=== PATIENT | female | born 1995 | race Caucasian/White ===

== ENCOUNTER 2016-04-21 10:24 | Emergency (ER) | payer MEDICAID ==
[2016-04-21] MEDS ORDERED: TETRACAINE HCL 0.5% OPH SOLN 2 ML OS ONE (12:04)
--- NOTE | 2016-04-21 12:26 | ER Document Report ---
ED Eye Complaint - General Chief Complaint: Eye Pain Stated Complaint: EYE PAIN Mode of Arrival: Ambulatory Information source: Patient Notes: 20-year-old female who presents to the emergency room today stating that she has had a contact in her right eye for a year and a half and that she feels as though the contact ripped in half when she was trying to remove it today. TRAVEL OUTSIDE OF THE [place] IN LAST 30 DAYS: No - HPI Onset: Other - 20-year-old female who presents to the emergency room today stating that she has had a contact in her right eye for a year and a half and that she feels as though the contact ripped in half when she was trying to remove it today Eye location: Right Injury: No Occurred at: Home Quality of pain: Achy, Burning, Dull Pain Level: 2 Contact lenses worn: Yes - Related Data Allergies/Adverse Reactions: No Known Allergies Allergy (Verified 04/21/16 10:59) Past Medical History - General Information source: Patient Last Menstrual Period: 08/27/15 - Social History Smoking Status: Current Every Day Smoker Cigarette use (# per day): Yes - 3/4 pack day Chew tobacco use (# tins/day): No Frequency of alcohol use: None Drug Abuse: None Family History: None Patient has suicidal ideation: No Patient has homicidal ideation: No Pulmonary Medical History: Reports: Hx Asthma Surgical Hx: Negative Review of Systems - Review of Systems Constitutional: No symptoms reported EENT: Eye pain, Tearing Cardiovascular: No symptoms reported Respiratory: No symptoms reported Gastrointestinal: No symptoms reported Genitourinary: No symptoms reported Female Genitourinary: No symptoms reported Musculoskeletal: No symptoms reported Skin: No symptoms reported Hematologic/Lymphatic: No symptoms reported Neurological/Psychological: No symptoms reported Physical Exam - Vital signs Vitals: Temp Pulse Resp BP Pulse Ox 97.5 F 62 16 111/61 99 04/21/16 10:41 04/21/16 10:41 04/21/16 10:41 04/21/16 10:41 04/21/16 10:41 Interpretation: Normal - General General appearance: Appears well, Alert - HEENT Head: Normocephalic, Atraumatic Eyes: Normal Conjunctiva: Injected Cornea: Corneal abrasion. No: Embedded foreign body, Flourescein stain uptake, Opacified, Superficial foreign body Extraocular movements intact: Yes Eyelashes: Normal Pupils: PERRL Visual acuity- Right eye: 20/40 Visual acuity- Left eye: 20/70 Visual acuity- Both eyes: 20/50 Corrective lenses worn: Yes - glasses but wrong prescription pt states Lids everted for exam: left: Normal - right eye red and irritated with an abrasion at the 6:00 Position laterally - Respiratory Respiratory status: No respiratory distress Chest status: Nontender Breath sounds: Normal Chest palpation: Normal - Cardiovascular Rhythm: Regular Heart sounds: Normal auscultation Murmur: No - Abdominal Inspection: Normal Distension: No distension Bowel sounds: Normal Tenderness: Nontender Organomegaly: No organomegaly - Back Back: Normal, Nontender - Extremities General upper extremity: Normal inspection, Nontender, Normal color, Normal ROM , Normal temperature General lower extremity: Normal inspection, Nontender, Normal color, Normal ROM , Normal temperature, Normal weight bearing. No: Teto's sign - Neurological Neuro grossly intact: Yes Cognition: Normal Orientation: AAOx4 Eduard Coma Scale Eye Opening: Spontaneous Eduard Coma Scale Verbal: Oriented Gause Coma Scale Motor: Obeys Commands Eduard Coma Scale Total: 15 Speech: Normal Motor strength normal: LUE, RUE, LLE, RLE Sensory: Normal - Psychological Associated symptoms: Normal affect, Normal mood - Skin Skin Temperature: Warm Skin Moisture: Dry Skin Color: Normal Course - Vital Signs Vital signs: Temp Pulse Resp BP Pulse Ox 97.5 F 62 16 111/61 99 04/21/16 10:41 04/21/16 10:41 04/21/16 10:41 04/21/16 10:41 04/21/16 10:41 - Transfer of Care Notes: 04/21/16 12:25 Patient was advised to follow-up with her eye doctor in 24-48 hours return to the emergency room for absolutely any change worsening condition antibiotic ointment has been prescribed and provided in the department. Discharge - Discharge Clinical Impression: Corneal abrasion due to contact lens Condition: Stable Disposition: HOME, SELF-CARE Instructions: Corneal Abrasion ([facility]) Additional Instructions: Corneal Abrasion You have a corneal abrasion, a scratch on the surface of the eye. The pain of a corneal abrasion feels like a sharp particle in the eye. Usually, antibiotics are placed in the eye to prevent infection. Occasionally, medication will be placed in the eye to dilate the pupil. This is done to relieve some of your discomfort and is only temporary. Pain medication may be required. Don't drive or operate machinery until you have the use of both your eyes. The abrasion usually is healed in one or two days. A follow-up examination to confirm healing is recommended. Call the doctor or return at once if you develop severe pain, decreasing vision, eye swelling, or purulent drainage. Prescriptions: Ciprofloxacin HCl/Dexameth [Ciprodex Otic Suspension 7.5 ml Bottle] 4 drop OT BID #1 bottle Forms: Smoking Cessation Education
[2016-04-21 12:38] VITALS: BP 106/51
== END 2016-04-21 12:37 | disposition home or self-care (01) ==
LOC: ER 10:24
DX: H18.821 Corneal disorder due to contact lens, right eye (principal); F17.200 Nicotine dependence, unspecified, uncomplicated; J45.909 Unspecified asthma, uncomplicated
CPT/HCPCS: 99283; J3490

== ENCOUNTER 2016-06-05 20:22 | Emergency (ER) | payer MEDICAID ==
[2016-06-05] MEDS ORDERED: ACETAMINOPHEN 325 MG TABLET PO ONE (21:50)
--- NOTE | 2016-06-05 21:50 | ER Document Report ---
ED Medical Screen (RME) - General Stated Complaint: FEVER Time seen by provider: 21:47 Mode of Arrival: Wheelchair Information source: Patient Notes: 21-year-old female presents to ED for fever cough runny nose pain in her chest when she coughs pain in her abdomen when she coughs and she is was due on June 02. States she has had this cold symptoms for 3 days. States her next OB appointment is Wednesday [facility]. I have greeted and performed a rapid initial assessment of this patient. A comprehensive ED assessment and evaluation of the patient, analysis of test results and completion of medical decision making process will be conducted by an additional ED providers. TRAVEL OUTSIDE OF THE [place] IN LAST 30 DAYS: No - Related Data Allergies/Adverse Reactions: No Known Allergies Allergy (Verified 04/21/16 10:59) Past Medical History Pulmonary Medical History: Reports: Hx Asthma
[2016-06-05] MEDS: ALBUTEROL SULFATE 0.083% NEB 2.5 MG/3 ML AMPUL NEB SCH ×2 (22:02→22:26)
== END 2016-06-06 00:15 | disposition left against medical advice (07) ==
LOC: ER 20:22
DX: R50.9 Fever, unspecified (principal); R05 Cough; R09.89 Other specified symptoms and signs involving the circulatory and respiratory systems; R07.89 Other chest pain; R10.9 Unspecified abdominal pain; J45.909 Unspecified asthma, uncomplicated; Z53.20 Procedure and treatment not carried out because of patient's decision for unspecified reasons
CPT/HCPCS: 94640 ×2; 99281; J3490

== ENCOUNTER 2016-06-07 10:51 | Outpatient (CLI) | payer MEDICAID ==
[2016-06-07 11:56] LABS: APPEARANCE,URINE CLOUDY; BILIRUBIN,URINE NEGATIVE (NEGATIVE); GLUCOSE, URINE NEGATIVE (NEGATIVE); KETONES,URINE NEGATIVE (NEGATIVE); LEUKOCYTE ESTERASE,URINE MODERATE (NEGATIVE); NITRITE,URINE NEGATIVE (NEGATIVE); PROTEIN,URINE 30 mg/dL (NEGATIVE); UROBILINOGEN,URINE NEGATIVE mg/dL (<2.0)
--- NOTE | 2016-06-07 12:02 | L&D Flow Sheet ---
LD Flowsheet Datetime Report Generated by CPN: 06/07/2016 12:00 Datetime: 06/07/2016 11:49 Vital Signs NBP Sys/Denise/Mean (mmHg): 128 (QS system process) : 83 (QS system process) : 101 (QS system process) Pulse: 79 (QS system process) Datetime: 06/07/2016 11:47 Monitor Interventions for UA: [place] Adjusted (Krystle Marlatt, RN) Datetime: 06/07/2016 11:30 Uterine Activity Monitor Mode: External; Palpation (Krystle Marlatt, RN) Frequency (min): irreg (Krystle Marlatt, RN) Quality: Mild (Krystle Marlatt, RN) Duration (sec): 50-60 (Krystle Marlatt, RN) Resting Tone (Palpate): Relaxed (Krystle Marlatt, RN) Assessment A Monitor Mode: External US (Krystle Marlatt, RN) FHR Baseline Rate : 115 (Krystle Marlatt, RN) Variability: Moderate 6-25 bpm (Krystle Marlatt, RN) Accelerations: 15X15 (Krystle Marlatt, RN) Decelerations: None (Krystle Marlatt, RN) Datetime: 06/07/2016 11:19 Vital Signs NBP Sys/Denise/Mean (mmHg): 120 (QS system process) : 66 (QS system process) : 87 (QS system process) Pulse: 69 (QS system process) Datetime: 06/07/2016 11:15 Frequency (min): every 5 minutes (Krystle Parr, RIAZ) Pain Pain Scale: 2 (Krystle Parr RN) Pain Presence: Intermittent (Krystle Parr RN) Pain Type: Cramping; Contraction (Krystle Parr RN) Pain Location: Abdomen (Krystle Parr RN) Pain Goal: 1 (Krystle Parr RN) Pain Relief Measures: Comfort Measures (Krystle Parr RN) Pain Coping: Talking Through Contractions; Breathing Through Contractions (Krystle Parr, RIAZ) Vaginal Bleeding: Normal Show (Krystle Parr, RIAZ) Rivera's Score Dilatation (cm): Closed (Krystle Marlatt, RN) Effacement: 0-30_ effaced (Krystle Marlatt, RN) Station: minus 3 (Krystle Marlatt, RN) Consistency: Medium (Krystle Marlatt, RN) Position: Posterior (Krystle Marlatt, RN) Total Rivera's Score: 1 (QS system process) : 0-4 = Unfavorable cervix (QS system process) Maternal Assessment Level of Consciousness: Fully Conscious (Krystle Marlatt, RN) DTR's/Clonus: DTRs 2+; No Clonus (Krystle Marlatt, RN) Headache: Denies (Krystle Marlatt, RN) Breath Sounds, Left: Clear and Equal (Krystle Marlatt, RN) Breath Sounds, Right: Clear and Equal (Krystle Marlatt, RN) Nausea/Vomiting: Denies (Krystle Marlatt, RN) RUQ Epigastric Pain: Denies (Krystle Marlatt, RN) Teaching Instructional Method: Demo; Verbal; Patient Instructed; Family/Support Person Instructed; Verbalized Understanding (Krystle Parr, RN) Plan of Care: Plan of Care Discussed (Krystle Parr, RN) Unit Routine: [place]wey to Room; Call Reich; Bed; Monitoring (Krystle Parr, RN) Pain Management: Comfort Measures (Krystle Parr, RN) Datetime: 06/07/2016 11:14 Patient Care Patient Position/Activity: Left Lateral; Low Fowlers (Krystle Parr, RN) Datetime: 06/07/2016 11:10 Vaginal Exam Dilatation (cm): 0.5 (Krystle Parr RN) Effacement (%): 20 (Krystle Prar RN) Station: -4 (Krystle Parr RN) Exam by: Parish Parr RN (Krystle Parr RN) Vaginal Bleeding: Scant (Krystle Parr RN) Cervix, Position: Posterior (Krystle Parr RN)
[2016-06-07 12:20] LABS: URINE BARBITURATES SCREEN NEGATIVE; URINE METHADONE SCREEN NEGATIVE; URINE OPIATES LOW NEGATIVE; URINE PHENCYCLIDINE SCREEN NEGATIVE
[2016-06-07] MEDS ORDERED: HYDROXYZINE PAMOATE 50 MG CAPSULE ONE (12:55)
== END 2016-06-07 12:58 | disposition home or self-care (01) ==
LOC: LC 10:51
PROVIDERS: ATTEND Obstetrics & Gynecology
PROC: 4A1HXCZ Monitoring of Products of Conception, Cardiac Rate, External Approach (ICD-10-PCS; principal; 2016-06-07)
DX: O47.1 False labor at or after 37 completed weeks of gestation (principal); Z3A.40 40 weeks gestation of pregnancy
CPT/HCPCS: 59025; 81005; 80307; J3490

== ENCOUNTER 2016-06-08 10:06 | Inpatient (IN) | payer MEDICAID ==
--- NOTE | 2016-06-08 10:10 | Non Stress Test Report ---
Non Stress Test Datetime Report Generated by CPN: 06/08/2016 10:10 DEMOGRAPHIC EGA NST: 40.5 INDICATION Indication for Study: Other Indication for Study (NST) Other: Labor Check MONITORING Monitor Explained: Monitor Explained; Test Explained; Patient Verbalized Understanding Time on Monitor: 06/07/2016 11:13 Time off Monitor: 06/07/2016 11:54 NST Duration: 41 NST INTERVENTIONS NST Interventions: PO Hydration Physician Notified NST: Dr. Triplett BABY A: [id number] Movement : Present Contraction Frequency : irreg FHR Baseline : 115 Accelerations : 15X15 Decelerations : None Variability : Moderate 6-25bpm NST Review: Meets Criteria for Reactive NST NST Review and Verified By : Hank Cummings RN NST Results: Reactive NST REPORT Report Trigger: Send Report
[2016-06-08] MEDS ORDERED: MISOPROSTOL 0.2 MG TABLET ONE (10:30)
[2016-06-08] MEDS ORDERED: LIDOCAINE 1% INJ-PF (10 MG/ML) 30 ML SDV ONE (10:30)
[2016-06-08] MEDS ORDERED: OXYTOCIN/NORMAL SALINE 20 UNIT/1,000 ML RTUINJ ONE ×2 (10:30→17:31)
[2016-06-08] MEDS ORDERED: PENICILLIN G-K 5 MILLION UNIT VIAL ONE ×2 (10:47→14:27)
[2016-06-08] MEDS ORDERED: PENICILLIN G POTASSIUM 5,000,000 UNIT in DEXTROSE 5%-WATER 100 ML IV ONE (11:07)
[2016-06-08] MEDS ORDERED: RINGERS SOLUTION,LACTATED 1,000 ML IV PRN (11:07)
[2016-06-08] MEDS ORDERED: RINGERS SOLUTION,LACTATED 1,000 ML IV ONE (11:07)
[2016-06-08 11:25] LABS: HEMATOCRIT 37.1 % (36.0-47.0); HEMOGLOBIN 12.2 g/dL (12.0-15.5); HGB HCT DIFFERENCE -0.5; MEAN CORPUSCULAR HGB CONC 32.9 g/dL (32.0-36.0); MEAN CORPUSCULAR VOLUME 85 fl (80-97); RED BLOOD COUNT 4.36 10^6/uL (3.72-5.28); RED CELL DISTRIBUTION WIDTH 13.5 % (11.5-14.0); WHITE BLOOD COUNT 29.9 10^3/uL (4.0-10.5)
[2016-06-08] MEDS ORDERED: EPHEDRINE SULFATE INJ 50 MG/1 ML AMPULE ONE (11:39)
[2016-06-08] MEDS ORDERED: FENTANYL/BUPIVACAINE/NS/PF 200 MCG/100 ML RTUINJ EPI ONE (11:39)
[2016-06-08] MEDS ORDERED: BUPIVACAINE HCL 0.25 % INJ/PF (2.5 MG/1 ML) 30 ML VIAL ONE (11:39)
[2016-06-08 11:49] LABS: BASOPHILS % (MANUAL) 0 % (0-2); EOSINOPHILS % (MANUAL) 0 % (0-6); LYMPHOCYTES % (MANUAL) 5 % (13-45); RBC MORPHOLOGY COMMENT NORMO-CYTIC/CHROMIC; TOTAL CELLS COUNTED 100
--- NOTE | 2016-06-08 12:01 | L&D Flow Sheet ---
LD Flowsheet Datetime Report Generated by CPN: 06/08/2016 12:00 Datetime: 06/08/2016 11:57 Pulse: 112 (QS system process) SpO2 (%): 99 (QS system process) Datetime: 06/08/2016 11:56 Procedure Verify: Correct Patient Identity; Correct Side and Site are Marked; Accurate Procedure Consent Form; Agreement on Procedure to be Done; Correct Patient Position; Relevant Images and Results are Properly Labeled and Displayed; Addressed Need to Administer Antibiotics or Fluids for Irrigation; Safety Precautions Based on Patient History or Medication Use (Deny Mac RN) Anesthesia Plans: Epidural (Deny Mac RN) Epidural Positioning: Sitting (Deny Mac RN) Anesthesia Comments: Dr Bartholomew at bedside for epidural, consent signed (Deny Mac RN) Datetime: 06/08/2016 11:53 NBP Sys/Denise/Mean (mmHg): 173 (QS system process) : 71 (QS system process) : 102 (QS system process) Pulse: 102 (QS system process) Comments: Monitors removed for epidural placement; RN remains at bedside to attempt to obtain fht and assess pt. (Deny Mac RN) Procedure Verify: Correct Patient Identity; Correct Side and Site are Marked; Accurate Procedure Consent Form; Agreement on Procedure to be Done; Correct Patient Position; Relevant Images and Results are Properly Labeled and Displayed; Addressed Need to Administer Antibiotics or Fluids for Irrigation; Safety Precautions Based on Patient History or Medication Use (Deny Mac RN) Anesthesia Plans: Epidural (Deny Mac RN) Epidural Positioning: Sitting (Deny Mac RN) Datetime: 06/08/2016 11:52 Pulse: 124 (QS system process) SpO2 (%): 98 (QS system process) Datetime: 06/08/2016 11:46 Procedure Verify: Correct Patient Identity; Correct Side and Site are Marked; Accurate Procedure Consent Form; Agreement on Procedure to be Done; Relevant Images and Results are Properly Labeled and Displayed; Addressed Need to Administer Antibiotics or Fluids for Irrigation; Safety Precautions Based on Patient History or Medication Use (Deny Mac RN) Anesthesia Plans: Epidural (Deny Mac RN) Communication Comments: Dr Bartholomew called pt requesting epidural (Deny Mac RN) Datetime: 06/08/2016 11:22 NBP Sys/Denise/Mean (mmHg): 145 (QS system process) : 95 (QS system process) : 115 (QS system process) Pulse: 96 (QS system process) Datetime: 06/08/2016 11:08 Communication Comments: A Emmel CNM states pt may have epidural (Deny Bubba, RN) Datetime: 06/08/2016 11:03 IV/Blood Work: IV Bag Number @ 2 (Deny Bubba, RN) Patient Position/Activity: Left Lateral (Deny Bubba, RN) Datetime: 06/08/2016 10:52 NBP Sys/Denise/Mean (mmHg): 124 (QS system process) : 64 (QS system process) : 87 (QS system process) Pulse: 91 (QS system process) Datetime: 06/08/2016 10:46 Antibiotics: Start Antibiotics; Penicillin IV (Units) @ [id number] (Deny Bubba, RN) Medication Comments: IVPB (Deny Bubba, RN) Datetime: 06/08/2016 10:35 IV/Blood Work: IV Bolus Started (Deny Bubba, RN) Patient Care Comments: LR (Deny Bubba, RN) Datetime: 06/08/2016 10:33 IV/Blood Work: IV Started (Deyn Bubba, RN) Datetime: 06/08/2016 10:28 Procedures: Consents Signed (Deny Bubba, RN) Datetime: 06/08/2016 10:25 Exam by: A Emmel CNM (Deny Mac, RN) Vaginal Exam Comments: Anterior Lip (Deny Mac, RN) Preparation for Delivery: Setup for Delivery (Deny Mac, RN) Communication Comments: A Emmel CNM at bedside to assess pt (Deny Mac, RN) Datetime: 06/08/2016 10:22 NBP Sys/Denise/Mean (mmHg): 120 (QS system process) : 59 (QS system process) : 82 (QS system process) Pulse: 102 (QS system process)
[2016-06-08 13:31] LABS: APPEARANCE,URINE SLIGHTLY-CLOUDY; BILIRUBIN,URINE NEGATIVE (NEGATIVE); GLUCOSE, URINE NEGATIVE (NEGATIVE); KETONES,URINE 80 mg/dL (NEGATIVE); LEUKOCYTE ESTERASE,URINE TRACE (NEGATIVE); NITRITE,URINE NEGATIVE (NEGATIVE); PROTEIN,URINE 30 mg/dL (NEGATIVE); URINE SPECIFIC GRAVITY 1.027; UROBILINOGEN,URINE NEGATIVE mg/dL (<2.0)
[2016-06-08] MEDS ORDERED: PENICILLIN G-K 5 MILLION UNIT VIAL IV SCH (14:00)
--- NOTE | 2016-06-08 14:01 | L&D Flow Sheet ---
LD Flowsheet Datetime Report Generated by CPN: 06/08/2016 14:00 Datetime: 06/08/2016 13:46 NBP Sys/Denise/Mean (mmHg): 107 (QS system process) : 58 (QS system process) : 77 (QS system process) Pulse: 125 (QS system process) Datetime: 06/08/2016 13:41 Patient Care Comments: juice given (Deny Bubba, RN) Datetime: 06/08/2016 13:30 NBP Sys/Denise/Mean (mmHg): 105 (QS system process) : 56 (QS system process) : 74 (QS system process) Pulse: 107 (QS system process) Respirations: 16 (Deny Mac RN) Monitor Mode: External; Palpation (Deny Mac, RN) Frequency (min): 6-7 (Deny Mac, RN) Quality: Mild/Moderate (Deny Mac, RN) Duration (sec): 80-90 (Deny Goodet, RN) Duration Criteria: Less than Two 120 Second Contractions (Deny Mac, RN) Resting Tone (Palpate): Relaxed (Deny Mac, RN) Monitor Mode: External US (Deny Mac, RN) FHR Baseline Rate : 120 (Deny Goodet, RN) Variability: Moderate 6-25 bpm (Deny Bubba, RN) Accelerations: 15X15 (Deny Rajputeet, RN) Decelerations: None (Deny Mac, RN) Level of Consciousness: Fully Conscious (Deny Mac, RN) Headache: Denies (Deny Mac, RN) Nausea/Vomiting: Denies (Deny Mac, RN) RUQ Epigastric Pain: Denies (Deny Mac, RN) Communication: RN at Bedside; RN Reviewed Strip (Deny Mac RN) Datetime: 06/08/2016 13:16 NBP Sys/Denise/Mean (mmHg): 106 (QS system process) : 60 (QS system process) : 76 (QS system process) Pulse: 110 (QS system process) Datetime: 06/08/2016 13:15 Temperature (F): 97.3 (Deny Bubba, RN) Temperature (C): 36.3 (QS system process) Monitor Mode: External; Palpation (Deny Mac, RN) Frequency (min): 2-5 (Deny Bubba, RN) Quality: Mild/Moderate (Deny Bubba, RN) Duration (sec): 70-90 (Deny Bubba, RN) Duration Criteria: Less than Two 120 Second Contractions (Deny Bubba, RN) Pattern: Normal: <= 5 Contractions in 10 Minutes (Deny Bubba, RN) Resting Tone (Palpate): Relaxed (Deny Bubba, RN) Monitor Mode: External US (Deny Goodet, RN) FHR Baseline Rate : 120 (Deny Bubba, RN) FHR Baseline Changes: No Baseline Change (Deny Bubba, RN) Variability: Moderate 6-25 bpm (Deny Bubba, RN) Accelerations: 15X15 (Deny Bubba, RN) Decelerations: None (Deny Mac RN) Communication: RN at Bedside; RN Reviewed Strip (Deny Mac RN) Datetime: 06/08/2016 13:00 Monitor Mode: External; Palpation (Deny Mac RN) Monitor Interventions for UA: [place] Adjusted (Deny Mac RN) Quality: Mild/Moderate (Deny Mac RN) Resting Tone (Palpate): Relaxed (Deny Mac RN) Contraction Comments: UTD; Rn adjusted (Deny Mac RN) Monitor Mode: External US (Deny Mac RN) FHR Baseline Rate : 120 (Deny Mac RN) Variability: Moderate 6-25 bpm (Deny Mac RN) Accelerations: 15X15 (Deny Mac RN) Decelerations: None (Deny Mac RN) Comments: Broken tracing, RN adjusting (Deny Mac RN) Pain Scale: 2 (Deny Mac RN) Pain Presence: Intermittent (Deny Mac RN) Pain Type: Contraction (Deny Mac RN) Pain Location: Abdomen; Back (Deny Mac RN) Pain Relief Measures: Epidural Given; Comfort Measures (Deny Mac RN) Pain Coping: Sleeping; Declines Medication or Epidural (Deny Mac RN) Communication: RN at Bedside; RN Reviewed Strip (Deny Mac RN) Datetime: 06/08/2016 12:46 NBP Sys/Denise/Mean (mmHg): 121 (QS system process) : 59 (QS system process) : 84 (QS system process) Pulse: 95 (QS system process) Datetime: 06/08/2016 12:45 Monitor Mode: External; Palpation (Deny Bubba, RN) Frequency (min): 5-6 (Deny Bubba, RN) Quality: Mild/Moderate (Deny Bubba, RN) Duration (sec): 70-90 (Deny Bubba, RN) Duration Criteria: Less than Two 120 Second Contractions (Deny Bubba, RN) Pattern: Normal: <= 5 Contractions in 10 Minutes (Deny Bubba, RN) Resting Tone (Palpate): Relaxed (Deny Bubba, RN) Monitor Mode: External US (Deny Bubba, RN) FHR Baseline Rate : 120 (Deny Bubba, RN) FHR Baseline Changes: No Baseline Change (Deny Bubba, RN) Variability: Moderate 6-25 bpm (Deny Bubba, RN) Accelerations: 15X15 (Deny Bubba, RN) Decelerations: None (Deny Mac RN) Communication: RN at Bedside; RN Reviewed Strip (Deny Mac RN) Datetime: 06/08/2016 12:32 NBP Sys/Denise/Mean (mmHg): 120 (QS system process) : 55 (QS system process) : 81 (QS system process) Pulse: 116 (QS system process) Datetime: 06/08/2016 12:30 Monitor Mode: External; Palpation (Deny Mac RN) Frequency (min): 3.5-5 (Deny Mac RN) Quality: Mild/Moderate (Deny Mac RN) Duration (sec): 70-80 (Deny Mac RN) Duration Criteria: Less than Two 120 Second Contractions (Deny Mac RN) Pattern: Normal: <= 5 Contractions in 10 Minutes (Deny Mac RN) Resting Tone (Palpate): Relaxed (Deny Mac RN) Monitor Mode: External US (Deny Mac RN) FHR Baseline Rate : 120 (Deny Mac, RN) Variability: Moderate 6-25 bpm (Deny Mac, RN) Accelerations: 15X15 (Deny Mac, RN) Decelerations: None (Deny Mac RN) Communication: RN at Bedside; RN Reviewed Strip (Deny Mac RN) Datetime: 06/08/2016 12:17 Pulse: 128 (QS system process) SpO2 (%): 97 (QS system process) Datetime: 06/08/2016 12:16 IV/Blood Work: IV Bag Number @ 3 (Deny Mac RN) Patient Care Comments: LR 125ml/hr (Deny Mac RN) Datetime: 06/08/2016 12:15 NBP Sys/Denise/Mean (mmHg): 112 (QS system process) : 56 (QS system process) : 79 (QS system process) Pulse: 105 (QS system process) Contraction Comments: UTD; RN adjusting (Deny Mac RN) Monitor Mode: External US (Deny Mac RN) FHR Baseline Rate : 120 (Deny Mac RN) Variability: Moderate 6-25 bpm (Deny Mac RN) Accelerations: None (Deny Mac RN) Decelerations: None (Deny Mac RN) Comments: Broken tracing; RN adjusting (Deny Mac RN) I/O Interventions: Garg Cath Inserted (Deny Mac RN) Patient Care Comments: 14F pt tolerated well, clear yellow urine output (Deny Mac RN) Communication: RN at Bedside; RN Reviewed Strip (Deny Mac RN) Datetime: 06/08/2016 12:14 NBP Sys/Denise/Mean (mmHg): 116 (QS system process) : 59 (QS system process) : 81 (QS system process) Pulse: 103 (QS system process) Datetime: 06/08/2016 12:13 NBP Sys/Denise/Mean (mmHg): 121 (QS system process) : 67 (QS system process) : 87 (QS system process) Pulse: 100 (QS system process) Datetime: 06/08/2016 12:12 NBP Sys/Denise/Mean (mmHg): 120 (QS system process) : 66 (QS system process) : 85 (QS system process) Pulse: 113 (QS system process) Datetime: 06/08/2016 12:11 NBP Sys/Denise/Mean (mmHg): 120 (QS system process) : 61 (QS system process) : 82 (QS system process) Pulse: 111 (QS system process) Datetime: 06/08/2016 12:10 NBP Sys/Denise/Mean (mmHg): 122 (QS system process) : 58 (QS system process) : 84 (QS system process) Pulse: 87 (QS system process) Pain Scale: 3 (Deny Bubba, RN) Pain Presence: Intermittent (Deny Bubba, RN) Pain Type: Contraction (Deny Bubba, RN) Pain Location: Abdomen (Deny Bubba, RN) Anesthesia Level Check: T10- Umbilicus (Deny Bubba, RN) Datetime: 06/08/2016 12:07 NBP Sys/Denise/Mean (mmHg): 152 (QS system process) : 72 (QS system process) : 104 (QS system process) Pulse: 112 (QS system process) Datetime: 06/08/2016 12:06 NBP Sys/Denise/Mean (mmHg): 148 (QS system process) : 81 (QS system process) : 109 (QS system process) Pulse: 91 (QS system process) Datetime: 06/08/2016 12:05 NBP Sys/Denise/Mean (mmHg): 143 (QS system process) : 85 (QS system process) : 109 (QS system process) Pulse: 111 (QS system process) Epidural Procedure: Cath Placed; Loading Dose (Deny Bubba, RN) Datetime: 06/08/2016 12:04 Epidural Procedure: Test Dose (Deny Bubba, RN) Datetime: 06/08/2016 12:02 Pulse: 101 (QS system process) SpO2 (%): 99 (QS system process) Datetime: 06/08/2016 12:00 Monitor Mode: External; Palpation (Deny Mac RN) Frequency (min): 4-6 (Deny Mac RN) Quality: Moderate (Deny Mac RN) Duration (sec): 70-90 (Deny Mac RN) Duration Criteria: Less than Two 120 Second Contractions (Deny Mac RN) Pattern: Normal: <= 5 Contractions in 10 Minutes (Deny Mac RN) Resting Tone (Palpate): Relaxed (Deny Mac RN) Monitor Mode: External US (Deny Mac RN) FHR Baseline Rate : 120 (Deny Mac RN) Variability: Moderate 6-25 bpm (Deny Mac RN) Accelerations: 15X15 (Deny Mac RN) Decelerations: None (Deny Mac RN) Comments: Broken tracing, RN adjusting (Deny Bubba, RN) Communication: RN at Bedside; RN Reviewed Strip (Deny Mac RN)
[2016-06-08 14:05] LABS: URINE BARBITURATES SCREEN NEGATIVE; URINE METHADONE SCREEN NEGATIVE; URINE OPIATES LOW NEGATIVE; URINE PHENCYCLIDINE SCREEN NEGATIVE
[2016-06-08] MEDS ORDERED: DINOPROSTONE 10 MG VAGINAL INSERT.SR PV PRN (14:46)
[2016-06-08] MEDS ORDERED: OXYTOCIN/NORMAL SALINE 1,000 ML IV PRN ×2 (14:46→16:45)
[2016-06-08] MEDS ORDERED: PENICILLIN G POTASSIUM 2,500,000 UNIT in DEXTROSE 5%-WATER 50 ML IV SCH (15:09)
[2016-06-08] MEDS ORDERED: CITRIC ACID/SODIUM CITRATE ORAL SOLN 15 ML UDCUP ONE (15:17)
[2016-06-08] MEDS ORDERED: AMPICILLIN SOD INJ 2 GM VIAL ONE (15:17)
[2016-06-08] MEDS ORDERED: PROMETHAZINE HCL INJ 25 MG/1 ML VIAL IV PRN ×2 (15:53→16:45)
[2016-06-08] MEDS ORDERED: FENTANYL CITRATE INJ/PF 100 MCG/2 ML AMPUL IV PRN ×3 (15:53)
[2016-06-08] MEDS ORDERED: DIPHENHYDRAMINE HCL 50 MG/ML VIAL IV PRN (15:53)
[2016-06-08] MEDS ORDERED: ONDANSETRON HCL INJ/PF 4 MG/2 ML SDV IV PRN (15:53)
[2016-06-08] MEDS ORDERED: MEPERIDINE HCL/PF INJ 25 MG/1 ML DISP.SYRIN IV PRN (15:53)
--- NOTE | 2016-06-08 16:01 | L&D Flow Sheet ---
LD Flowsheet Datetime Report Generated by CPN: 06/08/2016 16:00 Datetime: 06/08/2016 15:16 NBP Sys/Denise/Mean (mmHg): 120 (QS system process) : 68 (QS system process) : 88 (QS system process) Pulse: 118 (QS system process) Datetime: 06/08/2016 15:15 Dilatation (cm): 10.0 (Deny Mac RN) Effacement (%): 100 (Deny Mac, RN) Station: -2 (Deny Bubba, RN) Exam by: Dr Levy (Deny [place]ofleet, RN) Datetime: 06/08/2016 15:11 Actions for Decelerations: Pitocin Off; IV Bolus; Sterile Vaginal Exam; Provider Reviewed Strip; Provider Notified (Deny Mac, RN) Communication Comments: Dr Levy at bedside (Deny Mac, RN) Datetime: 06/08/2016 15:10 Patient Position/Activity: Left Lateral (Deny [place], RN) Datetime: 06/08/2016 15:01 NBP Sys/Denise/Mean (mmHg): 106 (QS system process) : 59 (QS system process) : 77 (QS system process) Pulse: 118 (QS system process) Datetime: 06/08/2016 14:56 Pitocin (milliunit): Pitocin Started (milliunits) @ 2 (Deny Bubba, RN) Datetime: 06/08/2016 14:45 NBP Sys/Denise/Mean (mmHg): 110 (QS system process) : 59 (QS system process) : 79 (QS system process) Pulse: 93 (QS system process) Datetime: 06/08/2016 14:41 Temperature (F): 97.9 (Deny Mac RN) Temperature (C): 36.6 (QS system process) Datetime: 06/08/2016 14:39 Pulse: 119 (QS system process) SpO2 (%): 97 (QS system process) Datetime: 06/08/2016 14:37 Dilatation (cm): 9.0 (Deny Mac RN) Effacement (%): 100 (Deny Mac RN) Station: -2 (Deny Mac RN) Exam by: Chen Cortes CNM (Deny Mac RN) Membrane Status: Ruptured (Deny Mac RN) Membranes Rupture Method: Artificial (Deny Mac RN) Amniotic Fluid Color: Light Meconium (Deny Bubba, RN) Amniotic Fluid Amount: Large (Deny Mac, RN) Amniotic Fluid Odor: Normal (Deny Mac, RN) Medication Comments: PCN [id number] units IVPB (Deny Mac, RN) Datetime: 06/08/2016 14:31 NBP Sys/Denise/Mean (mmHg): 101 (QS system process) : 63 (QS system process) : 77 (QS system process) Pulse: 90 (QS system process) Datetime: 06/08/2016 14:17 NBP Sys/Denise/Mean (mmHg): 110 (QS system process) : 56 (QS system process) : 76 (QS system process) Pulse: 129 (QS system process) Datetime: 06/08/2016 14:01 NBP Sys/Denise/Mean (mmHg): 114 (QS system process) : 58 (QS system process) : 77 (QS system process) Pulse: 110 (QS system process) Datetime: 06/08/2016 14:00 Monitor Mode: External; Palpation (Deny Mac RN) Frequency (min): 5-5.5 (Deny Mac RN) Quality: Mild/Moderate (Deny Mac RN) Duration (sec): 80-100 (Deny Mac RN) Duration Criteria: Less than Two 120 Second Contractions (Deny Mac RN) Pattern: Normal: <= 5 Contractions in 10 Minutes (Deny Mac RN) Resting Tone (Palpate): Relaxed (Deny Mac RN) Monitor Mode: External US (Deny aMc RN) FHR Baseline Rate : 120 (Deny Mac RN) Variability: Moderate 6-25 bpm (Deny Mac RN) Accelerations: 15X15 (Deny Mac RN) Decelerations: None (Deny Mac RN) Pain Scale: 2 (Deny Mac RN) Pain Coping: Sleeping (Deny aMc RN) Communication: RN at Bedside; RN Reviewed Strip (Deny Mac RN)
[2016-06-08] MEDS ORDERED: LIDOCAINE 2% INJ-PF (20 MG/ML) 10 ML AMPUL ONE (16:37)
[2016-06-08] MEDS ORDERED: FENTANYL CITRATE INJ/PF 100 MCG/2 ML AMPUL ONE (16:37)
[2016-06-08] MEDS ORDERED: DIPH/PERTUSS(ACELL)/TETANUS VAC/PF 0.5 ML SYR (>=10YO) IM PRN (16:45)
[2016-06-08] MEDS ORDERED: ACETAMINOPHEN 325 MG TABLET PO PRN (16:45)
[2016-06-08] MEDS ORDERED: MEASLES,MUMPS&RUBELLA VACC/PF 0.5 ML VIAL SUBCUT PRN (16:45)
[2016-06-08] MEDS ORDERED: OXYCODONE-ACETAMINOPHEN 5-325 MG TABLET PO PRN (16:45)
[2016-06-08] MEDS ORDERED: MORPHINE SULFATE 10 MG/ML INJ ONE (16:56)
[2016-06-08] MEDS: MORPHINE SULFATE 10 MG/ML INJ IV PRN ×2 (16:56→18:00)
[2016-06-08] MEDS ORDERED: KETOROLAC TROMETHAMINE INJ/PF 30 MG/1 ML SDV ONE (17:02)
[2016-06-08] MEDS ORDERED: FUROSEMIDE INJ/PF 40 MG/4 ML SDV ONE (17:21)
[2016-06-08] MEDS ORDERED: LORAZEPAM INJ 2 MG/1 ML VIAL ONE (17:22)
--- NOTE | 2016-06-08 18:39 | Admission Physical ---
Datetime Report Generated by CPN: 06/08/2016 18:39 CURRENT ADMISSION Chief Complaint: Uterine Contractions Admit Plan: Admit to Unit ALLERGIES Medication Allergies: No Medication Allergies: No Known Allergies (06/08/2016) Latex: No Latex Allergies Food Allergies: OBSTETRICAL HISTORY EDC: 06/02/2016 00:00 : 1 Para: 0 SEE RECORDS Alcohol: No Marijuana : No Cocaine: No Other Illicit Drugs: No Cigarettes: Current Everyday Smoker. [id number] Cigarette Frequency: 5 - 10 per day Advised to Stop: Yes PHYSICAL EXAM General: Normal HEENT: Normal Neurologic: Normal Thyroid: Normal Heart: Normal Lungs: Normal Breast: Normal Back: Normal Abdomen: Normal Genitourinary Exam: Normal Extremities: Normal DTRs: Normal Pelvic Type: Adequate Vital Signs: Reviewed VAGINAL EXAM Dilatation: 9 Effacement: 100 Station: 0 MEMBRANES Membranes: Intact FETUS A EGA: 40.6 Monitoring: External US FHR- Baseline: 120 Variability: Moderate 6-25bpm Accelerations: 15X15 FHR Category: Category I Presentation: Vertex Admit Comment: 21 yo admitted in active labor sent from office EDC 06/02/16 EGA 40.6 history of drug addiction 2 years ago depression smoker- 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
--- NOTE | 2016-06-08 18:54 | Delivery Summary ---
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 bicornuate uterus Rh negative GBS positive cvx / intact ctxs- moderate palpation admit gbs prophylaxis pain management anticipate vaginal delivery expectant management DELIVERY PERSONNEL Delivery Doctor:: Mildred Levy MD Anesthesiologist:: Mu Bartholomew MD INSTALLATION COORDINATOR:: Inessa Ferguson CRNA Labor and Delivery Nurse:: Deny Mac RN Equipment Operator/Laborer/Supervisor:: Deny Mac RN Neonatal Nurse Practitioner:: JANIA Moreno Nursery Nurse:: Allison Farley RN Tax Credit Leasing Consultant/CONTINUOUS PICKLING LINE PICKLER: Blane Vargas, Tax Credit Leasing Consultant/CONTINUOUS PICKLING LINE PICKLER: Allison Kang, MINE ANALYST MATERNAL INFORMATION Delivery Anesthesia: Epidural Medications After Delivery: Pitocin Bolus-Please Comment; Pitocin Drip 20 Units/1000ml NSS Estimated Blood Loss (ml): 600 LABOR SUMMARY EDC: 06/02/2016 00:00 No. Babies in Womb: 1 Attempted: No Labor Anesthesia: Epidural LABOR INFORMATION Reason for Induction: Not Applicable Onset of Labor: 06/07/2016 12:00 Complete Dilatation: 06/08/2016 15:15 Oxytocin: Augmentation Group B Beta Strep: positive Antibiotics # of Doses: 2 Antibiotics Time of Last Dose: 1437 Name of Antibiotic Given: PCN Steroids Given: None Reason Steroids Not Administered: Not Applicable MEMBRANES Membranes Rupture Method: Artificial Rupture of Membranes: 06/08/2016 14:37 Length of Rupture (hr): 1.07 Amniotic Fluid Color: Light Meconium Amniotic Fluid Amount: Large Amniotic Fluid Odor: Normal STAGES OF LABOR Stage 1 hr: 27 Stage 1 min: 15 Stage 2 hr: 0 Stage 2 min: 26 Stage 3 hr: 0 Stage 3 min: 1 Total Time in Labor hr: 27 Total Time in Labor min: 42 CSECTION DELIVERY Primary Indication: Other Other Primary Indication: Face Presentation not compatable with vaginal delivery CSection Urgency: Non-Scheduled CSection Incidence: Primary Labor: Labor Elective: Nonelective BABY A INFORMATION Delivery Date/Time: 06/08/2016 15:41 Method of Delivery: Born in Route : No : N/A Forceps: N/A Vacuum Extraction: N/A Shoulder Dystocia : No PRESENTATION/POSITION BABY A Presentation: Other Cephalic Presentation: Face Breech Presentation: N/A PLACENTA INFORMATION BABY A Placenta Delivery Time : 06/08/2016 15:42 Placenta Method of Delivery: Manual Removal Placenta Status: Delivered SCORES BABY A Heart Rate 1 min: >100 bpm Resp Effort 1 min: Good Cry Reflex Irritability 1 min: Cough or Sneeze or Pulls Away Muscle Tone 1 min: Some Flexion of Extremities Color 1 min: Body [place], Extremities Blue Resuscitation Effort 1 min: Tactile Stimulation SCORE 1 MIN: 8 Heart Rate 5 min: >100 bpm Resp Effort 5 min: Good Cry Reflex Irritability 5 min: Cough or Sneeze or Pulls Away Muscle Tone 5 min: Active Motion Color 5 min: Body [place], Extremities Blue Resuscitation Effort 5 min: Tactile Stimulation SCORE 5 MIN: 9 INFORMATION BABY A Gestational Age at Delivery: 40.6 Gestational Status: Full Term- 39- 40.6 Weeks Infant Outcome : Liveborn Condition : Stable Sex: Female IDENTIFICATION BABY A Verification Date/Time: 06/08/2016 15:54 ID Band Number: [id number] Mother's Name Verified: Yes Infant RN Verifying Infant: S Bubba RN B [place] US WEIGHT/LENGTH BABY A Infant Birthweight (gm): 2915 Infant Weight (lb): 6 Infant Weight (oz): 7 Infant Length (in): 19.00 Length (cm): 48.26 CORD INFORMATION BABY A No. Cord Vessels: 3 Nuchal Cord : N/A Cord Blood Taken: Yes-For Eval (Mom's Blood Type - or O+) Suction: Mouth; Nose ASSESSMENT BABY A Physical Findings- Other: See nursery assessment Skin to Skin: No Engineering Coordinator/ALS Called : No Infant Care By: Martine RN Transferred To: [facility]
--- NOTE | 2016-06-08 19:01 | L&D Flow Sheet ---
LD Flowsheet Datetime Report Generated by CPN: 06/08/2016 19:00 Datetime: 06/08/2016 18:22 Pulse: 105 (QS system process) SpO2 (%): 94 (QS system process) Datetime: 06/08/2016 18:20 Pulse: 110 (QS system process) SpO2 (%): 95 (QS system process) Datetime: 06/08/2016 18:17 Pulse: 106 (QS system process) SpO2 (%): 94 (QS system process) Datetime: 06/08/2016 18:15 Pulse: 106 (QS system process) SpO2 (%): 95 (QS system process) Datetime: 06/08/2016 18:11 NBP Sys/Denise/Mean (mmHg): 134 (QS system process) : 68 (QS system process) : 95 (QS system process) Pulse: 100 (QS system process) Datetime: 06/08/2016 18:10 Pulse: 107 (QS system process) SpO2 (%): 97 (QS system process) Datetime: 06/08/2016 18:05 Pulse: 99 (QS system process) SpO2 (%): 97 (QS system process) Datetime: 06/08/2016 18:01 Pulse: 102 (QS system process) SpO2 (%): 94 (QS system process) Datetime: 06/08/2016 18:00 Pulse: 101 (QS system process) SpO2 (%): 96 (QS system process) Pain Scale: 4 (Deny Bubba, RN) Pain Presence: Intermittent (Deny Bubba, RN) Pain Type: Ache (Deny Bubba, RN) Pain Location: Abdomen (Deny Bubba, RN) Datetime: 06/08/2016 17:56 NBP Sys/Denise/Mean (mmHg): 128 (QS system process) : 62 (QS system process) : 89 (QS system process) Pulse: 94 (QS system process) Pulse: 107 (QS system process) SpO2 (%): 94 (QS system process) Datetime: 06/08/2016 17:55 Pulse: 99 (QS system process) SpO2 (%): 97 (QS system process) Datetime: 06/08/2016 17:50 Pulse: 99 (QS system process) Pulse: 100 (QS system process) SpO2 (%): 94 (QS system process) Datetime: 06/08/2016 17:45 Pulse: 96 (QS system process) Pulse: 92 (QS system process) SpO2 (%): 95 (QS system process) SpO2 (%): 94 (QS system process) Datetime: 06/08/2016 17:42 NBP Sys/Denise/Mean (mmHg): 128 (QS system process) : 64 (QS system process) : 89 (QS system process) Pulse: 97 (QS system process) Datetime: 06/08/2016 17:40 Pulse: 94 (QS system process) SpO2 (%): 96 (QS system process) Datetime: 06/08/2016 17:35 Pulse: 81 (QS system process) SpO2 (%): 97 (QS system process) Datetime: 06/08/2016 17:30 Pulse: 92 (QS system process) SpO2 (%): 98 (QS system process) Datetime: 06/08/2016 17:26 NBP Sys/Denise/Mean (mmHg): 130 (QS system process) : 71 (QS system process) : 95 (QS system process) Pulse: 88 (QS system process) Datetime: 06/08/2016 17:25 Pulse: 82 (QS system process) SpO2 (%): 99 (QS system process) Datetime: 06/08/2016 17:20 Pulse: 104 (QS system process) SpO2 (%): 99 (QS system process) Datetime: 06/08/2016 17:15 Pulse: 93 (QS system process) SpO2 (%): 98 (QS system process) Datetime: 06/08/2016 17:11 NBP Sys/Denise/Mean (mmHg): 133 (QS system process) : 77 (QS system process) : 97 (QS system process) Pulse: 105 (QS system process) Datetime: 06/08/2016 17:10 Pulse: 107 (QS system process) SpO2 (%): 100 (QS system process) Datetime: 06/08/2016 17:05 Pulse: 104 (QS system process) SpO2 (%): 100 (QS system process) Datetime: 06/08/2016 17:00 Pulse: 95 (QS system process) SpO2 (%): 100 (QS system process) Pain Scale: 4 (Deny Bubba, RN) Pain Presence: Intermittent (Deny Bubba, RN) Pain Type: Ache (Deny Bubba, RN) Pain Location: Abdomen (Deny Bubba, RN) Datetime: 06/08/2016 16:57 NBP Sys/Denise/Mean (mmHg): 127 (QS system process) : 61 (QS system process) : 84 (QS system process) Pulse: 86 (QS system process) Datetime: 06/08/2016 16:55 Pulse: 85 (QS system process) SpO2 (%): 100 (QS system process) Datetime: 06/08/2016 16:51 NBP Sys/Denise/Mean (mmHg): 100 (QS system process) : 74 (QS system process) : 83 (QS system process) Pulse: 117 (QS system process) Datetime: 06/08/2016 16:50 Pulse: 110 (QS system process) SpO2 (%): 99 (QS system process) Datetime: 06/08/2016 16:49 Pulse: 113 (QS system process) SpO2 (%): 76 (QS system process) Datetime: 06/08/2016 16:46 NBP Sys/Denise/Mean (mmHg): 124 (QS system process) : 72 (QS system process) : 92 (QS system process) Pulse: 116 (QS system process) Datetime: 06/08/2016 16:45 Pulse: 88 (QS system process) Respirations: 20 (Deny Bubba, RN) SpO2 (%): 99 (QS system process) Pain Scale: 4 (Deny Bubba, RN) Pain Presence: Intermittent (Deny Bubba, RN) Pain Type: Ache (Deny Bubba, RN) Pain Location: Abdomen (Deny Bubba, RN) Datetime: 06/08/2016 16:41 NBP Sys/Denise/Mean (mmHg): 121 (QS system process) : 67 (QS system process) : 88 (QS system process) Pulse: 100 (QS system process) Datetime: 06/08/2016 16:40 Pulse: 82 (QS system process) SpO2 (%): 100 (QS system process) Datetime: 06/08/2016 16:33 Stage of : Recovery (Deny Mac RN) Respirations: 22 (Deny Mac RN) Temperature (F): 98.1 (Deny Mac RN) Temperature (C): 36.7 (QS system process) Pain Scale: 5 (Deny Mac RN) Pain Presence: Constant (Deny Mac RN) Pain Type: Ache (Deny Mac RN) Pain Location: Abdomen (Deny Mac RN) Pain Relief Measures: Comfort Measures (Deny Mac RN) Datetime: 06/08/2016 15:21 Antibiotics: Ampicillin IV 2 Gm (Deny Mac RN) Antiemetics/Antacids: Bicitra 15 ml PO (Deny Mac RN) Patient Care Comments: Pt signed consent for C/S (Deny Mac RN) Communication Comments: Pt transported to OR via bed accompanied by MEDIA THEORIST AND AUTHOR OF, sales representative cash registers, and RN (Deny Bubba, RN) Datetime: 06/08/2016 15:19 Patient Care Comments: OLGA hose, SCDs Applied, Pt shaved and prepped. Family denies to accompany pt to C/S. (Deny Rajputeet, RN) Datetime: 06/08/2016 15:18 Communication Comments: Dr Leyv Called C/S for face presentation not compatable for vaginal delivery. (Deny Gofleet, RN) Datetime: 06/08/2016 15:16 NBP Sys/Denise/Mean (mmHg): 120 (QS system process) : 68 (QS system process) : 88 (QS system process) Pulse: 118 (QS system process) Datetime: 06/08/2016 15:15 Dilatation (cm): 10.0 (Deny Mac RN) Effacement (%): 100 (Deny Mac RN) Station: -2 (Deny Mac RN) Exam by: Dr Levy (Deny Mac RN) Datetime: 06/08/2016 15:11 Actions for Decelerations: Pitocin Off; IV Bolus; Sterile Vaginal Exam; Provider Reviewed Strip; Provider Notified (Deny Mac RN) Communication Comments: Dr Levy at bedside (Deny Mac RN) Datetime: 06/08/2016 15:10 Patient Position/Activity: Left Lateral (Deny Bubba, RN) Datetime: 06/08/2016 15:01 NBP Sys/Denise/Mean (mmHg): 106 (QS system process) : 59 (QS system process) : 77 (QS system process) Pulse: 118 (QS system process) Datetime: 06/08/2016 14:56 Pitocin (milliunit): Pitocin Started (milliunits) @ 2 (Deny Bubba, RN) Datetime: 06/08/2016 14:45 NBP Sys/Denise/Mean (mmHg): 110 (QS system process) : 59 (QS system process) : 79 (QS system process) Pulse: 93 (QS system process) Datetime: 06/08/2016 14:41 Temperature (F): 97.9 (Deny Bubba, RN) Temperature (C): 36.6 (QS system process) Datetime: 06/08/2016 14:39 Pulse: 119 (QS system process) SpO2 (%): 97 (QS system process) Datetime: 06/08/2016 14:37 Dilatation (cm): 9.0 (Deny Mac, RN) Effacement (%): 100 (Deny Mac, RN) Station: -2 (Deny Goodet, RN) Exam by: Chen Cortes CNM (Deny Mac, RN) Membrane Status: Ruptured (Deny Mac, RN) Membranes Rupture Method: Artificial (Deny Mac, RN) Amniotic Fluid Color: Light Meconium (Deny Mac, RN) Amniotic Fluid Amount: Large (Deny Mac, RN) Amniotic Fluid Odor: Normal (Deny Mac, RN) Medication Comments: PCN [id number] units IVPB (Deny Bubba, ) Datetime: 06/08/2016 14:31 NBP Sys/Denise/Mean (mmHg): 101 (QS system process) : 63 (QS system process) : 77 (QS system process) Pulse: 90 (QS system process) Datetime: 06/08/2016 14:17 NBP Sys/Denise/Mean (mmHg): 110 (QS system process) : 56 (QS system process) : 76 (QS system process) Pulse: 129 (QS system process) Datetime: 06/08/2016 14:01 NBP Sys/Denise/Mean (mmHg): 114 (QS system process) : 58 (QS system process) : 77 (QS system process) Pulse: 110 (QS system process) Datetime: 06/08/2016 14:00 Monitor Mode: External; Palpation (Deny Mac RN) Frequency (min): 5-5.5 (Deny Mac RN) Quality: Mild/Moderate (Deny Bubba, RN) Duration (sec): 80-100 (Deny Rajputeet, RN) Duration Criteria: Less than Two 120 Second Contractions (Deny Mac RN) Pattern: Normal: <= 5 Contractions in 10 Minutes (Deny Mac RN) Resting Tone (Palpate): Relaxed (Deny Mac, RN) Monitor Mode: External US (Deny Mac RN) FHR Baseline Rate : 120 (Deny Mac RN) Variability: Moderate 6-25 bpm (Deny Goodet, RN) Accelerations: 15X15 (Deny Goodet, RN) Decelerations: None (Deny Mac RN) Pain Scale: 2 (Deny Mac RN) Pain Coping: Sleeping (Deny Mac RN) Communication: RN at Bedside; RN Reviewed Strip (Deny Mac RN) Datetime: 06/08/2016 13:46 NBP Sys/Denise/Mean (mmHg): 107 (QS system process) : 58 (QS system process) : 77 (QS system process) Pulse: 125 (QS system process) Datetime: 06/08/2016 13:45 Monitor Mode: External; Palpation (Deny Rajputeet, RN) Frequency (min): 3-5 (Deny Bubba, RN) Quality: Mild/Moderate (Deny Bubba, RN) Duration (sec): 70-90 (Deny Bubba, RN) Duration Criteria: Less than Two 120 Second Contractions (Deny Bubba, RN) Pattern: Normal: <= 5 Contractions in 10 Minutes (Deny Bubba, RN) Resting Tone (Palpate): Relaxed (Deny Bubba, RN) Monitor Mode: External US (Deny Goodet, RN) FHR Baseline Rate : 120 (Deny Bubba, RN) Variability: Moderate 6-25 bpm (Deny Bubba, RN) Accelerations: None (Deny Bubba, RN) Decelerations: None (Deny Bubba, RN) Communication: RN at Bedside; RN Reviewed Strip (Deny Bubba, RN) Datetime: 06/08/2016 13:41 Patient Care Comments: juice given (Deny Bubba, RN) Datetime: 06/08/2016 13:30 NBP Sys/Denise/Mean (mmHg): 105 (QS system process) : 56 (QS system process) : 74 (QS system process) Pulse: 107 (QS system process) Respirations: 16 (Deny Rajputeet, RN) Monitor Mode: External; Palpation (Deny Mac, RN) Frequency (min): 6-7 (Deny Bubba, RN) Quality: Mild/Moderate (Deny Bubba, RN) Duration (sec): 80-90 (Deny Bubba, RN) Duration Criteria: Less than Two 120 Second Contractions (Deny Rajputeet, RN) Resting Tone (Palpate): Relaxed (Deny Rajputeet, RN) Monitor Mode: External US (Deny Mac, RN) FHR Baseline Rate : 120 (Deny Rajputeet, RN) Variability: Moderate 6-25 bpm (Deny Bubba, RN) Accelerations: 15X15 (Deny Bubba, RN) Decelerations: None (Deny Bubba, RN) Level of Consciousness: Fully Conscious (Deny Rajputeet, RN) Headache: Denies (Deny Rajputeet, RN) Nausea/Vomiting: Denies (Deny Rajputeet, RN) RUQ Epigastric Pain: Denies (Deny Mac, RN) Communication: RN at Bedside; RN Reviewed Strip (Deny Mac RN) Datetime: 06/08/2016 13:16 NBP Sys/Denise/Mean (mmHg): 106 (QS system process) : 60 (QS system process) : 76 (QS system process) Pulse: 110 (QS system process) Datetime: 06/08/2016 13:15 Temperature (F): 97.3 (Deny Mac RN) Temperature (C): 36.3 (QS system process) Monitor Mode: External; Palpation (Deny Mac RN) Frequency (min): 2-5 (Deny Mac RN) Quality: Mild/Moderate (Deny Mac RN) Duration (sec): 70-90 (Deny Mac RN) Duration Criteria: Less than Two 120 Second Contractions (Deny Mac RN) Pattern: Normal: <= 5 Contractions in 10 Minutes (Deny Mac RN) Resting Tone (Palpate): Relaxed (Deny Mac RN) Monitor Mode: External US (Deny Mac RN) FHR Baseline Rate : 120 (Deny Mac RN) FHR Baseline Changes: No Baseline Change (Deny Mac RN) Variability: Moderate 6-25 bpm (Deny Mac, RIAZ) Accelerations: 15X15 (Deny Mac RN) Decelerations: None (Deny Mac RN) Communication: RN at Bedside; RN Reviewed Strip (Deny Mac RN) Datetime: 06/08/2016 13:00 Monitor Mode: External; Palpation (Deny Mac RN) Monitor Interventions for UA: Elias-Fela Solis Adjusted (Deny Mac RN) Quality: Mild/Moderate (Deny Mac RN) Resting Tone (Palpate): Relaxed (Deny Mac RN) Contraction Comments: UTD; Rn adjusted (Deny Mac RN) Monitor Mode: External US (Deny Mac RN) FHR Baseline Rate : 120 (Deny Mac RN) Variability: Moderate 6-25 bpm (Deny Mac RN) Accelerations: 15X15 (Deny Mac RN) Decelerations: None (Deny Mac RN) Comments: Broken tracing, RN adjusting (Deny Mac RN) Pain Scale: 2 (Deny Mac RN) Pain Presence: Intermittent (Deny Mac RN) Pain Type: Contraction (Deny Mac RN) Pain Location: Abdomen; Back (Deny Mac RN) Pain Relief Measures: Epidural Given; Comfort Measures (Deny Mac RN) Pain Coping: Sleeping; Declines Medication or Epidural (Deny Mac RN) Communication: RN at Bedside; RN Reviewed Strip (Deny Mac RN) Datetime: 06/08/2016 12:46 NBP Sys/Denise/Mean (mmHg): 121 (QS system process) : 59 (QS system process) : 84 (QS system process) Pulse: 95 (QS system process) Datetime: 06/08/2016 12:45 Monitor Mode: External; Palpation (Deny Mac RN) Frequency (min): 5-6 (Deny Mac RN) Quality: Mild/Moderate (Deny Mac, RN) Duration (sec): 70-90 (Deny Mac, RN) Duration Criteria: Less than Two 120 Second Contractions (Deny Mac RN) Pattern: Normal: <= 5 Contractions in 10 Minutes (Deny Mac, RN) Resting Tone (Palpate): Relaxed (Deny Mac, RN) Monitor Mode: External US (Deny Mac RN) FHR Baseline Rate : 120 (Deny Mac, RN) FHR Baseline Changes: No Baseline Change (Deny Mac, RN) Variability: Moderate 6-25 bpm (Deny Rajputeet, RN) Accelerations: 15X15 (Deny Goodet, RN) Decelerations: None (Deny Mac RN) Communication: RN at Bedside; RN Reviewed Strip (Deny Mac RN) Datetime: 06/08/2016 12:32 NBP Sys/Denise/Mean (mmHg): 120 (QS system process) : 55 (QS system process) : 81 (QS system process) Pulse: 116 (QS system process) Datetime: 06/08/2016 12:30 Monitor Mode: External; Palpation (Deny Mac RN) Frequency (min): 3.5-5 (Deny Mac RN) Quality: Mild/Moderate (Deny Mac RN) Duration (sec): 70-80 (Deny Mac RN) Duration Criteria: Less than Two 120 Second Contractions (Deny Mac RN) Pattern: Normal: <= 5 Contractions in 10 Minutes (Deny Mac RN) Resting Tone (Palpate): Relaxed (Deny Mac RN) Monitor Mode: External US (Deny Mac RN) FHR Baseline Rate : 120 (Deny Mac RN) Variability: Moderate 6-25 bpm (Deny Mac RN) Accelerations: 15X15 (Deny Mac RN) Decelerations: None (Deny Mac RN) Communication: RN at Bedside; RN Reviewed Strip (Deny Bubba, RN) Datetime: 06/08/2016 12:17 Pulse: 128 (QS system process) SpO2 (%): 97 (QS system process) Datetime: 06/08/2016 12:16 IV/Blood Work: IV Bag Number @ 3 (Deny Bubba, RN) Patient Care Comments: LR 125ml/hr (Deny Bubba, RN) Datetime: 06/08/2016 12:15 NBP Sys/Denise/Mean (mmHg): 112 (QS system process) : 56 (QS system process) : 79 (QS system process) Pulse: 105 (QS system process) Contraction Comments: UTD; RN adjusting (Deny Mac RN) Monitor Mode: External US (Deny Mac RN) FHR Baseline Rate : 120 (Deny Mac RN) Variability: Moderate 6-25 bpm (Deny Mac RN) Accelerations: None (Deny Mac RN) Decelerations: None (Deny Mac RN) Comments: Broken tracing; RN adjusting (Deny Mac RN) I/O Interventions: Garg Cath Inserted (Deny Mac RN) Patient Care Comments: 14F pt tolerated well, clear yellow urine output (Deny Mac RN) Communication: RN at Bedside; RN Reviewed Strip (Deny Mac RN) Datetime: 06/08/2016 12:14 NBP Sys/Denise/Mean (mmHg): 116 (QS system process) : 59 (QS system process) : 81 (QS system process) Pulse: 103 (QS system process) Datetime: 06/08/2016 12:13 NBP Sys/Denise/Mean (mmHg): 121 (QS system process) : 67 (QS system process) : 87 (QS system process) Pulse: 100 (QS system process) Datetime: 06/08/2016 12:12 NBP Sys/Denise/Mean (mmHg): 120 (QS system process) : 66 (QS system process) : 85 (QS system process) Pulse: 113 (QS system process) Datetime: 06/08/2016 12:11 NBP Sys/Denise/Mean (mmHg): 120 (QS system process) : 61 (QS system process) : 82 (QS system process) Pulse: 111 (QS system process) Datetime: 06/08/2016 12:10 NBP Sys/Denise/Mean (mmHg): 122 (QS system process) : 58 (QS system process) : 84 (QS system process) Pulse: 87 (QS system process) Pain Scale: 3 (Deny Bubba, RN) Pain Presence: Intermittent (Deny Bubba, RN) Pain Type: Contraction (Deny Bubba, RN) Pain Location: Abdomen (Deny Bubba, RN) Anesthesia Level Check: T10- Umbilicus (Deny Bubba, RN) Datetime: 06/08/2016 12:07 NBP Sys/Denise/Mean (mmHg): 152 (QS system process) : 72 (QS system process) : 104 (QS system process) Pulse: 112 (QS system process) Datetime: 06/08/2016 12:06 NBP Sys/Denise/Mean (mmHg): 148 (QS system process) : 81 (QS system process) : 109 (QS system process) Pulse: 91 (QS system process) Datetime: 06/08/2016 12:05 NBP Sys/Denise/Mean (mmHg): 143 (QS system process) : 85 (QS system process) : 109 (QS system process) Pulse: 111 (QS system process) Epidural Procedure: Cath Placed; Loading Dose (Deny Bubba, RN) Datetime: 06/08/2016 12:04 Epidural Procedure: Test Dose (Deny Bubba, RN) Datetime: 06/08/2016 12:02 Pulse: 101 (QS system process) SpO2 (%): 99 (QS system process) Datetime: 06/08/2016 12:00 Monitor Mode: External; Palpation (Deny Mac RN) Frequency (min): 4-6 (Deny Mac RN) Quality: Moderate (Deny Mac RN) Duration (sec): 70-90 (Deny Mac, RN) Duration Criteria: Less than Two 120 Second Contractions (Deny Mac RN) Pattern: Normal: <= 5 Contractions in 10 Minutes (Deny Mac RN) Resting Tone (Palpate): Relaxed (Deny Mac, RN) Monitor Mode: External US (Deny Mac, RN) FHR Baseline Rate : 120 (Deny Mac, RN) Variability: Moderate 6-25 bpm (Deny Rajputeet, RN) Accelerations: 15X15 (Deny Rajputeet, RN) Decelerations: None (Deny Mac, RN) Comments: Broken tracing, RN adjusting (Deny Mac RN) Communication: RN at Bedside; RN Reviewed Strip (Deny Mac RN) Datetime: 06/08/2016 11:57 Pulse: 112 (QS system process) SpO2 (%): 99 (QS system process) Datetime: 06/08/2016 11:56 Procedure Verify: Correct Patient Identity; Correct Side and Site are Marked; Accurate Procedure Consent Form; Agreement on Procedure to be Done; Correct Patient Position; Relevant Images and Results are Properly Labeled and Displayed; Addressed Need to Administer Antibiotics or Fluids for Irrigation; Safety Precautions Based on Patient History or Medication Use (Deny Mac RN) Anesthesia Plans: Epidural (Deny Mac RN) Epidural Positioning: Sitting (Deny Mac RN) Anesthesia Comments: Dr Bartholomew at bedside for epidural, consent signed (Deny Mac RN) Datetime: 06/08/2016 11:53 NBP Sys/Denise/Mean (mmHg): 173 (QS system process) : 71 (QS system process) : 102 (QS system process) Pulse: 102 (QS system process) Comments: Monitors removed for epidural placement; RN remains at bedside to attempt to obtain fht and assess pt. (Deny Mac RN) Procedure Verify: Correct Patient Identity; Correct Side and Site are Marked; Accurate Procedure Consent Form; Agreement on Procedure to be Done; Correct Patient Position; Relevant Images and Results are Properly Labeled and Displayed; Addressed Need to Administer Antibiotics or Fluids for Irrigation; Safety Precautions Based on Patient History or Medication Use (Deny Mac RN) Anesthesia Plans: Epidural (Deny Mac RN) Epidural Positioning: Sitting (Deny Mac RN) Datetime: 06/08/2016 11:52 Pulse: 124 (QS system process) SpO2 (%): 98 (QS system process) Datetime: 06/08/2016 11:46 Procedure Verify: Correct Patient Identity; Correct Side and Site are Marked; Accurate Procedure Consent Form; Agreement on Procedure to be Done; Relevant Images and Results are Properly Labeled and Displayed; Addressed Need to Administer Antibiotics or Fluids for Irrigation; Safety Precautions Based on Patient History or Medication Use (Deny Mac RN) Anesthesia Plans: Epidural (Deny Mac RN) Communication Comments: Dr Bartholomew called pt requesting epidural (Deny Mac RN) Datetime: 06/08/2016 11:30 Monitor Mode: External; Palpation (Deny Mac RN) Frequency (min): 5-6 (Deny Mac RN) Quality: Mild/Moderate (Deny Mac RN) Duration (sec): 70-90 (Deny Mac RN) Duration Criteria: Less than Two 120 Second Contractions (Deny Mac RN) Pattern: Normal: <= 5 Contractions in 10 Minutes (Deny Mac RN) Resting Tone (Palpate): Relaxed (Deny Mac RN) Monitor Mode: External US (Deny Mac RN) FHR Baseline Rate : 120 (Deny Mac RN) FHR Baseline Changes: No Baseline Change (Deny Mac RN) Variability: Moderate 6-25 bpm (Deny Mac RN) Accelerations: 15X15 (Deny Mac RN) Decelerations: None (Deny Mac RN) Communication: RN at Bedside; RN Reviewed Strip (Deny Mac RN) Datetime: 06/08/2016 11:22 NBP Sys/Denise/Mean (mmHg): 145 (QS system process) : 95 (QS system process) : 115 (QS system process) Pulse: 96 (QS system process) Datetime: 06/08/2016 11:08 Communication Comments: A Emmel CNM states pt may have epidural (Deny Bubba, RN) Datetime: 06/08/2016 11:03 IV/Blood Work: IV Bag Number @ 2 (Deny Bubba, RN) Patient Position/Activity: Left Lateral (Deny Bubba, RN) Datetime: 06/08/2016 11:00 Monitor Mode: External; Palpation (Deny Bubba, RN) Frequency (min): 4-6 (Deny Bubba, RN) Quality: Mild/Moderate (Deny Bubba, RN) Duration (sec): 50-120 (Deny Bubba, RN) Pattern: Normal: <= 5 Contractions in 10 Minutes (Deny Bubba, RN) Resting Tone (Palpate): Relaxed (Deny Bubba, RN) Monitor Mode: External US (Deny Bubba, RN) FHR Baseline Rate : 120 (Deny Bubba, RN) FHR Baseline Changes: No Baseline Change (Deny Bubba, RN) Variability: Moderate 6-25 bpm (Deny Bubba, RN) Accelerations: 15X15 (Deny Bubba, RN) Decelerations: None (Deny Bubba, RN) Communication: RN at Bedside; RN Reviewed Strip (Deny Bubba, RN) Datetime: 06/08/2016 10:52 NBP Sys/Denise/Mean (mmHg): 124 (QS system process) : 64 (QS system process) : 87 (QS system process) Pulse: 91 (QS system process) Datetime: 06/08/2016 10:46 Antibiotics: Start Antibiotics; Penicillin IV (Units) @ [id number] (Deny Bubba, RN) Medication Comments: IVPB (Deny Bubba, RN) Datetime: 06/08/2016 10:35 IV/Blood Work: IV Bolus Started (Deny Gofleet, RN) Patient Care Comments: LR (Deny Bubba, RN) Datetime: 06/08/2016 10:33 IV/Blood Work: IV Started (Deny Bubba, RN) Datetime: 06/08/2016 10:30 Monitor Mode: External; Palpation (Deny Bubba, RN) Frequency (min): 4-5 (Deny Bubba, RN) Quality: Mild/Moderate (Deny Bubba, RN) Duration (sec): 80-100 (Deny Bubba, RN) Duration Criteria: Less than Two 120 Second Contractions (Deny Bubba, RN) Pattern: Normal: <= 5 Contractions in 10 Minutes (Deny Bubba, RN) Resting Tone (Palpate): Relaxed (Deny Bubba, RN) Monitor Mode: External US (Deny Bubba, RN) FHR Baseline Rate : 120 (Deny Bubba, RN) Variability: Moderate 6-25 bpm (Deny Bubba, RN) Accelerations: 15X15 (Deny Bubba, RN) Decelerations: None (Deny Bubba, RN) Communication: RN at Bedside; RN Reviewed Strip (Deny Bubba, RN) Datetime: 06/08/2016 10:28 Procedures: Consents Signed (Deny Mac, RN) Datetime: 06/08/2016 10:25 Exam by: A Emmel CNM (Deny Mac RN) Vaginal Exam Comments: Anterior Lip (Deny Mac RN) Preparation for Delivery: Setup for Delivery (Deny Mac RN) Communication Comments: A Emmel CNM at bedside to assess pt (Deny Gofleet, RIAZ) Datetime: 06/08/2016 10:22 NBP Sys/Denise/Mean (mmHg): 120 (QS system process) : 59 (QS system process) : 82 (QS system process) Pulse: 102 (QS system process) Datetime: 06/08/2016 10:09 Pain Scale: 5 (Deny Mac RN) Pain Presence: Intermittent (Deny Mac RN) Pain Type: Contraction (Deny Mac RN) Pain Location: Abdomen; Back (Deny Mac RN) Pain Relief Measures: Comfort Measures (Deny Mac RN) Pain Coping: Breathing Through Contractions (Deny Mac RN) Vaginal Bleeding: None (Deny Mac RN) Level of Consciousness: Fully Conscious (Deny Mac RN) DTR's/Clonus: DTRs 2+; No Clonus (Deny Mac RN) Headache: Denies (Deny Mac RN) Breath Sounds, Left: Clear and Equal (Deny Mac RN) Breath Sounds, Right: Clear and Equal (Deny Mac RN) Nausea/Vomiting: Denies (Deny Mac RN) RUQ Epigastric Pain: Denies (Deny Mac RN) Comfort Measures: Breathing/Relaxation (Deny Mac RN) I/O Interventions: Clear Liquids Given; Up to BR (Deny Mac RN) Instructional Method: Demo; Verbal; Patient Instructed; Family/Support Person Instructed; Verbalized Understanding (Deny Mac RN) Plan of Care: Plan of Care Discussed; Vaginal Delivery; Labor (Deny Mac RN) Unit Routine: [place] to Room; Call Reich; Bed; Visiting Policy; Waiting Areas; Security; Phone/Cell Phone Use; Photography; Unit Personnel; Handwashing; Flu/Illness Precautions; Monitoring; IV Pumps; Safety/Fall Risk Prevention; Diet/Nutrition Services; Bathroom Privileges; Routine Time Outs; Medications (Deny Mac RN) Labor/Induction: Labor Stages; Augmentation (Deny Mac RN) Pain Management: Epidural; PRN Medications; Pain Scale/Goals; Comfort Measures (Deny Mac RN) Medications: Antibiotics (Deny Mac RN) Related: Common Discomforts of ; Maternal Physical Changes; Maternal Emotional Changes; Nutrition; Hydration; Activity and Rest (Deny Mac RN)
[2016-06-08] MEDS: HYDROMORPHONE HCL INJ/PF 2 MG/ML AMPULE IV PRN ×2 (19:32→22:58)
[2016-06-08] MEDS: ALBUTEROL SULFATE 0.083% NEB 2.5 MG/3 ML AMPUL NEB PRN (19:34)
[2016-06-08] MEDS: KETOROLAC TROMETHAMINE INJ/PF 30 MG/1 ML SDV IV SCH (23:12)
[2016-06-08] MEDS: DOCUSATE SODIUM 100 MG CAPSULE PO SCH (23:12)
[2016-06-09] MEDS: KETOROLAC TROMETHAMINE INJ/PF 30 MG/1 ML SDV IV SCH ×2 (02:02→10:00)
[2016-06-09] MEDS: HYDROMORPHONE HCL INJ/PF 2 MG/ML AMPULE IV PRN (04:58)
--- NOTE | 2016-06-09 06:02 | L&D General Admission ---
General Admit Datetime Report Generated by CPN: 06/09/2016 06:00 INFORMATION Patient Age: 21 (06/07/2016 10:51:QS system process) EDC: 06/02/2016 00:00 (06/07/2016 10:54:Krystle Parr RN) : 1 (06/07/2016 10:54:Krystle Parr RN) Para: 0 (06/07/2016 13:28:Krystle Parr RN) Baby, Number in Womb: 1 (06/07/2016 13:28:Krystle Parr RN) CARE Primary Cap And Hat Production Supervisor: [facility] (06/07/2016 10:54:Krystle Parr RN) Cap And Hat Production Supervisor Other: [facility] (06/07/2016 10:54:Krystle Prar RN) Adequate Care: Yes (06/07/2016 10:54:Krystle Parr RN) Height (in): 61 (06/08/2016 18:38:QS system process) ALLERGIES Medication Allergy: No (06/07/2016 10:54:Krystle Parr RN) Medication Allergies: No Known Allergies (06/08/2016) (06/08/2016 10:13:QS system process) Latex Allergy: No Latex Allergies (06/07/2016 10:54:Krystle Parr RN) Food Allergies: (06/07/2016 10:54:Krystle Parr RN) COMMUNICATION Primary Language: Icelandic (06/07/2016 10:54:Krystle Parr RN) Communication Barrier(s): None (06/07/2016 10:54:Deny Mac RN) DEMOGRAPHICS Address: [address] [place] [id number] (06/08/2016 10:06:QS system process) Zipcode: [id number] (06/07/2016 10:51:QS system process) Home (06/07/2016 10:51:QS system process) SSN: [id number] (06/07/2016 10:51:QS system process) Next of Kin Name: GARDENIA MIMS (06/07/2016 10:51:QS system process) Next of Kin (06/07/2016 10:51:QS system process) Next of Kin Relationship: OR (06/07/2016 10:51:QS system process) Date of : 1995 (06/07/2016 10:51:QS system process) Marital Status: Single (06/07/2016 10:51:QS system process) Sex: Female (06/07/2016 10:51:QS system process) Race: (06/07/2016 10:51:QS system process) Ethnicity: Non- or (06/07/2016 10:51:QS system process) Confucianism: None (06/07/2016 10:51:QS system process) DRUG AND ALCOHOL USE Alcohol: No (06/07/2016 10:54:Krystle Parr RN) Cigarettes: Current Everyday Smoker. [id number] (06/07/2016 10:54:Krystle Parr RN) Average Cigarettes Smoked: 5 - 10 per day (06/07/2016 10:54:Krystle Parr RN) Advised to Stop Smoking: Yes (06/07/2016 10:54:Krystle Parr RN) Marijuana: No (06/07/2016 10:54:Krystle Parr RN) Cocaine: No (06/07/2016 10:54:Krystle Parr RN) Other Illicit Drugs: No (06/07/2016 10:54:Krystle Parr RN) VACCINE HISTORY Influenza Vaccine: No (06/07/2016 10:54:Krystle Parr RN) Tdap Vaccine: Yes (06/07/2016 10:54:Krystle Parr RN) Feeding Preference: Breast (06/07/2016 10:54:Krystle Parr RN) Benefit of Breast Feed Discussed: Yes (06/07/2016 10:54:Krystle Parr RN) Circumcision: N/A (06/07/2016 10:54:Krystle Parr RN) Classes Attended: No (06/07/2016 10:54:Krystle Parr RN) Tubal Authorization Signed: N/A (06/07/2016 10:54:Krystle Parr RN) Consent: N/A (06/07/2016 10:54:Krystle Parr RN) Consent Signed: N/A (06/07/2016 10:54:Krystle Parr RN) Pain Management Plans: Epidural (06/07/2016 10:54:Krystle Parr RN) Support Person: Gardenia Mims (06/07/2016 10:54:Krystle Parr RN) Support Person Relationship: Significant Other (06/07/2016 10:54:Krystle Parr RN) Cultural/Spritual Practice: No (06/07/2016 10:54:Deny Mac RN) Spir/Cult Dietary Needs: No (06/07/2016 10:54:Deny Mac RN) LIVING SITUATION/DISCHARGE PLAN Living Arrangements: House (06/07/2016 10:54:Krystle Parr RN) Adequate Access to:: Electric; Heat; Refrigeration; Plumbing/Running water; Phone; Transportation (06/07/2016 10:54:Krystle Parr RN) WIC Program: Yes (06/07/2016 10:54:Krystle Parr RN) Discharge Director Equipment Person: Gardenia Mims (06/07/2016 10:54:Krystle Parr RN) Person to Help after Discharge: Gardenia Mims (06/07/2016 10:54:Krystle Parr RN) Currently Using Commun Resources: Yes (06/07/2016 10:54:Krystle Parr RN) Specify Current Resource Used: Medicaid (06/07/2016 10:54:Krystle Parr RN) Car Seat for Discharge: Yes (06/07/2016 10:54:Krystle Parr RN) Adoption Requested: No (06/07/2016 10:54:Krystle Parr RN) Pt Contact w/infant Post : N/A (06/07/2016 10:54:Krystle Parr RN) LABS Blood Type: A Negative (06/07/2016 10:54:Krystle Parr RN) Antibody Screen: neg (06/07/2016 10:54:Krystle Parr RN) Rho(G) this : Yes (06/07/2016 10:54:Deny Mac RN) Date Rho(G) Given: 03/16/16 (06/07/2016 10:54:Deny Mac RN) Hemoglobin: 12.0-15.5 g/dL (06/09/2016 06:01:QS system process) Hematocrit: 37.1 (06/08/2016 10:50:QS system process) MCV: 85 (06/08/2016 10:50:QS system process) Group Beta Strep: positive (06/07/2016 10:54:Krystle Parr RN) Gonorrhea: Negative (06/07/2016 10:54:Krystle Parr RN) Chlamydia: Negative (06/07/2016 10:54:Krystle Parr RN) RPR/VDRL: Nonreactive (06/07/2016 10:54:Krystle Parr RN) HIV Exposure Test: Negative (06/07/2016 10:54:Krystle Parr RN) Hepatitis B: Negative (06/07/2016 10:54:Krystle Parr RN) Rubella: Immune (06/07/2016 10:54:Krystle Parr RN)
--- NOTE | 2016-06-09 06:02 | L&D Current Admission ---
Current Admit Datetime Report Generated by CPN: 06/09/2016 06:00 ADMISSION INFORMATION Current Admit Date/Time: 06/08/2016 10:30 (06/08/2016 10:30:Deny Mac RN) Reason for Admission: Onset of Labor (06/08/2016 10:30:Deny Mac RN) Chief Complaint: Contractions (06/08/2016 10:09:Deny Mac RN) EGA per Dates: 40.6 (06/08/2016 10:30:QS system process) Method of Arrival: Wheelchair (06/08/2016 10:30:Deny Mac RN) Admitted From: Home (06/08/2016 10:30:Deny Mac RN) Reason for Induction: Not Applicable (06/08/2016 10:30:Deny Mac RN) Records Available: Yes (06/08/2016 10:30:Deny Mac RN) General Admission Information: Reviewed; Updated; Confirmed (06/08/2016 10:30:Deny Mac RN) General Admission Reviewed By: Chen Cortes CNM (06/08/2016 10:30:Deny Mac RN) BELONGINGS/ADVANCED DIRECTIVES Disposition of Belongings: Kept with Patient (06/08/2016 10:30:Deny Mac RN) Comments Regarding Disposition: See belongings form filled out by patient (06/08/2016 10:30:Deny Mac RN) Advance Direct for Healthcare: No, and Wants No Information (06/08/2016 10:30:Deny Mac RN) Durable Power of Lathe Setup Operator: No (06/08/2016 10:30:Deny Mac RN) Living Will: No (06/08/2016 10:30:Deny Mac RN) Organ Donor: Yes (06/08/2016 10:30:Deny Mac RN) Pt Rights Information Given: Yes (06/08/2016 10:30:Deny Mac RN) Pt Understands Pt Rights: Yes (06/08/2016 10:30:Deny Mac RN) DOMESTIC VIOLANCE SCREENING Dom Viol Threatened/Hurt: No (06/08/2016 10:30:Deny Mac RN) Hx of Abuse/Neglect past 2yrs: No (06/08/2016 10:30:Deny Mac RN) Feel Unsafe Going Home: No (06/08/2016 10:30:Deny Mac RN) Addt'l Observ Indicating Abuse: No (06/08/2016 10:30:Deny Mac RN) Reason Unable to Complete Screen: N/A, Screen Completed (06/08/2016 10:30:Deny Mac RN) Considered Personal Harm/Suicide: No (06/08/2016 10:30:Deny Mac RN) NUTRITIONAL/FUNCTIONAL SCREENING Problem with Appetite >5 Days: No (06/08/2016 10:30:Deny Mac RN) Chew/Swallow Difficulties: No (06/08/2016 10:30:Deny Mac RN) Inappropriate Wt Gain/Loss: No (06/08/2016 10:30:Deny Mac RN) Presence Skin Breakdown/Ulcer: No (06/08/2016 10:30:Deny Mac RN) Special Diet: No (06/08/2016 10:30:Deny Mac RN) Pt Requests Envelope Sealing Machine Operator Visit: No (06/08/2016 10:30:Deny Mac RN) Hx of Any of the Following?: N/A (06/08/2016 10:30:Deny Mac RN) New Diagnosis of: N/A (06/08/2016 10:30:Deny Mac RN) Requires Assist w/Ambulation: No (06/08/2016 10:30:Deny aMc RN) Uses Assist Device to Ambulate: No (06/08/2016 10:30:Deny Mac RN) Pt Requires Help w/ADL's: No (06/08/2016 10:30:Deny Mac RN)
--- NOTE | 2016-06-09 06:16 | L&D Flow Sheet ---
LD Flowsheet Datetime Report Generated by CPN: 06/09/2016 06:15 Datetime: 06/08/2016 18:22 Pulse: 105 (QS system process) SpO2 (%): 94 (QS system process) Datetime: 06/08/2016 18:20 Pulse: 110 (QS system process) SpO2 (%): 95 (QS system process) Datetime: 06/08/2016 18:17 Pulse: 106 (QS system process) SpO2 (%): 94 (QS system process) Datetime: 06/08/2016 18:15 Pulse: 106 (QS system process) SpO2 (%): 95 (QS system process)
--- NOTE | 2016-06-09 06:16 | L&D Care Plan ---
LD CARE PLANS Datetime Report Generated by CPN: 06/09/2016 06:15 Datetime: 06/08/2016 10:35 Pain State: Risk For (Marjorie Peoples RN) Related To: Labor and Delivery Process; Treatment and Procedures; Post (Marjorie Peoples RN) Goal(s): Patients Pain will be Assessed and Managed; Patient will Verbalize Adequate Relief of Pain or the Ability to [place] with Current Pain (Marjorie Peoples RN) Interventions: Assess Pain Severity on Scale of 0 (None) to 5 (Severe); Assess Type, Location and Intensity of Pain Each Time Client Reports Discomfort and Notify Provider if Unusal Pain Develops; Encourage Proper Breathing and Relaxation Techniques; Offer Alternatives Such as Repositioning, Calm Environment, Massages, Diversional Activities, Ice Pack, Splinting, and Ambulation; Administer Analgesics as Ordered; Assist with Epidural Placement as Appropriate; Evaluate Therapeutic Effectiveness of Medication and Treatments (Marjorie Peoples RN) Outcome: Patient will Report Absence or Relief of Pain Consistent with Established Pain Goal (Marjorie Peoples RN) Status: Ongoing (Marjorie Peoples RN) Outcome: Patient will have a Decrease in Signs and Symptoms of Discomfort (Marjorie Peoples RN) Status: Ongoing (Marjorie Peoples RN) Outcome: Pain will be Controlled During Procedures (Marjorie Peoples RN) Status: Ongoing (Marjorie Peoples RN) Anxiety State: Risk For (Marjorie Peoples RN) Related To: Labor and Delivery Process; Situational Crisis; Significant Life Event (Marjorie Peoples RN) Goal(s): Patient will have Decreased Anxiety and be able to Function at Acceptable Levels (Marjorie Peoples RN) Interventions: Assess Verbal and Nonverbal Behavioral Indicators of Anxiety; Assist Patient to Identify and Verbalize Symptoms of Anxiety; Identify and Demonstrate Techniques to Control Anxiety; Assist Patient with Coping Mechanisms to Manage Anxiety; Provide Theraputic Touch for the Patient; Explain to Patient, Using a Calm Reassuring Approach and Nonmedical Terms, All Activities, Procedures, and Concerns; Instruct Patient and Family about Post Discharge Care, Limitations, Symptoms to Report and Resources Available (Marjorie Peoples RN) Outcome: Patient will Identify, Verbalize and Demonstrate Techniques to Control Anxiety (Marjorie Peoples RN) Status: Ongoing (Marjorie Peoples RN) Outcome: Patient's Posture, Facial Expressions, Gestures and Activity Level will Reflect Decreased Anxiety (Marjorie Peoples RN) Status: Ongoing (Marjorie Peoples RN) Outcome: Patient will Verbalize a Sense of Control and/or Acceptance of the Situation (Marjorie Peoples RN) Status: Ongoing (Marjorie Peoples RN) Outcome: Patient will Identify and Utilize Support Person (Marjorie Peoples RN) Status: Ongoing (Marjorie Peoples RN) Knowledge Deficit State: Risk For (Marjorie Peoples RN) Related To: Labor and Delivery Process; Treatment and Procedures; Community Resources and Available Support Mechanisms (Marjorie Peoples RN) Goal(s): Patient will Accurately Verbalize Understanding of Plan of Care and Treatment; Patient and Family will Accurately Verbalize Understanding of the Disease Process (Marjorie Peoples RN) Interventions: Assess Motivation and Willingness of Patient/Family to Learn; Assess Preferred Learning Mode: One to One Instruction, Reading, Videos, Group Discussion or Demonstration; Assess Barriers to Learning: Pain, Emotional State, Language Barrier, Cognitive Impairment, Visual or Hearing Deficits; Assess Patient and Family Knowledge of Disease Process, Medications and Treatment; Discuss Therapy and/or Treatment Options, Describe Rationale Behind Management, Therapy and Treatment Recommendations; Instruct Patient and Family on Signs and Symptoms to Report; Instruct Patient and Family on Medication Effects and Side Effects; Provide Appropriate and Timely Education Using Multiple Techniques; Provide Patient and Family with Support Group Information and Resources; Give Clear and Thorough Explanations and Demonstrations (Marjorie Peoples RN) Outcome: Patient and Family will Verbalize Understanding of Condition, Treatment and Signs and Symptoms to Report (Marjorie Peoples RN) Status: Ongoing (Marjorie Peoples RN) Outcome: Patient will Identify Perceived Learning Needs and Express Motivation to Learn (Marjorie Peoples RN) Status: Ongoing (Marjorie Peoples RN) Outcome: Patient will Verbalize Understanding of Desired Content, and/or Performs Desired Skill Prior to Discharge (Marjorie Peoples RN) Status: Ongoing (Marjorie Peoples RN) Infection State: Risk For (Marjorie Peoples RN) Related To: Invasive Procedures (Marjorie Peoples RN) Goal(s): The Patient will be Free of Infection, Vital Signs Stable and Lab Work within Normal Parameters (Marjorie Peoples, RN) Interventions: Instruct and Reinforce Proper Handwashing, Hygiene, and Care Techniques to Patient and Family; Monitor Vital Signs; Monitor Patient for the Following Signs of Infection: Fever, Abdominal Tenderness, Unusual Discharge; Monitor Aminiotic Fluid, Urine and Lochia for Color and Odor; Observe Wounds, Incisions and Invasive Line Sites for Redness, Drainage and Edema; Assess IV Sites per Hospital Policy; Monitor Lab and Test Results and Notify Provider of Abnormal Findings; Assess Nutritional Status and Promote Good Nutrition (Marjorie Peoples RN) Outcome: Patient will Remain Free of Infection (Marjorie Peoples RN) Status: Ongoing (Marjorie Peoples RN) Outcome: Infection will be Recognized Early to Allow for Prompt Treatment (Marjorie Peoples RN) Status: Ongoing (Marjorie Peoples, RN) Outcome: Patient will have Vital Signs Within Expected Range (Marjorie Peoples, RN) Status: Ongoing (Marjorie Peoples, RN) Fluid Volume State: Risk For (Marjorie Peoples RN) Related To: Gestational Hypertension; Disease Process (Marjorie Peoples RN) Goal(s): Patient will Achieve and Maintain a Balanced Fluid Volume Status; Hemodynamically Stable (Marjorie Peoples RN) Interventions: Monitor Vital Signs; Auscultate Breath Sounds; Monitor Patient for Skin Turgor, Mucous Membranes, Dry Skin, Weakness, Headaches and Confusion; Provide Oral Fluids as Ordered; Initiate and Maintain Intravenous Fluids as Ordered; Monitor Intake and Output as Indicated Per Patient Status; Accurately Measure Blood Loss; Monitor Lab and Test Results as Obtained and Notify Provider of Abnormal Findings; Monitor Patient's Weight (Marjorie Peoples RN) Outcome: Patient will have Clear Lung Sounds (Marjorie Peoples RN) Status: Ongoing (Marjorie Peoples RN) Outcome: Patient will have Vital Signs within Expected Range (Marjorie Peoples RN) Status: Ongoing (Marjorie Peoples RN) Outcome: Urine Output will be within Expected Range (Marjorie Peoples RN) Status: Ongoing (Marjorie Peoples RN) Outcome: Patient will have Minimal Generalized or Upper Extremity Edema (Marjorie Peoples RN) Status: Ongoing (Marjorie Peoples RN) Injury State: Not Applicable (Marjorie Peoples RN) Impaired Skin Integrity State: Risk For (Marjorie Peoples RN) Related To: Vaginal Delivery; Invasive Procedures (Marjorie Peoples RN) Goal(s): Patient will Maintain Optimal Skin Integrity, Free of Breakdown, Injury or Infection (Marjorie Peoples RN) Interventions: Complete Screening for Pressure Ulcer Risk and Initiate Protocol per Hospital Policy; Monitor Site of Skin Impairment for Color Changes, Redness, Swelling, Warmth, Pain or Other Signs of Infection; Encourage and Assist with Position Changes; Monitor Patient's Mobility Status; Provide Adequate Nutrition and Fluids; Teach Patient Appropriate Hygienic Care; Teach Patient/Family Skin Care Management (Marjorie Peoples RN) Outcome: Patient will not have Evidence of Injury Such as Skin Breakdown, Scrapes, Cuts, or Bruising (Marjorie Peoples RN) Status: Ongoing (Marjorie Peoples RN) Outcome: Patient will Report Any Altered Sensation or Pain at Site of Skin Impairment (Marjorie Peoples, RN) Status: Ongoing (Marjorie Peoples RN) Outcome: Patients Incisions and Wounds will be without Signs or Symptoms of Infection (Marjorie Peoples, RN) Status: Ongoing (Marjorie Peoples, RN) Outcome: Patient will Demonstrate Understanding of Plan to Heal Skin and Prevent Reinjury and Verbalize Risk Factors (Marjorie Peoples RN) Status: Ongoing (Marjorie Peoples RN) Parenting Impaired State: Not Applicable (Marjorie Peoples RN) Nutrition State: Not Applicable (Marjorie Peoples RN) Interventions: Nutritional Screening and Assessment per Hospital Policy; Consult Mds Rn for Further Assessment and Recommendations Regarding Food Preferences and Nutritional Support; Allow Patient to Plan and Order Diet when Possible; Monitor Laboratory Values That Indicate Nutritional Well-being; Consult Aoc Director Combat Operations Officer for Nutritional Support Regarding Requirements; Document Actual Weight Initially and Weekly (Do Not Estimate); Encourage Patient Participation in Maintaining a Food Log as Indicated; Educate Patient on the Importance of Maintaining an Adequate Caloric Intake (Marjorie Peoples RN) Outcome: Patient will Receive Adequate Calories and Fluid Volume to Meet Metabolic Needs (Marjorie Peoples RN) Status: Ongoing (Marjorie Peoples RN) Outcome: Patient will Select Foods or Meals that Support Adequate Nutrition (Marjorie Peoples RN) Status: Ongoing (Marjorie Peoples RN) Grieving State: Not Applicable (Marjorie Peoples RN) Additional Care Plan State: Not Applicable (Marjorie Peoples RN)
[2016-06-09 07:07] LABS: HEMATOCRIT 30.4 % (36.0-47.0); HEMOGLOBIN 10.4 g/dL (12.0-15.5); HGB HCT DIFFERENCE 0.8; MEAN CORPUSCULAR HEMOGLOBIN 28.8 pg (27.0-33.4); MEAN CORPUSCULAR HGB CONC 34.1 g/dL (32.0-36.0); MEAN CORPUSCULAR VOLUME 84 fl (80-97); RED BLOOD COUNT 3.61 10^6/uL (3.72-5.28); RED CELL DISTRIBUTION WIDTH 13.3 % (11.5-14.0)
[2016-06-09] MEDS: OXYCODONE-ACETAMINOPHEN 5-325 MG TABLET PO PRN ×3 (08:32→21:14)
[2016-06-09] MEDS: ALBUTEROL SULFATE 0.083% NEB 2.5 MG/3 ML AMPUL NEB PRN (09:02)
--- NOTE | 2016-06-09 09:12 | PDOC PROGRESS REPORT ---
Subjective-OB Subjective: Post Delivery Day: 1 21 year old. Denies any needs at this time, states she is passing gas, tolerating diet, voiding without difficulty, lochia is stable, pain moderately well controlled. Physical Exam (OB) Vital Signs: Temp Pulse Resp BP Pulse Ox 97.6 F 81 18 113/62 99 06/09/16 07:59 06/09/16 07:59 06/09/16 07:59 06/09/16 07:59 06/09/16 07:59 Intake & Output 06/08/16 06/09/16 06/10/16 06:59 06:59 06:59 Intake Total 2700 Output Total 1600 100 Balance 1100 -100 Weight 73.1 kg - PIH/Pre-Eclampsia Clonus: Negative Headache: Absent Epigastric Pain: No Visual Changes: No - Incision: Open Closure Type: Surgical Glue - Lochia Lochia Amount: Scant < 10 ml Lochia Color: Rubra/Red - Abdomen Description: Tender, Soft, Flat Hernia Present: No Fundal Description: Firm, Midline Fundal Height: u/u - u/2 Objective-Diagnostic Laboratory: 06/09/16 06:50 06/08/16 06/08/16 06/08/16 10:50 10:50 12:51 WBC 29.9 H RBC 4.36 Hgb 12.2 Hct 37.1 MCV 85 MCH 28.0 MCHC 32.9 RDW 13.5 Plt Count 302 Seg Neutrophils % Not Reportable Lymphocytes % Not Reportable Monocytes % Not Reportable Eosinophils % Not Reportable Basophils % Not Reportable Absolute Neutrophils Not Reportable Absolute Lymphocytes Not Reportable Absolute Monocytes Not Reportable Absolute Eosinophils Not Reportable Absolute Basophils Not Reportable Urine Color YELLOW Urine Appearance SLIGHTLY-CLOUDY Urine pH 5.0 Ur Specific [place] 1.027 Urine Protein 30 H Urine Glucose (UA) NEGATIVE Urine Ketones 80 H Urine Blood NEGATIVE Urine Nitrite NEGATIVE Ur Leukocyte Esterase TRACE H Blood Type A NEGATIVE Antibody Screen NEGATIVE 06/09/16 06:50 WBC 19.0 H RBC 3.61 L Hgb 10.4 L Hct 30.4 L MCV 84 MCH 28.8 MCHC 34.1 RDW 13.3 Plt Count 217 Seg Neutrophils % Lymphocytes % Monocytes % Eosinophils % Basophils % Absolute Neutrophils Absolute Lymphocytes Absolute Monocytes Absolute Eosinophils Absolute Basophils Urine Color Urine Appearance Urine pH Ur Specific [place] Urine Protein Urine Glucose (UA) Urine Ketones Urine Blood Urine Nitrite Ur Leukocyte Esterase Blood Type Antibody Screen Assessment and Plan(PN) - Assessment and Plan (1) Reactive airway disease with wheezing with acute exacerbation Is this a current diagnosis for this admission?: YesPlan: respiratory therapy (2) Vaginal delivery Is this a current diagnosis for this admission?: YesPlan: routine pp care anticipate d/c home - Time Spent with Patient Time with patient: Less than 15 minutes Critical Time spent with patient: Less than 15 minutes Medications reviewed and adjusted accordingly: Yes - Disposition Anticipated Discharge: Home Within: within 24 hours
[2016-06-09] MEDS ORDERED: BUDESONIDE NEB 0.5 MG/2 ML AMPUL NEB PRN (09:41)
[2016-06-09] MEDS: DOCUSATE SODIUM 100 MG CAPSULE PO SCH ×2 (10:00→17:43)
[2016-06-09] MEDS: PRENATAL VITAMIN W-O CA NO5/FE FUMARATE/FA CAPSULE PO SCH (10:00)
[2016-06-09] MEDS: SIMETHICONE 80 MG TAB.CHEW PO PRN ×2 (10:06→17:43)
[2016-06-09] MEDS: ALBUTEROL SULFATE 0.083% NEB 2.5 MG/3 ML AMPUL NEB SCH ×3 (12:06→20:28)
[2016-06-09] MEDS: BUDESONIDE NEB 0.5 MG/2 ML AMPUL NEB SCH (20:28)
[2016-06-09] MEDS: IBUPROFEN 800 MG TABLET PO SCH (21:13)
[2016-06-10] MEDS: IBUPROFEN 800 MG TABLET PO SCH ×2 (05:46→13:59)
[2016-06-10] MEDS: BUDESONIDE NEB 0.5 MG/2 ML AMPUL NEB SCH (08:24)
[2016-06-10] MEDS: ALBUTEROL SULFATE 0.083% NEB 2.5 MG/3 ML AMPUL NEB SCH ×3 (08:24→16:15)
[2016-06-10] MEDS: OXYCODONE-ACETAMINOPHEN 5-325 MG TABLET PO PRN (08:44)
[2016-06-10] MEDS: PRENATAL VITAMIN W-O CA NO5/FE FUMARATE/FA CAPSULE PO SCH (10:17)
[2016-06-10] MEDS: DOCUSATE SODIUM 100 MG CAPSULE PO SCH (10:17)
[2016-06-10 13:51] VITALS: BP 110/62
--- NOTE | 2016-06-10 18:16 | PDOC DISCHARGE SUMMARY ---
Final Diagnosis Discharge Date: 06/10/16 - Final Diagnosis (1) Status post primary low transverse section Is this a current diagnosis for this admission?: Yes Discharge Data - Discharge Medication Home Medications: Albuterol Sulfate [Ventolin 0.083% Neb 2.5 mg/3 mL Ampul] 2.5 mg NEB RTQ4HP PRN #60 vial.neb 10/01/15 Albuterol Sulfate [Ventolin Hfa] 2 puff PO Q4HP PRN #1 hfa.aer.ad 10/01/15 Vit W-Ca,Fe,FA(<1 mg) [ Vitamins] 1 each PO DAILY #30 tablet Albuterol Sulfate [Proair HFA Inhalation Aerosol 8.5 gm MDI] 2 puff IH Q3HP PRN #1 hfa.aer.ad 04/05/16 Albuterol Sulfate [Ventolin 0.083% Neb 2.5 mg/3 mL Ampul] 2.5 mg NEB Q3HP PRN # 25 vial 04/05/16 Docusate Sodium [Colace 100 mg Capsule] 100 mg PO BID #60 capsule 06/10/16 Ferrous Sulfate [Feosol 325 mg Tablet] 325 mg PO BID #60 tab 06/10/16 Ibuprofen [Motrin 800 mg Tablet] 800 mg PO Q8HP PRN #90 tablet 06/10/16 Oxycodone HCl/Acetaminophen [Percocet 5-325 mg Tablet] 1 tab PO Q4HP PRN #30 tablet 06/10/16 Reason(s) for Admission: Onset of Labor Procedures: NST, Ultrasound Intrapartum Procedure(s): : Low Cervical, Transverse - for face presentation - [place] Data Baby 1 Female at 1 minute: 8 at 5 minutes: 9 Weight: 2915 kg Home with Mother: Yes Complications: No - Diagnosis Test Laboratory: Temp Pulse Resp BP Pulse Ox 97.9 F 128 H 18 110/62 100 06/10/16 16:45 06/10/16 16:45 06/10/16 16:45 06/10/16 16:45 06/10/16 16:45 06/08/16 06/08/16 06/09/16 10:50 12:51 06:50 RBC 4.36 3.61 L Hgb 12.2 10.4 L Hct 37.1 30.4 L Urine Opiates Screen NEGATIVE - Discharge information/Instructions Discharge Activity: Activity As Tolerated, Balance Activity w/Rest, No Driving, No Lifting Over 10 Pounds, No Lifting/Push/Pulling, Pelvic Rest, Slowly Increase Activity, No tub bath Discharge Diet: Regular Disposition: HOME, SELF-CARE Follow up with: [facility] in: 1, Weeks - incision check Physical Exam (OB) Vital Signs: Temp Pulse Resp BP Pulse Ox 97.9 F 128 H 18 110/62 100 06/10/16 16:45 06/10/16 16:45 06/10/16 16:45 06/10/16 16:45 06/10/16 16:45 Intake & Output 06/09/16 06/10/16 06/11/16 06:59 06:59 06:59 Intake Total 2700 1430 Output Total 1600 700 Balance 1100 730 Weight 73.1 kg - General General Appearance: Appears well In distress: None - PIH/Pre-Eclampsia Clonus: Negative Headache: Absent Epigastric Pain: No Visual Changes: No - Dressing Removed: No Incision: Open Closure Type: Surgical Glue - Bilateral Tubal Ligation Dressing Removed: No Site: Well Approximated - Lochia Lochia Amount: Small 10-25 ml Lochia Color: Rubra/Red - Abdomen Description: Soft, Round Hernia Present: No Bowel Sounds: Hypoactive - passing gas still unable to have a bowel movement Flatus Presence: Present Fundal Description: Firm Fundal Height: u/u - u/2 - Respiratory Respiratory Status: No respiratory distress Respiratory Notes: having breathing treatment while in room - Abdominal Inspection: Normal - 4cm diameter of raised skin irritation on right lower quadrant. Pt. reports it's from abdominal binder, noticed it yesterday. Non erythematous, slightly echimotic, warning s/s reviewed. Distension: No distension - Extremities Upper extremity: Normal inspection Lower extremities: Edema - +1 - Neurological Cognition: Normal Orientation: AAOx4 - Psychological Associated symptoms: Normal affect, Normal mood - bonding well with baby. Helpful family at bedside
--- NOTE | 2016-06-25 08:14 | Operative Report ---
Operative Report DATE OF SURGERY: 06/08/16 OPERATION: Primary LTCS ANESTHESIA: Epidural PROCEDURE: PREOPERATIVE DIAGNOSIS: undelivered at [40+6] weeks, Face presentation not compatible with Vaginal delivery, Advanced cervical dilation POSTOPERATIVE DIAGNOSIS: Same as above delivered Procedure: Primary Low Transverse Section Retail Security Professional:[None] Anesthesia: Epidural Anesthesia provider: [Dr. Bartholomew] Estimated blood loss: [600ml] Urine output: [100ml] IV fluids: [800ml] Complications: [None] Specimens: [None] Findings: [viable female infant, time of 1541, Apgars 8/9, weight 6#7oz, Arcuate appearing uterus, Reportedly bicornuate uterus per history but 2nd horn not visualized] Indications: [21yo at 40+6ega presented in active labor with advanced cervical dilation at 9/c/0 with bulging bag. Due to positive GBS status no AROM was performed at admission and PCN initiated for GBS prophylaxis. She obtained and epidural and was comfortable. Approximately 3.5 hours after admission the patient was still 9/c/0 and with bulging bag of water. The CNM performed AROM which was uncomplicated. Due to variables noted on the NST I went in to check the patient and noted presentation to be a face presentation with mouth and mentum oriented in the transverse presentation to the maternal left. Reviewed malpresentation with patient and family and not compatible with vaginal delivery. Recommended to patient and family that we proceed with Primary section. The risks, benefits, alternatives discussed with the patient and she desires to proceed with planned procedure. ] Procedure: The patient was taken to the operating room where spinal anesthesia was obtained and found to be adequate. She was then prepped and draped in the normal sterile fashion and placed in the dorsal supine position with a leftward tilt. A Pfannenstiel skin incision was then made and carried through to the underlying layers of the fascia with the scalpel. The fascia was incised in the midline and the incision extended laterally with the Lucero scissors. The superior aspect of the fascial incision was then grasped with Abdirahman clamps elevated and the underlying rectus muscles dissected off [bluntly]. Attention was then turned to the inferior aspect of the fascial incision which in a similar fashion was grasped, tented up with Shalom clamps, and the rectus muscles dissected off [bluntly]. The rectus muscles were then in the midline and the peritoneum at the amount identified and entered [bluntly]. The peritoneal incision was then extended superiorly and inferiorly with good visualization of the bladder. The bladder blade was inserted and the vesicouterine peritoneum identified grasped with [place] pickups and entered sharply with the Metzenbaum scissors. This incision was then extended laterally with the Metzenbaum scissors and a bladder flap created digitally. The bladder blade was then reinserted and the lower uterine segment incised in a transverse fashion with the scalpel. The uterine incision was then extended bluntly. The bladder blade was removed and the infant's head was delivered from cephalic/transverse face presentation atraumatically. The nose and mouth were suctioned and the cord doubly clamped and cut. And the was handed off to waiting pediatricians. The placenta was then delivered spontaneously and the uterus exteriorized and cleared of all clots and debris. The uterine incision was then repaired with 1- 0 Vicryl in a running locked fashion. A second layer of the same suture was used to obtain hemostasis via imbrication of the initial layer. The bladder flap was then repaired with 3-0 chromic in a running fashion. The uterus was returned to the patient's abdomen and Interceed was placed overlying the uterine incision to prevent adhesions. The gutters were cleared of all clots and debris. All operative sites were noted to be hemostatic. The fascia was reapproximated with 0 Vicryl in a running fashion from each lateral edge to the midline. The skin was closed with 3-0 Monocryl in a running subcuticular fashion with overlying Dermabond for additional dressing as well as wound closure. The patient tolerated the procedure well. Sponge lap needle and instrument counts are correct x 2. 2 g of Ancef were given prior to skin incision. The patient was taken to the recovery area awake and in stable condition.
== END 2016-06-10 17:10 | disposition home or self-care (01) | DRG 765 ==
LOC: LC 10:06 → LR 10:29 → 2N 18:38
PROVIDERS: ADMIT Student in an Organized Health Care Education/Training Program; ATTEND Student in an Organized Health Care Education/Training Program
PROC: 10D00Z1 Extraction of Products of Conception, Low, Open Approach (ICD-10-PCS; principal; 2016-06-08)
PROC: 4A1HXCZ Monitoring of Products of Conception, Cardiac Rate, External Approach (ICD-10-PCS; 2016-06-08)
PROC: 3E0F73Z Introduction of Anti-inflammatory into Respiratory Tract, Via Natural or Artificial Opening (ICD-10-PCS; 2016-06-08)
DX: O64.2XX0 Obstructed labor due to face presentation, not applicable or unspecified (principal); J45.901 Unspecified asthma with (acute) exacerbation; O34.03 Maternal care for unspecified congenital malformation of uterus, third trimester; O26.893 Other specified pregnancy related conditions, third trimester; Z67.11 Type A blood, Rh negative; O99.824 Streptococcus B carrier state complicating childbirth; Q51.3 Bicornate uterus; O99.334 Smoking (tobacco) complicating childbirth; F17.210 Nicotine dependence, cigarettes, uncomplicated; O99.344 Other mental disorders complicating childbirth; F32.9 Major depressive disorder, single episode, unspecified; O77.0 Labor and delivery complicated by meconium in amniotic fluid; O99.513 Diseases of the respiratory system complicating pregnancy, third trimester; Z3A.40 40 weeks gestation of pregnancy; Z37.0 Single live birth
CPT/HCPCS: 1961; 36415; 80307; 81005; 85025; 85027; 85461; 86592; 86850; 86900; 86901; 94640; 94760; 94799; J0290; J1170; J1885; J1940; J2060; J2270; J2540; J2590; J2790; J3010; J3490

== ENCOUNTER 2016-08-16 16:32 | Emergency (ER) | payer MEDICAID ==
--- NOTE | 2016-08-16 16:51 | ER Document Report ---
ED Medical Screen (RME) - General Chief Complaint: Breathing Difficulty Stated Complaint: DIFFICULTY BREATHING,BACK PAIN,XHEST PAINS Mode of Arrival: Ambulatory Information source: Patient TRAVEL OUTSIDE OF THE [place] IN LAST 30 DAYS: No - Related Data Allergies/Adverse Reactions: No Known Allergies Allergy (Verified 08/16/16 16:35) Past Medical History Pulmonary Medical History: Reports: Hx Asthma Renal/ Medical History: Denies: Hx Peritoneal Dialysis Physical Exam - Vital signs Vitals: Temp Pulse Resp BP Pulse Ox 97.5 F 98 18 110/56 L 100 08/16/16 16:36 08/16/16 16:36 08/16/16 16:36 08/16/16 16:36 08/16/16 16:36 Interpretation: Normal. No: Tachycardic, Hypoxic, Tachypneic, Febrile - General General appearance: Appears well, Alert In distress: None - HEENT Head: Normocephalic Eyes: Normal Ears: Normal Nasal: Normal Mouth/Lips: Normal Mucous membranes: Normal - Respiratory Respiratory status: No respiratory distress Chest status: Nontender Breath sounds: Rhonchi, Wheezing, Other - MILDLY PROLONGED EXP. - Cardiovascular Rhythm: Regular Heart sounds: Normal auscultation Murmur: No Course - Vital Signs Vital signs: Temp Pulse Resp BP Pulse Ox 97.5 F 98 18 110/56 L 100 08/16/16 16:36 08/16/16 16:36 08/16/16 16:36 08/16/16 16:36 08/16/16 16:36
[2016-08-16] MEDS ORDERED: PREDNISONE 20 MG TABLET PO ONE (16:56)
[2016-08-16] MEDS ORDERED: IPRATROPIUM/ALBUTEROL 0.5-2.5 MG/3 ML AMPUL NEB ONE ×3 (16:56→19:24)
[2016-08-16] MEDS ORDERED: NORMAL SALINE 1000 ML 1,000 ML IV PRN ×2 (17:24→19:26)
--- NOTE | 2016-08-16 17:24 | ER Document Report ---
ED Respiratory Problem - General Chief Complaint: Breathing Difficulty Stated Complaint: DIFFICULTY BREATHING,BACK PAIN,XHEST PAINS Time seen by provider: 17:23 Mode of Arrival: Ambulatory Information source: Patient Notes: This is a 21-year-old female with asthma presents to the emergency room with significant shortness of breath and back pain. TRAVEL OUTSIDE OF THE [place] IN LAST 30 DAYS: No - HPI Patient complains to provider of: Asthma Onset: Last week Duration: Continuous Initiating Event: No: Allergy, Aspiration/Choking, Exertion, Exposure to chemicals, Exposure to dust, Exposure to fumes, Exposure to mold, Exposure to smoke, Out of meds, Sports/exercise, URI, Other Quality of pain: Other Severity: None - Back pain Pain Level: 2 Context: Hx asthma Short of Breath: Moderate Cough: Nonproductive Sputum amount: None At home treatment: Bronchodilators Associated symptoms: Cough, Difficulty breathing, Wheezing. denies: Fever Similar symptoms previously: Yes Recently seen / treated by doctor: No - Related Data Allergies/Adverse Reactions: No Known Allergies Allergy (Verified 08/16/16 16:35) Past Medical History - General Information source: Patient - Social History Smoking Status: Former Smoker Cigarette use (# per day): Yes - patient quit yesterday Chew tobacco use (# tins/day): No Frequency of alcohol use: None Drug Abuse: None Lives with: Family Family History: None Patient has suicidal ideation: No Patient has homicidal ideation: No Pulmonary Medical History: Reports: Hx Asthma Renal/ Medical History: Denies: Hx Peritoneal Dialysis Surgical Hx: Negative Review of Systems - Review of Systems Constitutional: denies: Chills, Fever EENT: No symptoms reported Cardiovascular: No symptoms reported Respiratory: See HPI Gastrointestinal: No symptoms reported Genitourinary: No symptoms reported Female Genitourinary: No symptoms reported Musculoskeletal: No symptoms reported Skin: No symptoms reported Hematologic/Lymphatic: No symptoms reported Neurological/Psychological: No symptoms reported Physical Exam - Vital signs Vitals: Temp Pulse Resp BP Pulse Ox 97.5 F 98 18 110/56 L 100 08/16/16 16:36 08/16/16 16:36 08/16/16 16:36 08/16/16 16:36 08/16/16 16:36 Notes: Physical exam: GENERAL: 81-year-old female, moderate respiratory distress, alert and oriented 3 HEAD: Atraumatic, normocephalic. EYES: Pupils equal round and reactive to light, extraocular movements intact, sclera anicteric, conjunctiva are normal. ENT: TMs normal, nares patent, oropharynx clear without exudates. Moist mucous membranes. NECK: Normal range of motion, supple without lymphadenopathy or JVD. LUNGS: Bilateral wheezing, accessory muscle use HEART: Regular rate and rhythm without murmurs, rubs or gallops. ABDOMEN: Soft, normoactive bowel sounds. No tenderness to palpation. No guarding, no rebound. No masses appreciated. EXTREMITIES: Normal range of motion, no pitting or edema. No clubbing or cyanosis. NEUROLOGICAL: Cranial nerves II through XII grossly intact. Normal speech, normal gait. PSYCH: Normal mood, normal affect. SKIN: Warm, Dry, normal turgor, no rashes or lesions noted. Course - Re-evaluation Re-evalutation: 08/16/16 22:01 Patient is feeling much better. She has good breath sounds she still has residual wheezing but she prefers to go home. Given the findings on CT of the groundglass appearance and her symptoms, I will treat her for an atypical pneumonia. Patient is ambulated in the ER and states she feels much better. She is still wheezing and I did offer her the option of admission for continued nebulizer treatments, however she states she feels good enough to go home. I will send her home with azithromycin, prednisone and albuterol. She will follow -up with her doctor and Dr. Craft's office. 08/17/16 00:22 08/17/16 00:22 - Vital Signs Vital signs: Temp Pulse Resp BP Pulse Ox 97.5 F 68 18 105/64 99 08/16/16 16:36 08/16/16 22:25 08/16/16 22:25 08/16/16 22:25 08/16/16 22:25 - Laboratory Result Diagrams: 08/16/16 17:49 08/16/16 17:49 Laboratory results interpreted by me: 08/16/16 17:49 WBC 13.7 H Eosinophils % 8.7 H Absolute Neutrophils 8.9 H Absolute Eosinophils 1.2 H - Diagnostic Test Radiology reviewed: Image reviewed, Reports reviewed - ETA shows no pulmonary emboli. There is a groundglass appearance. Discharge - Discharge Clinical Impression: asthma exacerbation Condition: Stable Disposition: HOME, SELF-CARE Additional Instructions: Recommendations: Continue the albuterol inhaler: 2 puffs every 4-6 hours as needed Start the prednisone tomorrow (you were given today's dose in the ER. Start antibiotics tomorrow: New given today's dose in the ER Rest, drink plenty of fluids. Follow-up with your family care doctor tomorrow. Return to the emergency room for worsening shortness of breath or any concerns he getting worse. Prescriptions: Azithromycin [Zithromax 250 mg Tablet] 250 mg PO ASDIR PRN #6 tablet PRN Reason: Prednisone [Deltasone 20 mg Tablet] 3 tab PO DAILY 5 Days
[2016-08-16] MEDS: MAGNESIUM SULFATE/D5W 100 ML IV SCH ×2 (17:48→19:51)
[2016-08-16 18:08] LABS: ABSOLUTE EOSINOPHILS # (AUTO) 1.2 10^3/uL (0.0-0.6); ABSOLUTE MONOCYTES (AUTO) 0.5 10^3/uL (0.1-1.4); ABSOLUTE NEUT (AUTO) 8.9 10^3/uL (1.7-8.2); BASOPHILS % (AUTO) 0.3 % (0-2); EOSINOPHILS % (AUTO) 8.7 % (0-6); HEMATOCRIT 42.2 % (36.0-47.0); HEMOGLOBIN 14.1 g/dL (12.0-15.5); HGB HCT DIFFERENCE 0.1; LYMPHOCYTES % (AUTO) 22.2 % (13-45); MEAN CORPUSCULAR HEMOGLOBIN 27.3 pg (27.0-33.4); MEAN CORPUSCULAR HGB CONC 33.5 g/dL (32.0-36.0); MEAN CORPUSCULAR VOLUME 82 fl (80-97); MONOCYTES % (AUTO) 3.6 % (3-13); RED BLOOD COUNT 5.17 10^6/uL (3.72-5.28); RED CELL DISTRIBUTION WIDTH 13.2 % (11.5-14.0); SEGMENTED NEUTROPHILS % (AUTO) 65.2 % (42-78); WHITE BLOOD COUNT 13.7 10^3/uL (4.0-10.5)
[2016-08-16 18:29] LABS: ALANINE AMINOTRANSFERASE 40 U/L (9-52); ALBUMIN 4.8 g/dL (3.5-5.0); ALKALINE PHOSPHATASE 98 U/L (38-126); ANION GAP 17 (5-19); ASPARTATE AMINO TRANSFERASE 21 U/L (14-36); BILIRUBIN,DIRECT 0.3 mg/dL (0.0-0.4); BILIRUBIN,TOTAL 0.6 mg/dL (0.2-1.3); BLOOD UREA NITROGEN 7 mg/dL (7-20); CALCIUM 10.1 mg/dL (8.4-10.2); CARBON DIOXIDE 22 mmol/L (22-30); CHLORIDE 104 mmol/L (98-107); GLUCOSE 97 mg/dL (75-110); POTASSIUM 4.5 mmol/L (3.6-5.0); SODIUM 143.2 mmol/L (137-145); TOTAL PROTEIN 8.1 g/dL (6.3-8.2)
[2016-08-16] MEDS ORDERED: AZITHROMYCIN 250 MG TABLET PO ONE (21:56)
[2016-08-16 22:27] VITALS: BP 105/64
== END 2016-08-16 22:25 | disposition home or self-care (01) ==
LOC: ER 16:32
DX: J45.901 Unspecified asthma with (acute) exacerbation (principal); M54.9 Dorsalgia, unspecified; F17.200 Nicotine dependence, unspecified, uncomplicated
CPT/HCPCS: 94640 ×2; 99285; 96365; 36415; 84702; 85025; 80053; 71020; 71275; Q0144; J3475; J7512; J7030; J7620

== ENCOUNTER 2017-04-21 22:24 | Emergency (ER) | payer SELFPAY ==
[2017-04-21] MEDS ORDERED: EPINEPHRINE INJ/PF 1 MG/1 ML AMPULE IM ONE (22:27)
[2017-04-21] MEDS ORDERED: ALBUTEROL SULFATE 0.083% NEB 2.5 MG/3 ML AMPUL NEB ONE ×3 (22:28→23:48)
[2017-04-21] MEDS ORDERED: EPINEPHRINE INJ/PF 1 MG/1 ML AMPULE ONE (22:30)
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
[2017-04-21 23:02] LABS: HEMATOCRIT 42.1 % (36.0-47.0); HEMOGLOBIN 13.9 g/dL (12.0-15.5); MEAN CORPUSCULAR HEMOGLOBIN 27.2 pg (27.0-33.4); MEAN CORPUSCULAR HGB CONC 33.1 g/dL (32.0-36.0); MEAN CORPUSCULAR VOLUME 82 fl (80-97); PLATELET COUNT 325 10^3/uL (150-450); RED BLOOD COUNT 5.12 10^6/uL (3.72-5.28); RED CELL DISTRIBUTION WIDTH 15.4 % (11.5-14.0)
[2017-04-21] MEDS ORDERED: KETAMINE HCL INJ 500 MG/10 ML VIAL IV ONE ×2 (23:03→23:07)
[2017-04-21 23:11] LABS: ANION GAP 14 (5-19); BLOOD UREA NITROGEN 11 mg/dL (7-20); CALCIUM 9.5 mg/dL (8.4-10.2); CARBON DIOXIDE 22 mmol/L (22-30); CHLORIDE 105 mmol/L (98-107); GLUCOSE 142 mg/dL (75-110); POTASSIUM 4.1 mmol/L (3.6-5.0); SODIUM 141.1 mmol/L (137-145)
[2017-04-21] MEDS ORDERED: KETAMINE HCL INJ 500 MG/10 ML VIAL ONE (23:11)
[2017-04-21 23:17] LABS: ABSOLUTE NEUTROPHILS# (MANUAL) 18.5 10^3/uL (1.7-8.2); BASOPHILS % (MANUAL) 0 % (0-2); EOSINOPHILS % (MANUAL) 6 % (0-6); LYMPHOCYTES % (MANUAL) 20 % (13-45); MONOCYTES % (MANUAL) 0 % (3-13); SEGMENTED NEUTROPHILS % (MAN) 74 % (42-78); TOTAL CELLS COUNTED 100
[2017-04-21 23:19] LABS: ANISOCYTOSIS SLIGHT; PLATELET COMMENT ADEQUATE; PLATELET LARGE PRESENT
[2017-04-22] MEDS ORDERED: KETAMINE HCL INJ 500 MG/10 ML VIAL IV ONE (00:21)
[2017-04-22 01:19] LABS: VENOUS BLOOD BASE EXCESS -3.8 mmol/L; VENOUS BLOOD HCO3 22.7 mmol/L (20-32); VENOUS BLOOD PCO2 46.8 mmHg (35-63); VENOUS BLOOD PH 7.3 (7.30-7.42)
[2017-04-22] MEDS ORDERED: ALBUTEROL SULFATE 0.083% NEB 2.5 MG/3 ML AMPUL NEB ONE (04:41)
[2017-04-22] MEDS ORDERED: NORMAL SALINE 1000 ML 1,000 ML IV ONE (08:10)
--- NOTE | 2017-04-22 08:12 | RADIOLOGY REPORT (SQ) ---
EXAM DESCRIPTION: CHEST SINGLE VIEW COMPLETED DATE/TIME: 04/21/2017 11:13 pm REASON FOR STUDY: dyspnea COMPARISON: CT angio chest 08/16/2016 EXAM PARAMETERS: NUMBER OF VIEWS: One view. TECHNIQUE: Single frontal radiographic view of the chest acquired. RADIATION DOSE: NA LIMITATIONS: Slightly rotated towards the WARD orientation, artifact from the patient's clothing and E KG leads FINDINGS: LUNGS AND PLEURA: Minimal right basilar airspace disease. Lungs otherwise clinically rochelle r. No pleural effusions. No pneumothorax. MEDIASTINUM AND HILAR STRUCTURES: No masses. Contour normal. HEART AND VASCULAR STRUCTURES: Heart normal in size. Normal vasculature. BONES: No acute findings. HARDWARE: None in the chest. OTHER: No other significant finding. IMPRESSION: Minimal right basilar airspace disease TECHNICAL DOCUMENTATION: JOB ID: [id number] [employer]- All Rights Reserved
[2017-04-22] MEDS: ALBUTEROL SULFATE 0.083% NEB 2.5 MG/3 ML AMPUL NEB SCH ×5 (08:39→16:17)
[2017-04-22] MEDS: METHYLPREDNISOLONE INJ 125 MG/2 ML SDV IV SCH ×2 (08:40→13:35)
[2017-04-22] MEDS ORDERED: KETAMINE HCL INJ 500 MG/10 ML VIAL IV SCH (08:45)
[2017-04-22] MEDS ORDERED: IPRATROPIUM/ALBUTEROL 0.5-2.5 MG/3 ML AMPUL NEB ONE ×2 (14:07→14:08)
--- NOTE | 2017-04-22 14:20 | EKG REPORT ---
SEVERITY:- ABNORMAL ECG - SINUS TACHYCARDIA LEFT ATRIAL ABNORMALITY NONSPECIFIC T ABNORMALITIES, DIFFUSE LEADS : Confirmed by: Sonny Du 22-Apr-2017 14:18:58
--- NOTE | 2017-04-22 16:12 | ER Document Report ---
Doctor's Note Notes: 04/22/17 16:12 Patient is on BiPAP satting 100%, she continues to have wheezing Patient is stable for transfer at this time
[2017-04-22 17:02] VITALS: BP 121/64
== END 2017-04-22 17:00 | disposition short-term general hospital (02) ==
LOC: ER 22:24
DX: J45.52 Severe persistent asthma with status asthmaticus (principal); R06.02 Shortness of breath; F41.9 Anxiety disorder, unspecified; F17.200 Nicotine dependence, unspecified, uncomplicated
CPT/HCPCS: 93005; 96376; 94640 ×2; 99291; 99292; 96375; 96365; 96366; 36415; 84703; 85025; 80048; 82803; 71045; 93010; 94660 ×2; J0171; J3490 ×2; J2930; J7030; J7620

== ENCOUNTER 2019-08-13 21:42 | Inpatient (IN) | payer SELFPAY ==
[2019-08-13] MEDS ORDERED: METHYLPREDNISOLONE INJ 125 MG/2 ML SDV IV ONE (22:04)
[2019-08-13] MEDS ORDERED: IPRATROPIUM/ALBUTEROL 0.5-2.5 MG/3 ML AMPUL NEB ONE (22:15)
--- NOTE | 2019-08-13 22:17 | ER Document Report ---
ED Respiratory Problem <DAYNA PEREZ - Last Filed: 08/14/19 08:30> - General TRAVEL OUTSIDE OF THE [place] IN LAST 30 DAYS: No <KAT GUTIERREZ - Last Filed: 08/14/19 23:24> - General Chief Complaint: Breathing Difficulty Stated Complaint: DIFFICULTY BREATHING Time Seen by Provider: 08/13/19 22:00 Notes: Patient is a 24-year-old female who presents to the emergency department with a chief complaint of shortness of breath. Patient has a history of asthma and states that she feels like this is one of her normal asthma exacerbations. Patient has an albuterol inhaler at home, but states that it is not helping. She is not on inhaled corticosteroids. (KAT GUTIERREZ) - Related Data Allergies/Adverse Reactions: No Known Allergies Allergy (Verified 08/16/16 16:35) Past Medical History - General Information source: Patient - Social History Smoking Status: Current Every Day Smoker Family History: None Pulmonary Medical History: Reports: Hx Asthma Renal/ Medical History: Denies: Hx Peritoneal Dialysis <PAOGRISKAT M - Last Filed: 08/14/19 23:24> Review of Systems <PAOGRISKAT M - Last Filed: 08/14/19 23:24> - Review of Systems Notes: REVIEW OF SYSTEMS: CONSTITUTIONAL : Denies recent illness. Denies recent unintentional weight loss. Denies fever, chills, or sweats. EENT: Denies eye, ear, throat, or mouth pain, discharge, or symptoms. Denies nasal or sinus congestion. CARDIOVASCULAR: Denies chest pain. RESPIRATORY: See HPI. GASTROINTESTINAL: Denies nausea, vomiting, and diarrhea. Denies abdominal pain. Denies constipation. GENITOURINARY: Denies difficulty urinating, burning, blood in urine, urgency or frequency. MUSCULOSKELETAL: Denies neck and back pain. Denies joint pain or swelling. SKIN: Denies rash, itchiness, or lesions HEMATOLOGIC : Denies easy bruising or bleeding. LYMPHATIC: Denies swollen, painful, enlarged glands. NEUROLOGICAL: Denies no numbness or tingling denies weakness. Denies headache. Denies altered mental status. Denies alteration in speech. PSYCHIATRIC: Denies stress, anxiety, alteration in sleep patterns, or depressi on. All other systems reviewed and negative. (KAT GUTIERREZ) Physical Exam <KAT GUTIERREZ - Last Filed: 08/14/19 23:24> - Vital signs Vitals: Temp 98.8 F 08/13/19 21:42 - Notes Notes: PHYSICAL EXAMINATION: GENERAL: Appears well, healthy, well-nourished, no acute distress. HEAD: Normocephalic, atraumatic. EYES: PERRL, conjunctiva normal, all extraocular movements intact, sclera nonicteric ENT: Moist mucous membranes. NECK: Supple, no noticeable swelling, redness, rash. Normal range of motion. LUNGS: Inspiratory and expiratory wheezes noted throughout all lung nunes. CARDIOVASCULAR: S1-S2, regular rate, regular rhythm. Radial pulses 2+, normal. ABDOMEN: Normoactive bowel sounds. Soft, nontender, no guarding, no rebound tenderness, and no masses palpated. EXTREMITIES: Normal strength and range of motion, no pitting or edema. No cyanosis. NEUROLOGICAL: Moves all extremities upon command. Strength 5/5 in all extremities. PSYCH: Normal mood, normal affect. SKIN: Warm, dry. No rash, lesions, ulcerations noted. Normal skin turgor. (KAT GUTIERREZ) Course - Laboratory Result Diagrams: 08/13/19 22:11 08/13/19 22:11 <DAYNA PEREZ - Last Filed: 08/14/19 08:30> - Laboratory Result Diagrams: 08/14/19 13:04 08/13/19 22:11 <KAT GUTIERREZ - Last Filed: 08/14/19 23:24> - Re-evaluation Re-evalutation: 08/14/19 03:45 I assumed care of this patient from Kat gutierrez [facility]. On my initial exam patient was still with significant inspiratory and expiratory wheezes. She appeared to have labored breathing but after questioning the patient she states this is her normal pattern of breathing. I asked her on subsequent reassessments and she reiterated that this is how she normally breathes. Prior to me assuming care patient received 3 DuoNeb's, Solu-Medrol 125 mg IV once, magnesium 2 g IV, and a subsequent albuterol neb. Patient reported subjective improvement with her breathing but she was still with inspiratory and expiratory wheezes, I ordered an additional albuterol neb and reassessed patient approximately 30 minutes after finishing. She had improvement on her left side with minimal to no wheezing in the left upper lobe and expiratory wheezing in the left lower lobe. The right side was still with inspiratory and expiratory wheezes. I am going to give her 1 more round of albuterol and reassess. Also, patient stated that she was and we do have a positive hCG qualitative. I will give her referral to [facility]. 08/14/19 05:14 Patient received 1 more round of an albuterol nebulizer. She does have interval improvement. Her SPO2 has maintained greater than 95%. Patient states she is moving air much better. 08/14/19 07:02 Patient still is tight even with the interval improvement. When I reassessed the patient she still has significant inspiratory and expiratory wheezing globally. Patient states that she feels better, though. She does still appear to be labored. I ambulated her on pulse ox and she did transiently drop to 93% but was able to overall maintain greater than 95% while walking. She did fatigue quickly and become short of breath, though. I attempted to call Dr. Rosado twice to initiate admission. He then called me back and deferred to the day team. Awaiting day team to come on to admit. (DAYNA PEREZ) 08/13/19 23:30 Patient was reevaluated. Her oxygen saturation was 96% on room air. We will give her another breathing treatment. Patient then told me that she was . States she is about 10 weeks with a LMP in May. States she has not had care. 08/14/19 00:20 Report given to MI Benoit. He will reevaluate the patient, as the patient still is a little bit tachypneic. We discussed labs. Patient also has a leukocytosis of 22,000 with a left shift. Chemistries show a potassium of 3.5. Potassium ordered. Chest x-ray was unremarkable. (KAT GUTIERREZ) - Vital Signs Vital signs: Temp Pulse Resp BP Pulse Ox 97.7 F 90 18 110/50 L 94 08/14/19 14:59 08/14/19 20:08 08/14/19 20:08 08/14/19 15:06 08/14/19 20:08 - Laboratory Laboratory results interpreted by me: 08/13/19 08/13/19 08/13/19 22:11 22:11 22:11 WBC 21.9 H RDW 15.2 H Seg Neuts % (Manual) 85 H Lymphocytes % (Manual) 5 L Abs Neuts (Manual) 18.6 H Carbonic Acid ABG pCO2 ABG pO2 ABG HCO3 ABG Total CO2 Sodium 135.9 L Potassium 3.5 L Glucose 116 H Serum HCG, Qual POSITIVE H 08/14/19 08:10 WBC RDW Seg Neuts % (Manual) Lymphocytes % (Manual) Abs Neuts (Manual) Carbonic Acid 0.71 L ABG pCO2 23.6 L ABG pO2 71.9 L ABG HCO3 13.7 L ABG Total CO2 14.5 L Sodium Potassium Glucose Serum HCG, Qual Discharge - Discharge Admitting Provider: Divina (Hospitalist) Unit Admitted: Medical Floor <DAYNA PEREZ - Last Filed: 08/14/19 08:30> <KAT GUTIERREZ - Last Filed: 08/14/19 23:24> - Discharge Clinical Impression: Asthma exacerbation Qualifiers: Asthma severity: moderate Asthma persistence: persistent Qualified Code(s): J45.41 - Moderate persistent asthma with (acute) exacerbation Qualifiers: Weeks of gestation: 9 weeks Qualified Code(s): Z3A.09 - 9 weeks gestation of Condition: Stable Disposition: ADMITTED INPATIENT
[2019-08-13] MEDS: MAGNESIUM SULFATE/D5W 1 GM/100 ML RTUPB IV SCH ×2 (22:34→23:01)
--- NOTE | 2019-08-13 23:14 | RADIOLOGY REPORT (SQ) ---
CLINICAL INDICATION: shortness of breath. TECHNIQUE: A single portable AP view was obtained of the chest at 2216 hours. COMPARISON: August 16, 2016. FINDINGS: The cardiomediastinal silhouette is normal. The lungs are grossly clear. No evidence of effusion or pneumothorax. The visualized bones are unremarkable. IMPRESSION: No evidence of active intrathoracic disease.
[2019-08-13 23:22] LABS: HEMATOCRIT 41.7 % (36.0-47.0); HEMOGLOBIN 14.7 g/dL (12.0-15.5); MEAN CORPUSCULAR HEMOGLOBIN 29.5 pg (27.0-33.4); MEAN CORPUSCULAR HGB CONC 35.2 g/dL (32.0-36.0); MEAN CORPUSCULAR VOLUME 84 fl (80-97); PLATELET COUNT 236 10^3/uL (150-450); RED BLOOD COUNT 4.98 10^6/uL (3.72-5.28); RED CELL DISTRIBUTION WIDTH 15.2 % (11.5-14.0); WHITE BLOOD COUNT 21.9 10^3/uL (4.0-10.5)
[2019-08-13] MEDS ORDERED: ALBUTEROL SULFATE 0.083% NEB 2.5 MG/3 ML AMPUL NEB ONE (23:36)
[2019-08-13 23:42] LABS: ALBUMIN 4.4 g/dL (3.5-5.0); ALKALINE PHOSPHATASE 78 U/L (38-126); ANION GAP 12 (5-19); ASPARTATE AMINO TRANSFERASE 15 U/L (14-36); BILIRUBIN,TOTAL 0.2 mg/dL (0.2-1.3); BLOOD UREA NITROGEN 10 mg/dL (7-20); CALCIUM 9.6 mg/dL (8.4-10.2); CARBON DIOXIDE 22 mmol/L (22-30); CHLORIDE 102 mmol/L (98-107); GLUCOSE 116 mg/dL (75-110); POTASSIUM 3.5 mmol/L (3.6-5.0); TOTAL PROTEIN 7.3 g/dL (6.3-8.2)
[2019-08-13 23:52] LABS: ABSOLUTE MONOCYTES # (MANUAL) 0.9 10^3/uL (0.1-1.4); BASOPHILS % (MANUAL) 0 % (0-2); EOSINOPHILS % (MANUAL) 2 % (0-6); LYMPHOCYTES % (MANUAL) 5 % (13-45); MONOCYTES % (MANUAL) 4 % (3-13); SEGMENTED NEUTROPHILS % (MAN) 85 % (42-78); TOTAL CELLS COUNTED 100
[2019-08-13 23:54] LABS: TOXIC GRANULATION 1+; TOXIC VACUOLATION PRESENT
[2019-08-13 23:55] LABS: ANISOCYTOSIS SLIGHT; OVALOCYTES SLIGHT; PLATELET COMMENT ADEQUATE; POIKILOCYTOSIS SLIGHT
[2019-08-13] MEDS ORDERED: POTASSIUM CHLORIDE 10 MEQ TABLET.ER PO ONE (23:57)
[2019-08-14] MEDS ORDERED: ALBUTEROL SULFATE 0.083% NEB 2.5 MG/3 ML AMPUL NEB ONE ×2 (01:21→04:16)
[2019-08-14] MEDS ORDERED: ALBUTEROL SULFATE HFA (90 MCG/PUFF) 8 GM MDI (1 MDI/ER DISP) IH ONE (05:16)
[2019-08-14] MEDS ORDERED: ALBUTEROL SULFATE HFA (90 MCG/PUFF) 8 GM MDI IH ONE (05:34)
[2019-08-14 08:21] LABS: ARTERIAL BLOOD BASE EXCESS -9.1 mmol/L; ARTERIAL BLOOD H2CO3 0.71 mmol/L (1.05-1.35); ARTERIAL BLOOD HCO3 13.7 mmol/L (20-24); ARTERIAL BLOOD O2 SATURATION 94.6 % (94-98); ARTERIAL BLOOD PCO2 23.6 mmHg (35-45); ARTERIAL BLOOD PH 7.38 (7.35-7.45); ARTERIAL BLOOD PO2 71.9 mmHg (80-100); ARTERIAL BLOOD TOTAL CO2 14.5 mmol/L (21-25)
[2019-08-14 08:25] LABS: ARTERIAL BLOOD FIO2 ROOM AIR
[2019-08-14] MEDS ORDERED: ONDANSETRON 4 MG TAB.RAPDIS PO PRN (12:27)
[2019-08-14] MEDS ORDERED: IPRATROPIUM/ALBUTEROL 0.5-2.5 MG/3 ML AMPUL NEB PRN (12:27)
[2019-08-14] MEDS ORDERED: ACETAMINOPHEN 325 MG TABLET PO PRN (12:27)
[2019-08-14 13:13] LABS: HEMATOCRIT 40.2 % (36.0-47.0); HEMOGLOBIN 14.1 g/dL (12.0-15.5); MEAN CORPUSCULAR HEMOGLOBIN 29.3 pg (27.0-33.4); MEAN CORPUSCULAR HGB CONC 35.2 g/dL (32.0-36.0); MEAN CORPUSCULAR VOLUME 83 fl (80-97); PLATELET COUNT 263 10^3/uL (150-450); RED BLOOD COUNT 4.83 10^6/uL (3.72-5.28); RED CELL DISTRIBUTION WIDTH 15.1 % (11.5-14.0); WHITE BLOOD COUNT 22.2 10^3/uL (4.0-10.5)
[2019-08-14 14:04] LABS: ABSOLUTE LYMPHOCYTES# (MANUAL) 0.7 10^3/uL (0.5-4.7); ABSOLUTE MONOCYTES # (MANUAL) 1.8 10^3/uL (0.1-1.4); BASOPHILS % (MANUAL) 0 % (0-2); EOSINOPHILS % (MANUAL) 0 % (0-6); LYMPHOCYTES % (MANUAL) 3 % (13-45); MONOCYTES % (MANUAL) 8 % (3-13); SEGMENTED NEUTROPHILS % (MAN) 89 % (42-78); TOTAL CELLS COUNTED 100
[2019-08-14 14:05] LABS: ANISOCYTOSIS SLIGHT; PLATELET COMMENT ADEQUATE; TOXIC GRANULATION SLIGHT; TOXIC VACUOLATION PRESENT
--- NOTE | 2019-08-14 15:01 | PDOC H&P ---
History of Present Illness Admission Date/PCP: 08/14/19 08:53 History of Present Illness: BHAVESH CUNNINGHAM is a 24 year old female with past medical history significant for asthma, tobacco abuse, hyperlipidemia who presents with week history of progressive worsening shortness of breath/YEUNG/dry cough which patient relates to smoking tobacco heavily. She states when she smokes menthols she tends to have much worse asthma attacks. She has never been intubated for her asthma reportedly but she states last year she was very close to this. She has a 2-year-old child at home and is currently 10 weeks and continues to smoke. She does state she decided to quit drinking alcohol when she found out she was . She does not use any inhalers for her asthma and the only me dication that she takes daily is an antidepressant but she cannot remember. In the ER, she initially had low oxygen saturations and these improved with multiple rounds of duo nebs/steroids/magnesium. She will be admitted for observation and continued nebulizer/steroid treatments. She was counseled extensively on smoking cessation. Past Medical History Pulmonary Medical History: Reports: Asthma, Respiratory Failure Psychiatric Medical History: Reports: Depression, Tobacco Dependency Social History Information Source: Patient, Emergency Med Personnel, [facility] Records Lives with: Family Smoking Status: Current Every Day Smoker Cigarettes Packs Per Day: 1 Frequency of Alcohol Use: Social Hx Recreational Drug Use: Yes Drugs: None, Other Hx Prescription Drug Abuse: No - Advance Directive Resuscitation Status: Full Code Surrogate healthcare decision maker:: Aunt Family History Family History: None Parental Family History Reviewed: Yes Children Family History Reviewed: Yes Sibling(s) Family History Reviewed.: Yes Medication/Allergy Home Medications: RX: Sertraline HCl 150 mg PO DAILY 08/14/19 Allergies/Adverse Reactions: No Known Allergies Allergy (Verified 08/16/16 16:35) Review of Systems All systems: reviewed and no additional remarkable complaints except as stated - Review of systems as per HPI, otherwise negative Physical Exam Vital Signs: Temp Pulse Resp BP Pulse Ox 98.0 F 74 18 115/54 L 94 08/14/19 11:43 08/14/19 11:43 08/14/19 11:43 08/14/19 11:43 08/14/19 11:43 Intake & Output 08/13/19 08/14/19 08/15/19 06:59 06:59 06:59 Intake Total 100 Balance 100 Weight 65.771 kg General appearance: PRESENT: no acute distress, well-developed, well-nourished Head exam: PRESENT: atraumatic, normocephalic Eye exam: PRESENT: conjunctiva pink Mouth exam: PRESENT: moist Respiratory exam: PRESENT: unlabored, wheezes. ABSENT: accessory muscle use, crackles, rales, retraction, rhonchi, tachypnea Cardiovascular exam: PRESENT: RRR. ABSENT: diastolic murmur, rubs, systolic murmur GI/Abdominal exam: PRESENT: normal bowel sounds, soft. ABSENT: distended, guarding, mass, organolmegaly, rebound, tenderness Rectal exam: PRESENT: deferred Musculoskeletal exam: PRESENT: ambulatory Neurological exam: PRESENT: alert, awake, oriented to person, oriented to place, oriented to time, oriented to situation Psychiatric exam: PRESENT: appropriate affect, normal mood Skin exam: PRESENT: dry, intact, warm Results Laboratory Results: 08/13/19 22:11 08/13/19 22:11 08/13/19 08/13/19 08/13/19 22:11 22:11 22:11 WBC 21.9 H RBC 4.98 Hgb 14.7 Hct 41.7 MCV 84 MCH 29.5 MCHC 35.2 RDW 15.2 H Plt Count 236 Seg Neutrophils % Not Reportable Carbonic Acid HCO3/H2CO3 Ratio ABG pH ABG pCO2 ABG pO2 ABG HCO3 ABG O2 Saturation ABG Base Excess FiO2 Sodium 135.9 L Potassium 3.5 L Chloride 102 Carbon Dioxide 22 Anion Gap 12 BUN 10 Creatinine 0.55 Est GFR ( Amer) > 60 Glucose 116 H Calcium 9.6 Total Bilirubin 0.2 AST 15 Alkaline Phosphatase 78 Total Protein 7.3 Albumin 4.4 Serum HCG, Qual POSITIVE H 08/14/19 08:10 WBC RBC Hgb Hct MCV MCH MCHC RDW Plt Count Seg Neutrophils % Carbonic Acid 0.71 L HCO3/H2CO3 Ratio 19:1 ABG pH 7.38 ABG pCO2 23.6 L ABG pO2 71.9 L ABG HCO3 13.7 L ABG O2 Saturation 94.6 ABG Base Excess -9.1 FiO2 ROOM AIR Sodium Potassium Chloride Carbon Dioxide Anion Gap BUN Creatinine Est GFR ( Amer) Glucose Calcium Total Bilirubin AST Alkaline Phosphatase Total Protein Albumin Serum HCG, Qual Impressions: Chest X-Ray 08/13/19 22:01 IMPRESSION: No evidence of active intrathoracic disease. Assessment and Plan - Diagnosis (1) Asthma exacerbation Qualifiers: Asthma severity: moderate Asthma persistence: persistent Qualified Code(s): J45.41 - Moderate persistent asthma with (acute) exacerbation Is this a current diagnosis for this admission?: Yes Plan: Likely due to smoking excessively at home, per patient this is often the trigger for her asthma exacerbations Counseled on smoking cessation Supplemental oxygen to maintain saturation 90 to 94% or greater Duo nebs PRN and scheduled Solu-Medrol, transition to prednisone at discharge Bronchial hygiene (2) Tobacco abuse Is this a current diagnosis for this admission?: Yes Plan: Counseled on cessation (3) Qualifiers: Weeks of gestation: 9 weeks Qualified Code(s): Z3A.09 - 9 weeks gestation of Is this a current diagnosis for this admission?: Yes Plan: Reportedly 9 to 10 weeks Admitted to the [facility] floor No reported bleeding or problems thus far per patient (4) Reactive airway disease with wheezing with acute exacerbation Is this a current diagnosis for this admission?: Yes (5) HLD (hyperlipidemia) Is this a current diagnosis for this admission?: Yes Plan: Not on any medications for this, diet-controlled - Time Time Spent with patient: 35 or more minutes Smoking Cessation Education: 3 to 10 minutes Medications reviewed and adjusted accordingly: Yes Anticipated discharge: Home Within: within 48 hours
--- NOTE | 2019-08-14 15:03 | ADVANCED CARE ---
- Diagnosis (1) Asthma exacerbation Diagnosis Current: Yes (2) Tobacco abuse Diagnosis Current: Yes (3) Diagnosis Current: Yes (4) Reactive airway disease with wheezing with acute exacerbation Diagnosis Current: Yes (5) HLD (hyperlipidemia) Diagnosis Current: Yes Attendance: Patient Resuscitation Status: Full Code Discussion: All aspects of code discussed with patient including intubation/chest compressions/cardioversion and she states she would like to be full code. She designates her aunt Cleopatra as her medical power of attorney lawyer. Time Spent: 17 minutes
[2019-08-14] MEDS: IPRATROPIUM/ALBUTEROL 0.5-2.5 MG/3 ML AMPUL NEB SCH ×2 (16:26→20:08)
[2019-08-14] MEDS: ENOXAPARIN SODIUM INJ 40 MG/0.4 ML DISP.SYRIN SUBCUT SCH (17:04)
[2019-08-14] MEDS ORDERED: ENOXAPARIN SODIUM INJ 40 MG/0.4 ML DISP.SYRIN SUBCUT SCH (18:00)
[2019-08-15] MEDS: IPRATROPIUM/ALBUTEROL 0.5-2.5 MG/3 ML AMPUL NEB SCH ×3 (00:10→08:25)
[2019-08-15] MEDS: DOCUSATE SODIUM 100 MG CAPSULE PO SCH (10:11)
[2019-08-15] MEDS: ENOXAPARIN SODIUM INJ 40 MG/0.4 ML DISP.SYRIN SUBCUT SCH (10:11)
--- NOTE | 2019-08-15 10:26 | PDOC CONSULTATION ---
Consultation Consult Date: 08/15/19 Provider Consulted: LING MIR Consult reason:: of unknown gestational age History of Present Illness Admission Date/PCP: 08/14/19 08:53 Patient complains of: asthma exacerbation History of Present Illness: BHAVESH CUNNINGHAM is a 24 year old female at unknown gestational age (she thinks possibly 10 wks) who presented to ER yesterday with significant asthma exacerbation. OB has been consulted regarding use of asthma medications in and to [facility]. patient denies vaginal bleeding, nausea or vo miting. Past Medical History LMP: MAY Gynecological Infection: No Obstetrical History: none - G1 delivered by due to malpresentation Pulmonary Medical History: Reports: Asthma, Respiratory Failure Psychiatric Medical History: Reports: Depression, Tobacco Dependency Social History Information Source: Patient Lives with: Family Smoking Status: Current Every Day Smoker Cigarettes Packs Per Day: 1 Frequency of Alcohol Use: Social Hx Recreational Drug Use: Yes Drugs: None, Other Hx Prescription Drug Abuse: No - Advance Directive Resuscitation Status: Full Code Family History Family History: None Parental Family History Reviewed: Yes Children Family History Reviewed: Yes Sibling(s) Family History Reviewed.: Yes Medication/Allergy Home Medications: Sertraline HCl 150 mg PO DAILY 08/14/19 Allergies/Adverse Reactions: No Known Allergies Allergy (Verified 08/16/16 16:35) Review of Systems Constitutional: PRESENT: as per HPI Physical Exam - Physical Exam Vital Signs: Temp Pulse Resp BP Pulse Ox 98.3 F 91 22 H 116/73 93 08/15/19 08:00 08/15/19 08:25 08/15/19 08:25 08/15/19 08:00 08/15/19 08:25 Intake & Output 08/14/19 08/15/19 08/16/19 06:59 06:59 06:59 Intake Total 100 300 Balance 100 300 Weight 65.771 kg Result Laboratory Results: 08/14/19 13:04 08/13/19 22:11 08/14/19 08/15/19 13:04 06:50 WBC 22.2 H RBC 4.83 Hgb 14.1 Hct 40.2 MCV 83 MCH 29.3 MCHC 35.2 RDW 15.1 H Plt Count 263 Seg Neutrophils % Not Reportable Magnesium 1.9 Impressions: Chest X-Ray 08/13/19 22:01 IMPRESSION: No evidence of active intrathoracic disease. Assessment & Plan - Diagnosis (1) Asthma exacerbation Qualifiers: Asthma severity: moderate Asthma persistence: persistent Qualified Code(s): J45.41 - Moderate persistent asthma with (acute) exacerbation Is this a current diagnosis for this admission?: Yes (2) HLD (hyperlipidemia) Is this a current diagnosis for this admission?: Yes (3) Qualifiers: Weeks of gestation: 9 weeks Qualified Code(s): Z3A.09 - 9 weeks gestation of (4) Tobacco abuse Is this a current diagnosis for this admission?: Yes (5) Reactive airway disease with wheezing with acute exacerbation Is this a current diagnosis for this admission?: Yes - Time Time Spent: 30 to 50 Minutes - Inpatient Certification Based on my medical assessment, after consideration of the patient's comorbidities, presenting symptoms, or acuity I expect that the services needed warrant INPATIENT care.: Yes I certify that my determination is in accordance with my understanding of Medicare's requirements for reasonable and necessary INPATIENT services [42 CFR 412.3e].: Yes Medical Necessity: Failure to Improve With Outpatient Therapy - Plan Summary Plan Summary: will order ultrasound for EGA. Recommend use of planned salumedrol and Zopenex for asthma treatment. Due to risks of vaginal bleeding would recommend not utilizing Lovenox at this time and use Kwadwo hose/SCDs for DVT prophylaxis. Thank you for the consult. Will continue to follow along for medication use.
--- NOTE | 2019-08-15 11:31 | PDOC PROGRESS REPORT ---
Subjective Progress Note for:: 08/15/19 Reason For Visit: ASTHMA EXACERBATION,,TOBACCO ABUSE 08/15/2019 Patient admitted with asthma exacerbation, , tobacco abuse Physical Exam Vital Signs: Temp Pulse Resp BP Pulse Ox 98.3 F 91 22 H 116/73 93 08/15/19 08:00 08/15/19 08:25 08/15/19 08:25 08/15/19 08:00 08/15/19 08:25 Intake & Output 08/14/19 08/15/19 08/16/19 06:59 06:59 06:59 Intake Total 100 300 Balance 100 300 Weight 65.771 kg General appearance: PRESENT: mild distress Respiratory exam: PRESENT: wheezes - Both inspiratory and expiratory Cardiovascular exam: PRESENT: RRR. ABSENT: diastolic murmur, rubs, systolic murmur Neurological exam: PRESENT: alert, awake, oriented to person, oriented to place, oriented to time, oriented to situation, CN II-XII grossly intact. ABSENT: motor sensory deficit Psychiatric exam: PRESENT: appropriate affect, normal mood. ABSENT: homicidal ideation, suicidal ideation Results Laboratory Results: 08/14/19 13:04 08/13/19 22:11 08/14/19 08/15/19 13:04 06:50 WBC 22.2 H RBC 4.83 Hgb 14.1 Hct 40.2 MCV 83 MCH 29.3 MCHC 35.2 RDW 15.1 H Plt Count 263 Seg Neutrophils % Not Reportable Magnesium 1.9 Impressions: Chest X-Ray 08/13/19 22:01 IMPRESSION: No evidence of active intrathoracic disease. Assessment and Plan - Diagnosis (1) Asthma exacerbation Qualifiers: Asthma severity: moderate Asthma persistence: persistent Qualified Code(s): J45.41 - Moderate persistent asthma with (acute) exacerbation Is this a current diagnosis for this admission?: Yes (2) Qualifiers: Weeks of gestation: 9 weeks Qualified Code(s): Z3A.09 - 9 weeks gestation of Is this a current diagnosis for this admission?: Yes (3) Tobacco abuse Is this a current diagnosis for this admission?: Yes - Plan Summary Summary: 08/15/2019 Appreciate consult by obstetrics. Agree with ultrasound to determine gestation. She states she really is not much better than when admitted yesterday. Patient states however that she always wheezes , and has been diagnosed with asthma about 7 years ago. Patient is unsure of her last menstrual cycle. Patient states this asthma exacerbation has been coming on for about a week now. Vital signs temperature 98.5 pulse 74 blood pressure 112/47 O2 sats anywhere from 90% to 100% on room air Patient still has leukocytosis though no sign of infection. I am going to switch her duo nebs to Xopenex and going to start her on Solu-Medrol 40 every 8 and then change her over to p.o. prednisone when she starts to get better. Anticipate another 48 hours - Time Time Spent with patient: 25-34 minutes
[2019-08-15] MEDS: LEVALBUTEROL HCL NEB 1.25 MG/3 ML AMPUL NEB SCH ×4 (12:30→23:35)
--- NOTE | 2019-08-15 13:33 | RADIOLOGY REPORT (SQ) ---
EXAM DESCRIPTION: U/S OB TRANSVAGINAL W/O DOP IMAGES COMPLETED DATE/TIME: 08/15/2019 1:08 pm REASON FOR STUDY: establish gestational age COMPARISON: None. TECHNIQUE: Transabdominal static and realtime grayscale images acquired of the pelvis. Additional se lected spectral and color Doppler images recorded. All images stored on PACs. bHCG: Not available. CLINICAL DATES: Not available. LIMITATIONS: None. FINDINGS: FETUS: Single Living intrauterine . ULTRASOUND EGA: 7 weeks 3 days. ULTRASOUND BELA: 03/30/2020 EFW: Not applicable less than 20 weeks. CRL: 1.2 cm. FHR: 160 beats per minute. SURVEY: Too early to assess. AMNIOTIC FLUID: Adequate amount. PLACENTA: Not yet developed due to early gestation. SUBCHORIONIC BLEED: No. SIZE OF BLEED: Not applicable. UTERUS: No masses. No anomalies. CERVICAL LENGTH: 2.9 cm. Closed. RIGHT ADNEXA: Normal ovary with normal vascular flow. No adnexal free fluid. No adnexal masses. LEFT ADNEXA: Normal ovary with normal vascular flow. No adnexal free fluid. No adnexal masses. FREE FLUID: None. OTHER: No other significant finding. IMPRESSION: LIVING INTRAUTERINE . EGA 7 WEEKS 2 DAYS. Trimester of : First trimester - 0 to 13 weeks. TECHNICAL DOCUMENTATION: JOB ID: [id number] 2010 [employer]- All Rights Reserved rev Reading location - IP/workstation name: [email or web address]
[2019-08-15] MEDS: METHYLPREDNISOLONE INJ 40 MG/1 ML SDV IV SCH ×2 (14:20→22:22)
[2019-08-15] MEDS: ONDANSETRON HCL INJ/PF 4 MG/2 ML SDV IV PRN (22:20)
[2019-08-16] MEDS: LEVALBUTEROL HCL NEB 1.25 MG/3 ML AMPUL NEB SCH ×5 (03:30→20:53)
[2019-08-16] MEDS: METHYLPREDNISOLONE INJ 40 MG/1 ML SDV IV SCH ×2 (05:10→17:27)
[2019-08-16 06:55] LABS: HEMATOCRIT 39.4 % (36.0-47.0); HEMOGLOBIN 13.9 g/dL (12.0-15.5); MEAN CORPUSCULAR HEMOGLOBIN 29.5 pg (27.0-33.4); MEAN CORPUSCULAR HGB CONC 35.3 g/dL (32.0-36.0); MEAN CORPUSCULAR VOLUME 84 fl (80-97); PLATELET COUNT 266 10^3/uL (150-450); RED BLOOD COUNT 4.71 10^6/uL (3.72-5.28); RED CELL DISTRIBUTION WIDTH 15.5 % (11.5-14.0); WHITE BLOOD COUNT 20.1 10^3/uL (4.0-10.5)
[2019-08-16 07:10] LABS: ANION GAP 10 (5-19); BLOOD UREA NITROGEN 10 mg/dL (7-20); CALCIUM 9.8 mg/dL (8.4-10.2); CARBON DIOXIDE 23 mmol/L (22-30); CHLORIDE 102 mmol/L (98-107); GLUCOSE 124 mg/dL (75-110); POTASSIUM 4.5 mmol/L (3.6-5.0)
[2019-08-16 07:26] LABS: ABSOLUTE LYMPHOCYTES# (MANUAL) 2.4 10^3/uL (0.5-4.7); ABSOLUTE MONOCYTES # (MANUAL) 0.2 10^3/uL (0.1-1.4); BASOPHILS % (MANUAL) 0 % (0-2); EOSINOPHILS % (MANUAL) 1 % (0-6); LYMPHOCYTES % (MANUAL) 10 % (13-45); MONOCYTES % (MANUAL) 1 % (3-13); SEGMENTED NEUTROPHILS % (MAN) 86 % (42-78); TOTAL CELLS COUNTED 100
[2019-08-16 07:27] LABS: ANISOCYTOSIS SLIGHT; PLATELET COMMENT ADEQUATE; PLATELET GIANT PRESENT; TOXIC GRANULATION SLIGHT; TOXIC VACUOLATION PRESENT
[2019-08-16] MEDS: DOCUSATE SODIUM 100 MG CAPSULE PO SCH (09:47)
--- NOTE | 2019-08-16 10:47 | PDOC PROGRESS REPORT ---
Subjective Progress Note for:: 08/16/19 Reason For Visit: ASTHMA EXACERBATION,,TOBACCO ABUSE 08/16/2019 Patient was admitted for shortness of breath secondary to asthma exacerbation, tobacco abuse, 7 weeks Physical Exam Vital Signs: Temp Pulse Resp BP Pulse Ox 97.8 F 60 16 104/44 L 97 08/16/19 08:26 08/16/19 08:26 08/16/19 08:26 08/16/19 08:26 08/16/19 08:26 Intake & Output 08/15/19 08/16/19 08/17/19 06:59 06:59 06:59 Intake Total 1200 300 Balance 1200 300 Weight 71.1 kg General appearance: PRESENT: mild distress Respiratory exam: PRESENT: wheezes - Both inspiratory and expiratory Cardiovascular exam: PRESENT: RRR. ABSENT: diastolic murmur, rubs, systolic murmur Neurological exam: PRESENT: alert, awake, oriented to person, oriented to place, oriented to time, oriented to situation, CN II-XII grossly intact. ABSENT: motor sensory deficit Psychiatric exam: PRESENT: appropriate affect, normal mood. ABSENT: homicidal ideation, suicidal ideation Results Laboratory Results: 08/16/19 06:36 08/16/19 06:36 08/16/19 08/16/19 06:36 06:36 WBC 20.1 H RBC 4.71 Hgb 13.9 Hct 39.4 MCV 84 MCH 29.5 MCHC 35.3 RDW 15.5 H Plt Count 266 Seg Neutrophils % Not Reportable Sodium 135.2 L Potassium 4.5 Chloride 102 Carbon Dioxide 23 Anion Gap 10 BUN 10 Creatinine 0.48 L Est GFR ( Amer) > 60 Glucose 124 H Calcium 9.8 Impressions: Chest X-Ray 08/13/19 22:01 IMPRESSION: No evidence of active intrathoracic disease. Obstetrics Ultrasound 08/15/19 00:00 IMPRESSION: LIVING INTRAUTERINE . EGA 7 WEEKS 2 DAYS. Trimester of : First trimester - 0 to 13 weeks. Assessment and Plan - Diagnosis (1) Asthma exacerbation Qualifiers: Asthma severity: moderate Asthma persistence: persistent Qualified Code(s): J45.41 - Moderate persistent asthma with (acute) exacerbation Is this a current diagnosis for this admission?: Yes (2) Qualifiers: Weeks of gestation: 9 weeks Qualified Code(s): Z3A.09 - 9 weeks gestation of Is this a current diagnosis for this admission?: Yes (3) Tobacco abuse Is this a current diagnosis for this admission?: Yes - Plan Summary Summary: 08/15/2019 Appreciate consult by obstetrics. Agree with ultrasound to determine gestation. She states she really is not much better than when admitted yesterday. Patient states however that she always wheezes , and has been diagnosed with asthma about 7 years ago. Patient is unsure of her last menstrual cycle. Patient states this asthma exacerbation has been coming on for about a week now. Vital signs temperature 98.5 pulse 74 blood pressure 112/47 O2 sats anywhere from 90% to 100% on room air Patient still has leukocytosis though no sign of infection. I am going to switch her duo nebs to Xopenex and going to start her on Solu-Medrol 40 every 8 and then change her over to p.o. prednisone when she starts to get better. I have also discontinued patient's Lovenox per obstetrics recommendation, she is currently on SCDs every shift,anticipate another 48 hours of admission.. 08/16/2019 Patient states she is feeling some better although clinically she is not able to go home today due to respiratory difficulties. Yesterday's ultrasound revealed a viable intrauterine 7 weeks 3 days. Vital signs today temperature 97.8 pulse 65 blood pressure 104/45 O2 sat between 92 to 97% on 2 to 3 L Labs today are stable. I am going to decrease her Solu-Medrol to every 12 hours today and hopefully plan to discharge her tomorrow on a Medrol Dosepak. Will probably send patient out on an albuterol inhaler as well . Patient states she feels better with the Xopenex nebulizers. - Time Time Spent with patient: 25-34 minutes
[2019-08-16] MEDS: ONDANSETRON HCL INJ/PF 4 MG/2 ML SDV IV PRN (18:09)
[2019-08-17] MEDS: LEVALBUTEROL HCL NEB 1.25 MG/3 ML AMPUL NEB SCH ×4 (00:51→12:08)
[2019-08-17] MEDS: METHYLPREDNISOLONE INJ 40 MG/1 ML SDV IV SCH (05:16)
[2019-08-17 08:40] VITALS: BP 108/46
--- NOTE | 2019-08-17 12:14 | PDOC PROGRESS REPORT ---
Subjective Progress Note for:: 08/17/19 Subjective:: Feels better. Declines SOB, cough, fever, chills, nausea/vomiting. Has no cramping or vaginal bleeding She is 7 weeks 5 days . Reason For Visit: ASTHMA EXACERBATION,,TOBACCO ABUSE Physical Exam - Physical Exam Vital Signs: Temp Pulse Resp BP Pulse Ox 98.2 F 76 16 108/46 L 98 08/17/19 11:49 08/17/19 11:49 08/17/19 11:49 08/17/19 11:49 08/17/19 11:49 Intake & Output 08/16/19 08/17/19 08/18/19 06:59 06:59 06:59 Intake Total 1200 1000 Balance 1200 1000 Weight 71.1 kg 71.3 kg General appearance: PRESENT: no acute distress, other - Resting quietly in bed Respiratory exam: PRESENT: wheezes - Good air movement but wheezing heard bilaterally with inhalation and exhalation. Breathing easily without retractions GI/Abdominal exam: PRESENT: normal bowel sounds - Not tender, soft Psychiatric exam: PRESENT: appropriate affect Skin exam: PRESENT: dry, warm Result Laboratory Results: 08/16/19 06:36 08/16/19 06:36 Impressions: Chest X-Ray 08/13/19 22:01 IMPRESSION: No evidence of active intrathoracic disease. Obstetrics Ultrasound 08/15/19 00:00 IMPRESSION: LIVING INTRAUTERINE . EGA 7 WEEKS 2 DAYS. Trimester of : First trimester - 0 to 13 weeks. Assessment & Plan - Diagnosis (1) Asthma exacerbation Qualifiers: Asthma severity: moderate Asthma persistence: persistent Qualified Code(s): J45.41 - Moderate persistent asthma with (acute) exacerbation Is this a current diagnosis for this admission?: Yes Plan: Breathing improved. Hospitalist managing. D/c with patient that she should be seen by stand grinder outpatient with her history.She lives near [place]. Discussed locations for this in [place] or [place] (2) Qualifiers: Weeks of gestation: less than 8 weeks Qualified Code(s): Z3A.01 - Less than 8 weeks gestation of Is this a current diagnosis for this admission?: Yes Plan: PNV daily [facility] care with OB provider in next 2 weeks outpatient. Discussed smoking cessation, asthma in and early (3) Tobacco abuse Is this a current diagnosis for this admission?: Yes Plan: D/c tobacco cessation. Encouraged her to stop. She has stopped previously but restarted. Reports she did get flu shot in fall but she is unsure of pneumovac. She can get this in and it is recommended for hx of asthma/tobacco use - Time Time Spent with patient: Less than 15 minutes - Plan Summary Plan Summary: As above.
[2019-08-17] MEDS: DOCUSATE SODIUM 100 MG CAPSULE PO SCH (12:56)
[2019-08-17] MEDS ORDERED: PRENATAL VITAMIN W DHA CAPSULE PO SCH (13:00)
== END 2019-08-17 14:05 | disposition home or self-care (01) | DRG 832 ==
LOC: ER 21:42 → OBSVTOIN 08-14 08:53 → INTOOBSV 08-14 08:53 → EH 08-14 08:53 → 2S 08-14 11:43
PROVIDERS: ADMIT Internal Medicine; ATTEND Physician Assistant
DX: O99.511 Diseases of the respiratory system complicating pregnancy, first trimester (principal); J45.41 Moderate persistent asthma with (acute) exacerbation; O99.281 Endocrine, nutritional and metabolic diseases complicating pregnancy, first trimester; E78.5 Hyperlipidemia, unspecified; O99.331 Smoking (tobacco) complicating pregnancy, first trimester; F17.210 Nicotine dependence, cigarettes, uncomplicated; Z3A.09 9 weeks gestation of pregnancy
CPT/HCPCS: 36415; 71045; 76817; 80048; 82803; 83735; 84703; 85025; 87070; 94640; 96365; 96375; 99285; G0378; J1650; J2405; J2920; J2930; J3475; J3490; J7620; S0119

== ENCOUNTER → 2019-10-03 | Outpatient (CLI) | payer MEDICAID ==
--- NOTE | 2019-10-03 15:37 | RADIOLOGY REPORT (SQ) ---
EXAM DESCRIPTION: U/S OB 14+ TRNABD 1GES W/O DOP IMAGES COMPLETED DATE/TIME: 10/03/2019 3:22 pm REASON FOR STUDY: ENCTR FOR SUPERVISION OF OTHER NORMAL , 2ND TRIMESTER (Z34.82) Z34.82 EN COUNTER FOR SUPRVSN OF NORMAL , SECOND TRI COMPARISON: None. TECHNIQUE: Static and Dynamic grayscale imaging performed of gravid uterus using transabdominal appr oach. Additional selected color Doppler and spectral images recorded. All stored on PACS. LIMITATIONS: None. FINDINGS: FETUSES SEEN:1 EGA: 15 weeks, 1 day Calculated using BPD,FL,HC,AC documented on images. Discrepancy with clinical d ates ; 2 weeks, 2 days ahead of clinical dates. BELA: 03/25/2020 EFW: Not reported on examination. PERCENTILE: Not applicable. Fetus less than or equal to 20 weeks gestation. LVP: 4.1 x 7.6 cm PLACENTA: Anterior PRESENTATION: Cephalic. ANATOMY: HEART RATE: 162 beats per minute. ANATOMY: anatomy not assessed. OTHER: No other significant finding. MATERNAL ADNEXA: Maternal ovaries not visualized. CERVICAL LENGTH: 2.5 cm Closed. OTHER: No other significant finding. IMPRESSION: LIVING INTRAUTERINE . ESTIMATED GESTATIONAL AGE 15 weeks, 1 day, which is 2 weeks, 2 days ahead of clinical dates. Trimester of : Second trimester - 13 weeks 1 day to 27 weeks 6 days. TECHNICAL DOCUMENTATION: JOB ID: [id number] 2010 [employer]- All Rights Reserved Reading location - IP/workstation name: [email or web address]
== END ==
LOC: RAD 14:17
PROVIDERS: ATTEND Midwife
DX: Z34.82 Encounter for supervision of other normal pregnancy, second trimester (principal)
CPT/HCPCS: 76805

== ENCOUNTER 2019-11-15 21:49 | Inpatient (IN) | payer MEDICAID ==
[2019-11-15] MEDS ORDERED: IPRATROPIUM/ALBUTEROL 0.5-2.5 MG/3 ML AMPUL NEB ONE (22:48)
--- NOTE | 2019-11-15 22:57 | ER Document Report ---
ED General - General Chief Complaint: Shortness Of Breath Stated Complaint: SHORTNESS OF BREATH Time Seen by Provider: 11/15/19 22:22 Primary Care Provider: KELLI MOSS CNM [Primary Care Provider] - Follow up as needed TRAVEL OUTSIDE OF THE [place] IN LAST 30 DAYS: No - HPI Notes: Chief complaint: Asthma flare History of present illness: 24-year-old female 2 para 1 at approximately 20 weeks EGA [facility] with longstanding history of asthma is experiencing a severe asthma flare gradually worsening over the last 2 days. Patient developed asthma as an adult. She has had multiple prior hospitalizations but is never been intubated. She was hospitalized earlier in this with an asthma flare at about 8 weeks EGA and quit smoking at that time. She has been on nebulizer treatments and inhaled steroids at home. She reports increased wheezing over the last 2 days with uncertain precipitating factor. She has been coughing but is not producing sputum. She denies fever. She denies known exposure to COVID virus. She has not traveled outside the area. Patient has been experiencing normal movement. She has some mild suprapubic cramping earlier today. She denies any vaginal bleeding or discharge. - Related Data Allergies/Adverse Reactions: No Known Allergies Allergy (Verified 08/16/16 16:35) Past Medical History - General Information source: Patient - Social History Smoking Status: Former Smoker Frequency of alcohol use: None Drug Abuse: None Lives with: Family Family History: None - Past Medical History Cardiac Medical History: Reports: None Pulmonary Medical History: Reports: Hx Asthma, Hx Respiratory Failure Endocrine Medical History: Denies: Hx Diabetes Mellitus Type 1, Hx Diabetes Mellitus Type 2 Renal/ Medical History: Denies: Hx Peritoneal Dialysis Psychiatric Medical History: Reports: Hx Depression Past Surgical History: Reports: Hx Section Review of Systems - Review of Systems Notes: Constitutional: Negative for fever. HENT: Negative for sore throat. Eyes: Negative for visual changes. Cardiovascular: Negative for chest pain. Respiratory: As per HPI Gastrointestinal: Negative for abdominal pain, vomiting or diarrhea. Genitourinary: As per HPI. Musculoskeletal: Negative for back pain. Skin: Negative for rash. Neurological: Negative for headaches, weakness or numbness. 10 point ROS negative except as marked above and in HPI. Physical Exam - Vital signs Vitals: Pulse Ox 92 11/15/19 21:52 - Notes Notes: GENERAL: Female patient of approximately stated age in moderate respiratory d istress. Patient is sitting in a tripod position. She is awake and alert and appears somewhat anxious. She is on 2 L of nasal O2 currently and has a 92% O2 saturation. SKIN: Good turgor no rashes. HEAD: Normocephalic atraumatic. EYES: PERRLA. EOMI. Conjunctivae and sclerae clear. EARS: CANALS AND TMS CLEAR. NOSE: CLEAR. MOUTH: Pursed lips breathing. Moist mucosa. Good dentition. No stridor or edema. No drooling. NECK: Supple. No masses or thyromegaly. No adenopathy. Carotids 2+ without bruits. No JVD. BACK: Symmetrical without tenderness. CHEST: Mild retractions and use of accessory muscles. Diffuse expiratory wheezes bilaterally. Breath sounds are symmetrical. HEART: Regular rhythm. No murmur gallop or rub. ABDOMEN: Gravid uterus consistent with dates. movement is appreciated. Soft nontender without hepatosplenomegaly bowel sounds normally active. No bruits. GENITALIA: Deferred. EXTREMITIES: No edema. No calf tenderness. Cap refill less than 1.5 seconds. Dorsalis pedis and posterior tibial pulses 3+ and symmetrical. NEUROLOGICAL: GCS 15. Alert and oriented x3. Fluent speech. Cranial nerves II through XII intact. Sensorimotor and cerebellar normal. Normal tone. PSYCHIATRIC: Appropriate affect. Course - Re-evaluation Re-evalutation: 11/15/19 22:57 Patient received IV Solu-Medrol and multiple nebulizer treatments per EMS. I will get an arterial blood gas on her at this time and a portable chest x-ray with shielding of the abdomen. We will continue nebulizer treatments. I am also going to give her IV magnesium sulfate. If she fails to show prompt improvement we will intervene with BiPAP. 11/16/19 02:25 Patient improved with administration of IV magnesium. She continues to wheeze diffusely and is mildly tachypneic but her blood gas is satisfactory. Her respiratory rate and pulse rate have come down. Her heart tones 160. I went back and reviewed her ultrasound from 6 weeks ago [address] would place her at 21 weeks estimated gestational age. Case was discussed with Dr. Levy from ACCOUNTING TECHNICIAN and she recommended aggressive medical management of patient's bronchospasm and medical issues but did not feel other interventions were necessary from an obstetrical standpoint. Patient has some diffuse patchy infiltrates bilaterally. COVID testing has been collected and results are pending. We have given her some IV Rocephin. Findings are reviewed with the on-call hospitalist Dr. Avina who will admit. - Vital Signs Vital signs: Temp Pulse Resp BP Pulse Ox 98.0 F 26 H 104/48 L 95 11/16/19 02:14 11/16/19 02:01 11/16/19 02:01 11/16/19 02:01 - Laboratory Result Diagrams: 11/16/19 00:56 11/16/19 00:56 Laboratory results interpreted by me: 11/15/19 11/16/19 11/16/19 22:55 00:56 00:56 WBC 19.6 H Seg Neuts % (Manual) 96 H Lymphocytes % (Manual) 4 L Monocytes % (Manual) 0 L Abs Neuts (Manual) 18.8 H Abs Monocytes (Manual) 0.0 L Carbonic Acid 0.76 L ABG pCO2 25.2 L ABG HCO3 16.8 L ABG Total CO2 17.6 L Sodium 133.3 L Carbon Dioxide 17 L BUN 5 L Glucose 183 H Critical Care Note - Critical Care Note Total time excluding time spent on procedures (mins): 65 - IV steroids, multiple nebulizer treatments. IV Rocephin. IV magnesium. Intensive bedside monitoring initially regarding possible need for intubation. Telephone consultation with ACCOUNTING TECHNICIAN. Discharge - Discharge Clinical Impression: IUP at 20 weeks EGA, Pneumonia affecting in second trimester Asthma exacerbation Qualifiers: Asthma severity: severe Asthma persistence: persistent Qualified Code(s): J45.51 - Severe persistent asthma with (acute) exacerbation Acute respiratory failure Qualifiers: Respiratory failure complication: unspecified whether with hypoxia or h ypercapnia Qualified Code(s): J96.00 - Acute respiratory failure, unspecified whether with hypoxia or hypercapnia Condition: Serious Disposition: ADMITTED INPATIENT Admitting Provider: Kailyn (Hospitalist) Unit Admitted: IMCU Referrals: KELLI MOSS CNM [Primary Care Provider] - Follow up as needed
[2019-11-15 23:13] LABS: ARTERIAL BLOOD BASE EXCESS -5.5 mmol/L; ARTERIAL BLOOD H2CO3 0.76 mmol/L (1.05-1.35); ARTERIAL BLOOD HCO3 16.8 mmol/L (20-24); ARTERIAL BLOOD O2 SATURATION 97.3 % (94-98); ARTERIAL BLOOD PCO2 25.2 mmHg (35-45); ARTERIAL BLOOD PH 7.44 (7.35-7.45); ARTERIAL BLOOD PO2 90.3 mmHg (80-100); ARTERIAL BLOOD TOTAL CO2 17.6 mmol/L (21-25)
[2019-11-15 23:18] LABS: ARTERIAL BLOOD FIO2 36%
[2019-11-15] MEDS: MAGNESIUM SULFATE/D5W 1 GM/100 ML RTUPB IV SCH (23:20)
--- NOTE | 2019-11-15 23:46 | RADIOLOGY REPORT (SQ) ---
EXAM DESCRIPTION: XR CHEST 1 VIEW COMPLETED DATE/TME: 11/15/2019 22:47 CLINICAL HISTORY: 24 years Female, asthma COMPARISON: 08/16/16 FINDINGS: Small hazy opacities of bilateral infrahilar lung nunes may indicate pneumonitis or subacute pulmonary edema. Adequate lung volume, pulmonary vascular congestion, normal cardiac silhouette, and intact bony thorax. IMPRESSION: Small hazy opacities of bilateral infrahilar lung nunes may indicate pneumonitis or subacute pulmonary edema.
[2019-11-15] MEDS ORDERED: CEFTRIAXONE INJ 1000 MG VIAL IV ONE (23:58)
[2019-11-16] MEDS: MAGNESIUM SULFATE/D5W 1 GM/100 ML RTUPB IV SCH (00:36)
[2019-11-16 01:26] LABS: HEMATOCRIT 37.4 % (36.0-47.0); MEAN CORPUSCULAR HEMOGLOBIN 29.2 pg (27.0-33.4); MEAN CORPUSCULAR HGB CONC 34.8 g/dL (32.0-36.0); MEAN CORPUSCULAR VOLUME 84 fl (80-97); PLATELET COUNT 243 10^3/uL (150-450); RED BLOOD COUNT 4.46 10^6/uL (3.72-5.28); WHITE BLOOD COUNT 19.6 10^3/uL (4.0-10.5)
[2019-11-16 01:41] LABS: ABSOLUTE LYMPHOCYTES# (MANUAL) 0.8 10^3/uL (0.5-4.7); BASOPHILS % (MANUAL) 0 % (0-2); EOSINOPHILS % (MANUAL) 0 % (0-6); LYMPHOCYTES % (MANUAL) 4 % (13-45); MONOCYTES % (MANUAL) 0 % (3-13); RBC MORPHOLOGY COMMENT NORMO-CYTIC/CHROMIC; SEGMENTED NEUTROPHILS % (MAN) 96 % (42-78); TOTAL CELLS COUNTED 100
[2019-11-16 01:42] LABS: ALBUMIN 3.9 g/dL (3.5-5.0); ALKALINE PHOSPHATASE 98 U/L (38-126); ANION GAP 9 (5-19); ASPARTATE AMINO TRANSFERASE 18 U/L (14-36); BILIRUBIN,DIRECT 0.1 mg/dL (0.0-0.4); BILIRUBIN,TOTAL 0.6 mg/dL (0.2-1.3); BLOOD UREA NITROGEN 5 mg/dL (7-20); CALCIUM 9.1 mg/dL (8.4-10.2); CARBON DIOXIDE 17 mmol/L (22-30); CHLORIDE 107 mmol/L (98-107); GLUCOSE 183 mg/dL (75-110); PLATELET COMMENT ADEQUATE; POTASSIUM 3.9 mmol/L (3.6-5.0); TOTAL PROTEIN 7.1 g/dL (6.3-8.2)
[2019-11-16] MEDS ORDERED: ACETAMINOPHEN 325 MG TABLET PO PRN (02:33)
--- NOTE | 2019-11-16 02:42 | PDOC H&P ---
History of Present Illness Admission Date/PCP: KELLI MOSS CNM History of Present Illness: BHAVESH CUNNINGHAM is a 24 year old female with a history of asthma who is 20 weeks who presents with worsening shortness of breath. She has not had any fevers. She has not had any known sick exposures. No abdominal pain, nausea, or vomiting. No chest pain. Primarily she is just been wheezing. She uses a nebulizer at home but was not getting enough relief. She said that this was going on for a few days and got worse yesterday evening. In the ER she was actually hypoxic and was on up to 4 L of oxygen. She had a leukocytosis but she also got 125 milligrams of Solu-Medrol en route via EMS. She had possible slight pulmonary edema on chest x-ray and is being tested for coronavirus. Past Medical History Cardiac Medical History: Reports: None Pulmonary Medical History: Reports: Asthma, Respiratory Failure Endocrine Medical History: Denies: Diabetes Mellitus Type 1, Diabetes Mellitus Type 2 Psychiatric Medical History: Reports: Depression Past Surgical History Past Surgical History: Reports: Section Social History Lives with: Family Smoking Status: Former Smoker Frequency of Alcohol Use: Social Hx Recreational Drug Use: Yes Drugs: None, Other Hx Prescription Drug Abuse: No Family History Family History: None Parental Family History Reviewed: Yes Children Family History Reviewed: Yes Sibling(s) Family History Reviewed.: Yes Medication/Allergy Home Medications: Sertraline HCl 150 mg PO DAILY 08/14/19 Acetaminophen [Tylenol 325 mg Tablet] 650 mg PO Q4HP PRN tablet 08/17/19 Albuterol Sulfate [Ventolin 0.083% Neb 2.5 mg/3 mL Ampul] 2.5 mg NEB Q6HP PRN 5 Days #30 vial.neb 08/17/19 Docusate Sodium [Colace 100 mg Capsule] 100 mg PO DAILY capsule 08/17/19 Methylprednisolone [Medrol Dosepack (4 mg/Tab) 21 Tab/Dosepak] 4 mg PO ASDIR PRN #21 tab.ds.pk 08/17/19 Allergies/Adverse Reactions: No Known Allergies Allergy (Verified 08/16/16 16:35) Review of Systems All systems: reviewed and no additional remarkable complaints except as stated - All systems were reviewed and were negative except as noted by the HPI Physical Exam Vital Signs: Temp Pulse Resp BP Pulse Ox 98.0 F 26 H 104/48 L 95 11/16/19 02:14 11/16/19 02:01 11/16/19 02:01 11/16/19 02:01 Intake & Output 11/14/19 11/15/19 11/16/19 06:59 06:59 06:59 Intake Total 200 Balance 200 Weight 77.065 kg General appearance: PRESENT: cooperative, disheveled, mild distress Head exam: PRESENT: atraumatic, normocephalic Eye exam: PRESENT: EOMI, PERRLA. ABSENT: conjunctival injection, nystagmus, scleral icterus Ear exam: PRESENT: normal external ear exam Mouth exam: PRESENT: moist, neck supple Throat exam: ABSENT: post pharyngeal erythema Neck exam: PRESENT: full ROM. ABSENT: carotid bruit, JVD, lymphadenopathy, meningismus, tenderness, thyromegaly Respiratory exam: PRESENT: prolonged expiratory phas, symmetrical, tachypnea, wheezes. ABSENT: accessory muscle use, chest wall tenderness, crackles, retraction, rhonchi, unlabored Cardiovascular exam: PRESENT: +S1, +S2, tachycardia Pulses: PRESENT: normal carotid pulses Vascular exam: PRESENT: normal capillary refill GI/Abdominal exam: PRESENT: normal bowel sounds, soft, other - Gravid. ABSENT: distended, guarding, rigid, tenderness Extremities exam: ABSENT: clubbing, pedal edema Musculoskeletal exam: PRESENT: normal inspection. ABSENT: deformity Neurological exam: PRESENT: alert, awake, oriented to person, oriented to place, oriented to situation, CN II-XII grossly intact. ABSENT: motor sensory deficit Psychiatric exam: PRESENT: flat affect Skin exam: PRESENT: dry, warm Results Laboratory Results: 11/16/19 00:56 11/16/19 00:56 11/15/19 11/16/19 11/16/19 22:55 00:56 00:56 WBC 19.6 H RBC 4.46 Hgb 13.0 Hct 37.4 MCV 84 MCH 29.2 MCHC 34.8 RDW 14.0 Plt Count 243 Seg Neutrophils % Not Reportable Carbonic Acid 0.76 L HCO3/H2CO3 Ratio 22:1 ABG pH 7.44 ABG pCO2 25.2 L ABG pO2 90.3 ABG HCO3 16.8 L ABG O2 Saturation 97.3 ABG Base Excess -5.5 FiO2 36% Sodium 133.3 L Potassium 3.9 Chloride 107 Carbon Dioxide 17 L Anion Gap 9 BUN 5 L Creatinine 0.52 Est GFR ( Amer) > 60 Glucose 183 H Calcium 9.1 Total Bilirubin 0.6 AST 18 Alkaline Phosphatase 98 Total Protein 7.1 Albumin 3.9 11/16/19 00:56 NT-Pro-B Natriuret Pep 52 Impressions: Chest X-Ray 11/15/19 22:47 IMPRESSION: Small hazy opacities of bilateral infrahilar lung nunes may indicate pneumonitis or subacute pulmonary edema. Assessment and Plan - Diagnosis (1) Acute respiratory failure Qualifiers: Respiratory failure complication: hypoxia Qualified Code(s): J96.01 - Acute respiratory failure with hypoxia Is this a current diagnosis for this admission?: Yes Plan: Supplemental O2 to maintain SPO2 greater than 90% (2) Asthma exacerbation Qualifiers: Asthma severity: moderate Asthma persistence: persistent Qualified Code(s): J45.41 - Moderate persistent asthma with (acute) exacerbation Is this a current diagnosis for this admission?: Yes Plan: She is wheezing pretty hard right now and is requiring oxygen. We will put her on some IV steroids along with nebulizer treatments and some Rocephin. She is being tested for coronavirus. Fortunately she quit smoking whenever she learned she was . - Time Time Spent with patient: 35 or more minutes Anticipated Discharge Disposition: Home, Self Care Anticipated Discharge Timeframe: within 72 hours - Inpatient Certification Based on my medical assessment, after consideration of the patient's comorbidities, presenting symptoms, or acuity I expect that the services needed warrant INPATIENT care.: Yes I certify that my determination is in accordance with my understanding of Medicare's requirements for reasonable and necessary INPATIENT services [42 CFR 412.3e].: Yes Medical Necessity: Failure to Improve With Outpatient Therapy, Significant Comorbidiites Make Outpatient Treatment Too Risky, Need Close Monitoring Due to Risk of Patient Decompensation, Need For Continuous Telemetry Monitoring, Need for Nebulizer Therapy and Monitoring of Response, Need for IV Antibiotics, Risk of Complication if Not Cared For in Hospital
[2019-11-16] MEDS: METHYLPREDNISOLONE INJ 40 MG/1 ML SDV IV SCH ×3 (06:08→22:17)
--- NOTE | 2019-11-16 10:29 | PDOC CONSULTATION ---
Consultation Consult Date: 11/16/19 Provider Consulted: DAVID PACHECO Consult reason:: Acute asthma attack History of Present Illness Admission Date/PCP: 11/16/19 02:32 KELLI MOSS CNM Patient complains of: Acute asthma attack History of Present Illness: BHAVESH CUNNINGHAM is a 24 year old female With at 20 weeks experiencing acute asthma attack please see the i nternist's H&P. Past Medical History Obstetrical History: none - Currently Cardiac Medical History: Reports: None Pulmonary Medical History: Reports: Asthma, Respiratory Failure Endocrine Medical History: Denies: Diabetes Mellitus Type 1, Diabetes Mellitus Type 2 Psychiatric Medical History: Reports: Depression Social History Information Source: Patient Lives with: Family Smoking Status: Former Smoker Frequency of Alcohol Use: Social Hx Recreational Drug Use: Yes Drugs: None, Other Hx Prescription Drug Abuse: No Family History Family History: None Parental Family History Reviewed: Yes Children Family History Reviewed: Yes Sibling(s) Family History Reviewed.: Yes Medication/Allergy Home Medications: Sertraline HCl 150 mg PO DAILY 08/14/19 Albuterol Sulfate [Ventolin 0.083% Neb 2.5 mg/3 mL Ampul] 2.5 mg NEB Q6HP PRN 5 Days #30 vial.neb 08/17/19 Cetirizine HCl [Zyrtec 10 mg Tablet] 10 mg PO DAILY 11/16/19 Allergies/Adverse Reactions: No Known Allergies Allergy (Verified 08/16/16 16:35) Review of Systems Respiratory: PRESENT: as per HPI Physical Exam - Physical Exam Vital Signs: Temp Pulse Resp BP Pulse Ox 97.9 F 98 22 H 114/74 98 11/16/19 04:58 11/16/19 07:00 11/16/19 04:58 11/16/19 04:58 11/16/19 04:58 Intake & Output 11/15/19 11/16/19 11/17/19 06:59 06:59 06:59 Intake Total 320 Balance 320 Weight 75.4 kg General appearance: PRESENT: mild distress Head exam: PRESENT: atraumatic, normocephalic Neck exam: PRESENT: full ROM. ABSENT: carotid bruit, JVD, lymphadenopathy, thyromegaly Respiratory exam: PRESENT: other - Consistent with acute asthma Cardiovascular exam: PRESENT: RRR. ABSENT: diastolic murmur, rubs, systolic murmur GI/Abdominal exam: PRESENT: other - Gravid Extremities exam: PRESENT: full ROM. ABSENT: calf tenderness, clubbing, pedal edema Neurological exam: PRESENT: alert, awake, oriented to person, oriented to place, oriented to time, oriented to situation, CN II-XII grossly intact. ABSENT: motor sensory deficit Result Laboratory Results: 11/16/19 00:56 11/16/19 00:56 11/15/19 11/16/19 11/16/19 22:55 00:56 00:56 WBC 19.6 H RBC 4.46 Hgb 13.0 Hct 37.4 MCV 84 MCH 29.2 MCHC 34.8 RDW 14.0 Plt Count 243 Seg Neutrophils % Not Reportable Carbonic Acid 0.76 L HCO3/H2CO3 Ratio 22:1 ABG pH 7.44 ABG pCO2 25.2 L ABG pO2 90.3 ABG HCO3 16.8 L ABG O2 Saturation 97.3 ABG Base Excess -5.5 FiO2 36% Sodium 133.3 L Potassium 3.9 Chloride 107 Carbon Dioxide 17 L Anion Gap 9 BUN 5 L Creatinine 0.52 Est GFR ( Amer) > 60 Glucose 183 H Calcium 9.1 Total Bilirubin 0.6 AST 18 Alkaline Phosphatase 98 Total Protein 7.1 Albumin 3.9 11/16/19 00:56 NT-Pro-B Natriuret Pep 52 Impressions: Chest X-Ray 11/15/19 22:47 IMPRESSION: Small hazy opacities of bilateral infrahilar lung nunes may indicate pneumonitis or subacute pulmonary edema. Patient has acute asthma attack. Treatment should be the same regardless of her . Her is at a previable age and can be monitored with heart tones along with her vitals. Every attempt should be made to keep her O2 saturation above 94%. Assessment & Plan - Diagnosis (1) Asthma exacerbation Qualifiers: Asthma severity: moderate Asthma persistence: persistent Qualified Code( s): J45.41 - Moderate persistent asthma with (acute) exacerbation Is this a current diagnosis for this admission?: Yes Plan: I agree with the plan as laid out by internal medicine. - Time Critical Time spent with patient: 15-24 minutes Medications reviewed and adjusted accordingly: Yes Anticipated Discharge Disposition: Home, Self Care Anticipated Discharge Timeframe: within 72 hours
[2019-11-16] MEDS ORDERED: ALBUTEROL SULFATE 0.083% NEB 2.5 MG/3 ML AMPUL NEB PRN (13:39)
[2019-11-16] MEDS ORDERED: MAGNESIUM SULFATE INJ 8 MEQ/2 ML IV ONE (13:58)
[2019-11-16] MEDS: IPRATROPIUM/ALBUTEROL 0.5-2.5 MG/3 ML AMPUL NEB PRN ×2 (16:15→21:05)
--- NOTE | 2019-11-16 16:37 | Progress Note ---
Provider Note Provider Note: Patient admitted late this morning by Dr. Avina. Please see H&P for full admission information. Patient seen and examined by me. Patient admitted for severe acute asthma attack unresponsive to conservative treatments at home and in the ER. Patient started on IV steroids and nebulizer treatments in the ED. Patient later taken to [facility] covid unit as the ED had ordered a coronavirus test. The COVID test will be pending for likely another 2 days. I discussed with respiratory therapy and nursing that patient needs nebulizer treatments given she is very low risk to actually have COVID and also has severe respiratory distress with asthma exacerbation in the setting of 20 weeks . I also performed rib raising on the patient bilaterally which seemed to significantly improve her respiratory distress and chest tightness. Patient needs to be moved out of the COVID unit as soon as possible once her t est comes back negative. She is high risk for complications from coronavirus in the setting of and severe asthma exacerbation.
[2019-11-16] MEDS: CETIRIZINE 10 MG TABLET PO SCH (17:20)
[2019-11-16] MEDS: SERTRALINE HCL 50 MG TABLET PO SCH (17:20)
[2019-11-16] MEDS: FLUTICASONE/VILANTEROL 100-25 MCG/DOSE IH SCH (17:21)
[2019-11-16] MEDS: CEFTRIAXONE 1 GM/D5W RTU 1 GM/50 ML RTUPB IV SCH (22:18)
[2019-11-17] MEDS: METHYLPREDNISOLONE INJ 40 MG/1 ML SDV IV SCH ×3 (05:04→21:08)
[2019-11-17 05:57] LABS: HEMATOCRIT 36.9 % (36.0-47.0); HEMOGLOBIN 12.7 g/dL (12.0-15.5); MEAN CORPUSCULAR HEMOGLOBIN 29.2 pg (27.0-33.4); MEAN CORPUSCULAR HGB CONC 34.4 g/dL (32.0-36.0); MEAN CORPUSCULAR VOLUME 85 fl (80-97); PLATELET COUNT 283 10^3/uL (150-450); RED BLOOD COUNT 4.36 10^6/uL (3.72-5.28); RED CELL DISTRIBUTION WIDTH 14.5 % (11.5-14.0); WHITE BLOOD COUNT 19.4 10^3/uL (4.0-10.5)
[2019-11-17 06:19] LABS: ANION GAP 7 (5-19); BLOOD UREA NITROGEN 10 mg/dL (7-20); CALCIUM 9.4 mg/dL (8.4-10.2); CARBON DIOXIDE 22 mmol/L (22-30); CHLORIDE 106 mmol/L (98-107); GLUCOSE 99 mg/dL (75-110); POTASSIUM 4.8 mmol/L (3.6-5.0)
[2019-11-17] MEDS: FLUTICASONE/VILANTEROL 100-25 MCG/DOSE IH SCH (09:24)
[2019-11-17] MEDS: CETIRIZINE 10 MG TABLET PO SCH (09:24)
[2019-11-17] MEDS: SERTRALINE HCL 50 MG TABLET PO SCH (09:24)
[2019-11-17] MEDS: IPRATROPIUM/ALBUTEROL 0.5-2.5 MG/3 ML AMPUL NEB PRN ×2 (09:41→14:59)
--- NOTE | 2019-11-17 13:25 | PDOC PROGRESS REPORT ---
Subjective Progress Note for:: 11/17/19 Subjective:: Patient admitted for severe asthma attack, notable she is also 20 weeks . 11/17/2019 Patient overall doing significantly better than yesterday after getting ne bulized treatments and rib raising. Her COVID test is negative and she will be immediately moved out of the COVID unit. I discussed this with nursing. As patient stabilizes we can start weaning off her supplemental oxygen. Her shortness of breath is improved and she has no new complaints today. Reason For Visit: ACUTE ASTHMA EXACERBATION Physical Exam Vital Signs: Temp Pulse Resp BP Pulse Ox 98.0 F 80 12 105/47 L 97 11/17/19 08:35 11/17/19 09:40 11/17/19 09:40 11/17/19 08:35 11/17/19 09:40 Intake & Output 11/16/19 11/17/19 11/18/19 06:59 06:59 06:59 Intake Total 320 1240 Balance 320 1240 Weight 75.4 kg 75.2 kg General appearance: PRESENT: no acute distress, well-developed, well-nourished Head exam: PRESENT: atraumatic, normocephalic Eye exam: PRESENT: conjunctiva pink Mouth exam: PRESENT: moist Respiratory exam: PRESENT: wheezes - Moderate, improved from yesterday. ABSENT: rales, rhonchi Cardiovascular exam: PRESENT: RRR. ABSENT: diastolic murmur, rubs, systolic murmur GI/Abdominal exam: PRESENT: normal bowel sounds, soft. ABSENT: distended, guarding, mass, organolmegaly, rebound, tenderness Neurological exam: PRESENT: alert, awake, oriented to person, oriented to place, oriented to time, oriented to situation Skin exam: PRESENT: dry, intact, warm Results Laboratory Results: 11/17/19 05:15 11/17/19 05:15 11/17/19 11/17/19 05:15 05:15 WBC 19.4 H RBC 4.36 Hgb 12.7 Hct 36.9 MCV 85 MCH 29.2 MCHC 34.4 RDW 14.5 H Plt Count 283 Sodium 135.0 L Potassium 4.8 Chloride 106 Carbon Dioxide 22 Anion Gap 7 BUN 10 Creatinine 0.55 Est GFR ( Amer) > 60 Glucose 99 Calcium 9.4 11/16/19 00:56 NT-Pro-B Natriuret Pep 52 Impressions: Chest X-Ray 11/15/19 22:47 IMPRESSION: Small hazy opacities of bilateral infrahilar lung nunes may indicate pneumonitis or subacute pulmonary edema. Assessment and Plan - Diagnosis (1) Asthma exacerbation Qualifiers: Asthma severity: moderate Asthma persistence: persistent Qualified Code(s): J45.41 - Moderate persistent asthma with (acute) exacerbation Is this a current diagnosis for this admission?: Yes Plan: Severe asthma exacerbation requiring hospitalization, has occurred multiple pete es in the past Per patient, she has stopped smoking since her last admission although there are people who do still smoke around her If she has frequent exacerbations, may be worth checking Aspergillus antibodies and IgE, can hold off on this for now Duo nebs Inhalers Supplemental oxygen to maintain saturation equal to or greater than 94% (2) Acute respiratory failure Qualifiers: Respiratory failure complication: hypoxia Qualified Code(s): J96.01 - Acute respiratory failure with hypoxia Is this a current diagnosis for this admission?: Yes Plan: Hypoxemic due to asthma exacerbation Supplemental O2, nebs, steroids, inhalers (3) Qualifiers: Weeks of gestation: 20 weeks Qualified Code(s): Z3A.20 - 20 weeks gestation of Is this a current diagnosis for this admission?: Yes Plan: Obstetrics consulted, agree with current plan (4) Reactive airway disease with wheezing with acute exacerbation Is this a current diagnosis for this admission?: Yes - Time Time Spent with patient: 15-24 minutes Medications reviewed and adjusted accordingly: Yes Anticipated Discharge Disposition: Home, Self Care Anticipated Discharge Timeframe: within 72 hours - Inpatient Certification Based on my medical assessment, after consideration of the patient's comorbidities, presenting symptoms, or acuity I expect that the services needed warrant INPATIENT care.: Yes I certify that my determination is in accordance with my understanding of Medicare's requirements for reasonable and necessary INPATIENT services [42 CFR 412.3e].: Yes Medical Necessity: Significant Comorbidiites Make Outpatient Treatment Too Risky, Need Close Monitoring Due to Risk of Patient Decompensation, Need for Nebulizer Therapy and Monitoring of Response, Risk of Complication if Not Cared For in Hospital, Risk of Diagnosis Which Will Require Inpatient Eval/Care/Monitoring
[2019-11-17] MEDS: CEFTRIAXONE 1 GM/D5W RTU 1 GM/50 ML RTUPB IV SCH (21:09)
[2019-11-18] MEDS: METHYLPREDNISOLONE INJ 40 MG/1 ML SDV IV SCH (06:02)
[2019-11-18 08:21] LABS: HEMATOCRIT 37.8 % (36.0-47.0); HEMOGLOBIN 12.8 g/dL (12.0-15.5); MEAN CORPUSCULAR HEMOGLOBIN 28.5 pg (27.0-33.4); MEAN CORPUSCULAR HGB CONC 33.7 g/dL (32.0-36.0); MEAN CORPUSCULAR VOLUME 84 fl (80-97); PLATELET COUNT 259 10^3/uL (150-450); RED BLOOD COUNT 4.48 10^6/uL (3.72-5.28); WHITE BLOOD COUNT 14.9 10^3/uL (4.0-10.5)
[2019-11-18 08:43] LABS: ANION GAP 5 (5-19); BLOOD UREA NITROGEN 9 mg/dL (7-20); CALCIUM 9.1 mg/dL (8.4-10.2); CARBON DIOXIDE 24 mmol/L (22-30); CHLORIDE 106 mmol/L (98-107); GLUCOSE 96 mg/dL (75-110); POTASSIUM 4.4 mmol/L (3.6-5.0)
[2019-11-18] MEDS: PREDNISONE 20 MG TABLET PO SCH (10:18)
[2019-11-18] MEDS: SERTRALINE HCL 50 MG TABLET PO SCH (10:18)
[2019-11-18] MEDS: FLUTICASONE/VILANTEROL 100-25 MCG/DOSE IH SCH (10:18)
[2019-11-18] MEDS: CETIRIZINE 10 MG TABLET PO SCH (10:18)
--- NOTE | 2019-11-18 10:41 | PDOC PROGRESS REPORT ---
Subjective Progress Note for:: 11/18/19 Subjective:: Patient states that she is willing better today. She states that she believes her asthma attack was triggered by hugging around her friends with smoking. She states that she does not smoke herself. Has had 3 asthma attacks in the past 1 year with 2-3 hospitalizations according to her. Only uses rescue inhalers at home. Has any chest pain. States her cough is improved. Denies chest tightness. Reason For Visit: ACUTE ASTHMA EXACERBATION Physical Exam Vital Signs: Temp Pulse Resp BP Pulse Ox 97.6 F 63 16 111/55 L 97 11/18/19 04:54 11/18/19 04:54 11/18/19 04:54 11/18/19 04:54 11/18/19 04:54 Pulse Oximeter Continuous Start: 11/17/19 15:39 Freq: RTQ4 Status: Active Protocol: Document 11/18/19 03:52 CMI (Rec: 11/18/19 04:11 [email or web address] [id number]) Pulse Oximetry Assessment Oxygen Saturation (92-100) 97 Oxygen Flow Rate (L/min) 2 Oxygen Delivery Method Nasal Cannula Fraction of Inspired Oxygen (FIO2) 28 Equipment Usage Equipment in Use Continuous SpO2 Machine # 7 Intake & Output 11/17/19 11/18/19 11/19/19 06:59 06:59 06:59 Intake Total 1240 1760 Balance 1240 1760 Weight 75.2 kg 75.5 kg General appearance: PRESENT: no acute distress, cooperative Neck exam: ABSENT: JVD Respiratory exam: PRESENT: symmetrical, unlabored, wheezes. ABSENT: accessory muscle use, retraction, tachypnea Cardiovascular exam: PRESENT: RRR, +S1, +S2. ABSENT: tachycardia GI/Abdominal exam: PRESENT: soft, other - Gravid. ABSENT: rebound, rigid, tenderness Neurological exam: PRESENT: alert, awake, oriented to person, oriented to place, oriented to time Psychiatric exam: ABSENT: agitated, anxious Skin exam: ABSENT: cyanosis Results Laboratory Results: 11/18/19 07:45 11/18/19 07:45 11/18/19 11/18/19 07:45 07:45 WBC 14.9 H RBC 4.48 Hgb 12.8 Hct 37.8 MCV 84 MCH 28.5 MCHC 33.7 RDW 14.0 Plt Count 259 Sodium 135.2 L Potassium 4.4 Chloride 106 Carbon Dioxide 24 Anion Gap 5 BUN 9 Creatinine 0.47 L Est GFR ( Amer) > 60 Glucose 96 Calcium 9.1 11/16/19 00:56 NT-Pro-B Natriuret Pep 52 Impressions: Chest X-Ray 11/15/19 22:47 IMPRESSION: Small hazy opacities of bilateral infrahilar lung nunes may indicate pneumonitis or subacute pulmonary edema. Assessment and Plan - Diagnosis (1) Asthma exacerbation Qualifiers: Asthma severity: moderate Asthma persistence: persistent Qualified Code(s ): J45.41 - Moderate persistent asthma with (acute) exacerbation Is this a current diagnosis for this admission?: Yes Plan: Severe asthma exacerbation requiring hospitalization. Has had 2 exacerbations in the past 1 year with 2-3 hospitalizations. She believes secondhand smoke inhalation is a trigger. Have advised her to stay away from people when you are smoking. Duo nebs every 6 hours. Change steroids to prednisone. Continue Breo. We will plan to discharge tomorrow on maintenance inhaler. (2) Acute respiratory failure Qualifiers: Respiratory failure complication: hypoxia Qualified Code(s): J96.01 - Acute respiratory failure with hypoxia Is this a current diagnosis for this admission?: Yes Plan: Able to wean patient off oxygen today. SPO2 still maintaining over 94% on room air. Will monitor closely. (3) Leukocytosis Is this a current diagnosis for this admission?: Yes Plan: Currently on steroids. Leukocytosis is trending down. On ceftriaxone. Source unclear. I have reviewed chest x-ray image myself which shows granular mild opacities seen in lower lungs mostly on the left. Report states concern for pneumonitis. COVID-19 test was negative. (4) Qualifiers: Weeks of gestation: 20 weeks Qualified Code(s): Z3A.20 - 20 weeks gestation of Is this a current diagnosis for this admission?: Yes Plan: Has been evaluated by centerless grinding machine adjuster and no further recommendations at this time. - Time Time Spent with patient: 15-24 minutes Anticipated Discharge Disposition: Home, Self Care Anticipated Discharge Timeframe: within 24 hours
[2019-11-18] MEDS: IPRATROPIUM/ALBUTEROL 0.5-2.5 MG/3 ML AMPUL NEB SCH ×3 (11:59→19:33)
[2019-11-18] MEDS: CEFTRIAXONE 1 GM/D5W RTU 1 GM/50 ML RTUPB IV SCH (21:54)
[2019-11-18] MEDS: MAGNESIUM SULFATE/D5W 1 GM/100 ML RTUPB IV SCH ×2 (22:38→22:39)
[2019-11-19] MEDS: IPRATROPIUM/ALBUTEROL 0.5-2.5 MG/3 ML AMPUL NEB SCH ×2 (02:00→08:05)
[2019-11-19 06:32] LABS: HEMATOCRIT 37.4 % (36.0-47.0); HEMOGLOBIN 12.5 g/dL (12.0-15.5); MEAN CORPUSCULAR HEMOGLOBIN 28.9 pg (27.0-33.4); MEAN CORPUSCULAR HGB CONC 33.5 g/dL (32.0-36.0); MEAN CORPUSCULAR VOLUME 86 fl (80-97); PLATELET COUNT 262 10^3/uL (150-450); RED BLOOD COUNT 4.34 10^6/uL (3.72-5.28); RED CELL DISTRIBUTION WIDTH 14.2 % (11.5-14.0)
[2019-11-19] MEDS: PREDNISONE 20 MG TABLET PO SCH (09:14)
[2019-11-19] MEDS: SERTRALINE HCL 50 MG TABLET PO SCH (09:14)
[2019-11-19] MEDS: FLUTICASONE/VILANTEROL 100-25 MCG/DOSE IH SCH (09:15)
[2019-11-19] MEDS: CETIRIZINE 10 MG TABLET PO SCH (09:15)
--- NOTE | 2019-11-19 10:21 | PDOC DISCHARGE SUMMARY ---
Impression - Admit/DC Date/PCP Admission Date/Primary Care Provider: 11/16/19 02:32 Discharge Date: 11/19/19 - Discharge Diagnosis (1) Asthma exacerbation Is this a current diagnosis for this admission?: Yes (2) Acute respiratory failure Is this a current diagnosis for this admission?: Yes (3) Leukocytosis Is this a current diagnosis for this admission?: Yes (4) Is this a current diagnosis for this admission?: Yes - Additional Information Discharge Diet: Regular Discharge Activity: Slowly Increase Activity Referrals: KELLI MOSS CNM [NO LOCAL MD] - Follow up as needed Prescriptions: Fluticasone Propion/Salmeterol [Advair HFA 115-21 mcg Inhaler] 2 puff IH Q12 #2 inhaler Prednisone [Deltasone 20 mg Tablet] 40 mg PO DAILY #6 tablet Home Medications: Sertraline HCl 100 mg PO DAILY 08/14/19 Albuterol Sulfate [Ventolin 0.083% Neb 2.5 mg/3 mL Ampul] 2.5 mg NEB Q6HP PRN 5 Days #30 vial.neb 08/17/19 Cetirizine HCl [Zyrtec 10 mg Tablet] 10 mg PO DAILY 11/16/19 Fluticasone Propion/Salmeterol [Advair HFA 115-21 mcg Inhaler] 2 puff IH Q12 #2 inhaler 11/19/19 Prednisone [Deltasone 20 mg Tablet] 40 mg PO DAILY #6 tablet 11/19/19 History of Present Illiness History of Present Illness: According to admitting provider: BHAVESH CUNNINGHAM is a 24 year old female with a history of asthma who is 20 weeks who presents with worsening shortness of breath. She has not had any fevers. She has not had any known sick exposures. No abdominal pain, nausea, or vomiting. No chest pain. Primarily she is just been wheezing. She uses a nebulizer at home but was not getting enough relief. She said that this was going on for a few days and got worse yesterday evening. In the ER she was actually hypoxic and was on up to 4 L of oxygen. She had a leukocytosis but she also got 125 milligrams of Solu-Medrol en route via EMS. She had possible slight pulmonary edema on chest x-ray and is being tested for coronavirus. Hospital Course Hospital Course: Patient presented to the hospital with complaints of shortness of breath. On ex amination she was noted to have significant wheezing. Vital signs was notable for respiratory distress as patient was tachypneic and she had acute hypoxic respiratory failure and patient initially required oxygen supplementation as her SPO2 dropped to 90% which is quite hypoxic for patient's age. Patient was tested for COVID-19 which came back negative. Leukocytosis was noted on her blood work and she was started empirically on antibiotics with ceftriaxone. Chest x-ray showed mostly clear lungs but did have a little bit of granular opacities in the lower right lung suggestive of pneumonitis which is uncertain at this point. Patient received antibiotics for 4 days. I have discontinued antibiotics at this time of discharge. Patient does not have a pneumonia. She was treated for acute asthma exacerbation with frequent nebulizer treatments and IV steroids. She was switched to p.o. prednisone yesterday. Patient was weaned off oxygen yesterday and her SPO2 has maintained at or above 94%. Patient states that she has had about 3 exacerbations with 2-3 hospitalizations over the past 1 year, I will be discharging patient on a controller/maintenance inhaler Advair as well as 3 more days of prednisone. Patient is doing a lot better today and ready to go home. She ambulated without difficulty or respiratory distress. She states she has her albuterol inhaler and her rescue nebulizer solution and machine at home. She has been instructed to follow-up with her primary care provider within 2 weeks. Physical Exam Vital Signs: Temp Pulse Resp BP Pulse Ox 97.6 F 68 16 100/51 L 96 11/19/19 07:05 11/19/19 08:07 11/19/19 08:07 11/19/19 07:05 11/19/19 08:07 Pulse Oximeter Continuous Start: 11/17/19 15:39 Freq: RTQ4 Status: Active Protocol: Document 11/19/19 08:07 SANCHEZ (Rec: 11/19/19 08:08 [email or web address] [id number]) Pulse Oximetry Assessment Oxygen Saturation (92-100) 96 Oxygen Delivery Method Room Air Fraction of Inspired Oxygen (FIO2) 21 Equipment Usage Equipment in Use Continuous SpO2 Machine # 7 Intake & Output 11/18/19 11/19/19 11/20/19 06:59 06:59 06:59 Intake Total 1810 1500 Balance 1810 1500 Weight 75.5 kg 75.3 kg General appearance: PRESENT: no acute distress, cooperative Neck exam: ABSENT: JVD Respiratory exam: PRESENT: symmetrical, unlabored, wheezes - Present but improved. ABSENT: accessory muscle use, retraction, tachypnea Cardiovascular exam: PRESENT: RRR, +S1, +S2. ABSENT: tachycardia GI/Abdominal exam: PRESENT: soft. ABSENT: rebound, rigid, tenderness Neurological exam: PRESENT: alert, awake, oriented to person, oriented to place, oriented to time, oriented to situation Results Laboratory Results: WBC 14.0 10^3/uL (4.0-10.5) H 11/19/19 05:58 RBC 4.34 10^6/uL (3.72-5.28) 11/19/19 05:58 Hgb 12.5 g/dL (12.0-15.5) 11/19/19 05:58 Hct 37.4 % (36.0-47.0) 11/19/19 05:58 MCV 86 fl (80-97) 11/19/19 05:58 MCH 28.9 pg (27.0-33.4) 11/19/19 05:58 MCHC 33.5 g/dL (32.0-36.0) 11/19/19 05:58 RDW 14.2 % (11.5-14.0) H 11/19/19 05:58 Plt Count 262 10^3/uL (150-450) 11/19/19 05:58 Lymph % (Auto) Not Reportable 11/16/19 00:56 Polk % (Auto) Not Reportable 11/16/19 00:56 Eos % (Auto) Not Reportable 11/16/19 00:56 Baso % (Auto) Not Reportable 11/16/19 00:56 Absolute Neuts (auto) Not Reportable 11/16/19 00:56 Absolute Lymphs (auto) Not Reportable 11/16/19 00:56 Absolute Monos (auto) Not Reportable 11/16/19 00:56 Absolute Eos (auto) Not Reportable 11/16/19 00:56 Absolute Basos (auto) Not Reportable 11/16/19 00:56 Total Counted 100 11/16/19 00:56 Seg Neutrophils % Not Reportable 11/16/19 00:56 Seg Neuts % (Manual) 96 % (42-78) H 11/16/19 00:56 Lymphocytes % (Manual) 4 % (13-45) L 11/16/19 00:56 Monocytes % (Manual) 0 % (3-13) L 11/16/19 00:56 Eosinophils % (Manual) 0 % (0-6) 11/16/19 00:56 Basophils % (Manual) 0 % (0-2) 11/16/19 00:56 Abs Neuts (Manual) 18.8 10^3/uL (1.7-8.2) H 11/16/19 00:56 Abs Lymphs (Manual) 0.8 10^3/uL (0.5-4.7) 11/16/19 00:56 Abs Monocytes (Manual) 0.0 10^3/uL (0.1-1.4) L 11/16/19 00:56 Absolute Eos (Manual) 0.0 10^3/uL (0.0-0.6) 11/16/19 00:56 Abs Basophils (Manual) 0.0 10^3/uL (0.0-0.2) 11/16/19 00:56 Platelet Comment ADEQUATE 11/16/19 00:56 RBC Morph Comment NORMO-CYTIC/CHROMIC 11/16/19 00:56 Carbonic Acid 0.76 mmol/L (1.05-1.35) L 11/15/19 22:55 HCO3/H2CO3 Ratio 22:1 11/15/19 22:55 ABG pH 7.44 (7.35-7.45) 11/15/19 22:55 ABG pCO2 25.2 mmHg (35-45) L 11/15/19 22:55 ABG pO2 90.3 mmHg (80-100) 11/15/19 22:55 ABG HCO3 16.8 mmol/L (20-24) L 11/15/19 22:55 ABG Total CO2 17.6 mmol/L (21-25) L 11/15/19 22:55 ABG O2 Saturation 97.3 % (94-98) 11/15/19 22:55 ABG Base Excess -5.5 mmol/L 11/15/19 22:55 FiO2 36% 11/15/19 22:55 Sodium 135.2 mmol/L (137-145) L 11/18/19 07:45 Potassium 4.4 mmol/L (3.6-5.0) 11/18/19 07:45 Chloride 106 mmol/L (98-107) 11/18/19 07:45 Carbon Dioxide 24 mmol/L (22-30) 11/18/19 07:45 Anion Gap 5 (5-19) 11/18/19 07:45 BUN 9 mg/dL (7-20) 11/18/19 07:45 Creatinine 0.47 mg/dL (0.52-1.25) L 11/18/19 07:45 Est GFR ( Amer) > 60 (>60) 11/18/19 07:45 Est GFR (MDRD) Non-Af > 60 (>60) 11/18/19 07:45 Glucose 96 mg/dL (75-110) 11/18/19 07:45 Calcium 9.1 mg/dL (8.4-10.2) 11/18/19 07:45 Total Bilirubin 0.6 mg/dL (0.2-1.3) 11/16/19 00:56 Direct Bilirubin 0.1 mg/dL (0.0-0.4) 11/16/19 00:56 Neonat Total Bilirubin Not Reportable 11/16/19 00:56 Neonat Direct Bilirubin Not Reportable 11/16/19 00:56 Neonat Indirect Bili Not Reportable 11/16/19 00:56 AST 18 U/L (14-36) 11/16/19 00:56 ALT 11 U/L (<35) 11/16/19 00:56 Alkaline Phosphatase 98 U/L (38-126) 11/16/19 00:56 NT-Pro-B Natriuret Pep 52 pg/mL (<125) 11/16/19 00:56 Total Protein 7.1 g/dL (6.3-8.2) 11/16/19 00:56 Albumin 3.9 g/dL (3.5-5.0) 11/16/19 00:56 COVID-19 Source NASOPHARYNGEAL 11/16/19 00:56 COVID-19 ([place]) NOT DETECTED 11/16/19 00:56 11/16/19 00:56 NT-Pro-B Natriuret Pep 52 Impressions: Chest X-Ray 11/15/19 22:47 IMPRESSION: Small hazy opacities of bilateral infrahilar lung nunes may indicate pneumonitis or subacute pulmonary edema. Plan Time Spent: Less than 30 Minutes Stroke Is this a Stroke Patient?: No Acute Heart Failure - Is this a Heart Failure Patient?: No
[2019-11-19 10:35] VITALS: BP 118/54
== END 2019-11-19 12:17 | disposition home or self-care (01) | DRG 831 ==
LOC: ER 21:49 → EH 11-16 02:32 → 3N 11-16 04:32 → 2S 11-17 14:29
PROVIDERS: ADMIT Family Medicine; ATTEND Internal Medicine
DX: O99.512 Diseases of the respiratory system complicating pregnancy, second trimester (principal); J96.01 Acute respiratory failure with hypoxia; J45.51 Severe persistent asthma with (acute) exacerbation; Z20.828 Contact with and (suspected) exposure to other viral communicable diseases; Z3A.20 20 weeks gestation of pregnancy; Z87.891 Personal history of nicotine dependence
CPT/HCPCS: 36415; 36600; 71045; 80048; 80053; 82803; 83880; 85025; 85027; 87635; 94640; 94762; 96365; 96366; 96368; 99291; C9803; J0696; J2920; J3475; J3490; J7512

== ENCOUNTER 2020-03-23 10:07 | Inpatient (IN) | payer MEDICAID ==
[2020-03-23] MEDS ORDERED: RINGERS SOLUTION,LACTATED 1,000 ML IV ONE (10:51)
[2020-03-23] MEDS ORDERED: RINGERS SOLUTION,LACTATED 1,000 ML IV PRN ×2 (10:51→15:06)
[2020-03-23] MEDS ORDERED: PENICILLIN G POTASSIUM 5,000,000 UNIT in DEXTROSE 5%-WATER 100 ML IV ONE (10:51)
[2020-03-23] MEDS ORDERED: OXYTOCIN 10 UNIT/ML VIAL ONE ×2 (11:01→13:36)
[2020-03-23] MEDS ORDERED: OXYTOCIN/0.9 % SODIUM CHLORIDE 0 UNIT/0 ML RTUINJ ONE (11:01)
[2020-03-23] MEDS ORDERED: MISOPROSTOL 0.2 MG TABLET ONE (11:01)
[2020-03-23] MEDS ORDERED: LIDOCAINE 1% INJ-PF (10 MG/ML) 30 ML SDV ONE (11:01)
[2020-03-23] MEDS ORDERED: PENICILLIN G-K 5 MILLION UNIT VIAL ONE (11:01)
[2020-03-23] MEDS ORDERED: ALBUTEROL SULFATE HFA (90 MCG/PUFF) 8 GM MDI IH PRN (11:26)
--- NOTE | 2020-03-23 11:33 | Admission Physical ---
Datetime Report Generated by CPN: 03/23/2020 11:33 CURRENT ADMISSION Chief Complaint: Uterine Contractions Indication for Induction: Not Applicable Indication for Induction- Other: Previous child c/section for malpresentation (arm and shoulder presenting parts) Admit Impression : Term, Intrauterine ; Active Labor; Admit Impression- Other: counseled on r/b/alternatives for . Patient would like to attempt . voiced understanding of low threshold for repeat c/section being performed. Admit Plan: Admit to Unit; Initiate Protocol ALLERGIES Medication Allergies: No Medication Allergies: No Known Allergies (08/16/2016) Latex: No Latex Allergies OBSTETRICAL HISTORY EDC: 03/30/2020 00:00 : 2 Para: 1 Term: 1 : 0 SAB: 0 IAB: 0 Ectopic: 0 Livin Cesareans: 1 VBACs: 0 Multiple Births: 0 Gestational Diabetes: No Rh Sensitization: No Incompetent Cervix: No WONG: No Infertility: No ART Treatment: No Uterine Anomaly: No IUGR: No Hx Previous C/S: Yes Macrosomia: No Hx Loss/Stillborn: No PIH: No Hx : No Placenta Previa/Abruption: No Depression/PP Depression: Yes PTL/PROM: No Post Hemorrhage: No Current Procedures: Ultrasound Obstetrical History Comments: G1- c/s 41wks arm presentation G2- current SEE RECORDS Alcohol: No Marijuana : No Cocaine: No Other Illicit Drugs: No Cigarettes: Former Smoker. [id number] Cigarette Comments: quit during first trimester MEDICAL HISTORY Diabetes: No Blood Transfusion: No Pulmonary Disease (Asthma, TB): Yes Breast Disease: No Hypertension: No Manager Of Medical Surgery: No Heart Disease: No Hosp/Surgery: Yes Autoimmune Disorder: No Anesthetic Complications: No Kidney Disease: No Abnormal Pap Smear: Yes Neuro/Epilepsy: No Psychiatric Disorders: Yes Other Medical Diseases: No Hepatitis/Liver Disease: No Significant Family History: No Varicosities/Phlebitis: No Trauma/Violence : No Thyroid Dysfunction: No Medical History Comments: c/s, admitted to hospital d/t asthma 12/2019, ascus pap, depression- zoloft, anxiety, INFECTIOUS HISTORY Gonorrhea: No Genital Herpes: No Chlamydia: No Tuberculosis: No Syphilis: No Hepatitis: No HIV/AIDS Exposure: No Rash or Viral Illness: No HPV: No PHYSICAL EXAM General: Normal HEENT: Normal Neurologic: Normal Thyroid: Normal Heart: Normal Lungs: Normal Breast: Normal Back: Normal Abdomen: Normal Genitourinary Exam: Normal Extremities: Normal DTRs: Normal Pelvic Type: Adequate Vital Signs: Reviewed; Within Normal Limits VAGINAL EXAM Dilatation: 3 Effacement: 75 Station: -1 MEMBRANES Pooling: Negative Membranes: Intact FETUS A EGA: 39.0 Monitoring: External US FHR- Baseline: 140 Variability: Moderate 6-25bpm Accelerations: 15X15 Decelerations: None FHR Category: Category I Estimated Weight (gm): 3200 Presentation: Vertex PLANS FOR LABOR AND DELIVERY Labor and Delivery: None Pain Management: Epidural; Spinal Feeding Preference: Formula Circumcision: Yes INFORMED CONSENT Signature: with User ID: [email or web address]
[2020-03-23 11:48] LABS: ABSOLUTE EOSINOPHILS # (AUTO) 0.4 10^3/uL (0.0-0.6); ABSOLUTE LYMPHOCYTES (AUTO) 2.4 10^3/uL (0.5-4.7); ABSOLUTE MONOCYTES (AUTO) 0.3 10^3/uL (0.1-1.4); ABSOLUTE NEUT (AUTO) 7.7 10^3/uL (1.7-8.2); BASOPHILS % (AUTO) 0.4 % (0-2); HEMATOCRIT 34.4 % (36.0-47.0); HEMOGLOBIN 11.7 g/dL (12.0-15.5); LYMPHOCYTES % (AUTO) 22.1 % (13-45); MEAN CORPUSCULAR HEMOGLOBIN 26.9 pg (27.0-33.4); MEAN CORPUSCULAR HGB CONC 34.1 g/dL (32.0-36.0); MEAN CORPUSCULAR VOLUME 79 fl (80-97); MONOCYTES % (AUTO) 2.6 % (3-13); PLATELET COUNT 226 10^3/uL (150-450); RED BLOOD COUNT 4.37 10^6/uL (3.72-5.28); RED CELL DISTRIBUTION WIDTH 13.4 % (11.5-14.0); SEGMENTED NEUTROPHILS % (AUTO) 70.9 % (42-78); TOTAL CELLS COUNTED % (AUTO) 100 %; WHITE BLOOD COUNT 10.8 10^3/uL (4.0-10.5)
[2020-03-23 12:17] LABS: APPEARANCE,URINE SLIGHTLY-CLOUDY; BILIRUBIN,URINE NEGATIVE (NEGATIVE); COLOR,URINE YELLOW; GLUCOSE, URINE NEGATIVE (NEGATIVE); KETONES,URINE NEGATIVE (NEGATIVE); LEUKOCYTE ESTERASE,URINE SMALL (NEGATIVE); NITRITE,URINE NEGATIVE (NEGATIVE); PROTEIN,URINE 30 mg/dL (NEGATIVE); URINE SPECIFIC GRAVITY 1.018
[2020-03-23] MEDS ORDERED: FENTANYL CITRATE INJ/PF 100 MCG/2 ML AMPUL ONE ×2 (12:45→13:36)
[2020-03-23] MEDS ORDERED: FENTANYL CITRATE INJ/PF 100 MCG/2 ML AMPUL IV ONE (12:47)
[2020-03-23 12:48] LABS: URINE AMPHETAMINES SCREEN NEGATIVE; URINE BARBITURATES SCREEN NEGATIVE; URINE BENZODIAZEPINES SCREEN NEGATIVE; URINE COCAINE SCREEN NEGATIVE; URINE MARIJUANA (THC) SCREEN NEGATIVE; URINE METHADONE SCREEN NEGATIVE; URINE PHENCYCLIDINE SCREEN NEGATIVE
[2020-03-23] MEDS ORDERED: CEFAZOLIN SODIUM 1 GM in DEXTROSE 5%-WATER 50 ML IV PRN (13:08)
[2020-03-23] MEDS ORDERED: CITRIC ACID/SODIUM CITRATE ORAL SOLN 15 ML UDCUP ONE (13:24)
[2020-03-23] MEDS ORDERED: METHYLERGONOVINE MALEATE INJ/PF 0.2 MG/1 ML AMPULE ONE ×2 (13:24→13:37)
[2020-03-23] MEDS ORDERED: CEFAZOLIN 2 GM/D5W RTU 0 GM/0 ML RTUPB IV ONE (13:24)
[2020-03-23] MEDS ORDERED: CEFAZOLIN 1 GM/D5W RTU 1 GM/50 ML RTUPB IV ONE (13:33)
[2020-03-23] MEDS ORDERED: EPHEDRINE SULFATE INJ 50 MG/1 ML AMPULE ONE (13:36)
[2020-03-23] MEDS ORDERED: KETOROLAC TROMETHAMINE INJ/PF 30 MG/1 ML SDV ONE (13:36)
[2020-03-23] MEDS ORDERED: PHENYLEPHRINE HCL INJ/PF 10 MG/1 ML SDV ONE (13:36)
[2020-03-23] MEDS ORDERED: ACETAMINOPHEN 1,000 MG/100 ML RTUPB IV ONE (13:37)
[2020-03-23] MEDS ORDERED: ONDANSETRON HCL INJ/PF 4 MG/2 ML SDV ONE (13:37)
[2020-03-23] MEDS ORDERED: MIDAZOLAM 2 MG/2 ML INJ ONE (13:37)
[2020-03-23] MEDS ORDERED: MORPHINE SULFATE 10 MG/ML INJ IV PRN ×2 (14:35→15:06)
[2020-03-23] MEDS ORDERED: OXYCODONE-ACETAMINOPHEN 5-325 MG TABLET PO PRN ×3 (14:35→15:06)
[2020-03-23] MEDS ORDERED: MEPERIDINE HCL/PF INJ 25 MG/1 ML DISP.SYRIN IV PRN (14:35)
[2020-03-23] MEDS ORDERED: DIPHENHYDRAMINE HCL 50 MG/ML VIAL IV PRN (14:35)
[2020-03-23] MEDS ORDERED: PROMETHAZINE HCL INJ 25 MG/1 ML VIAL IV PRN ×3 (14:35→15:06)
[2020-03-23] MEDS ORDERED: ONDANSETRON HCL INJ/PF 4 MG/2 ML SDV IV PRN (14:35)
[2020-03-23] MEDS ORDERED: FENTANYL CITRATE INJ/PF 100 MCG/2 ML AMPUL IV PRN ×3 (14:35)
[2020-03-23] MEDS ORDERED: PENICILLIN G POTASSIUM 2,500,000 UNIT in DEXTROSE 5%-WATER 50 ML IV SCH (14:52)
[2020-03-23] MEDS ORDERED: OXYTOCIN/0.9 % SODIUM CHLORIDE 30 UNIT/500 ML RTUINJ IV PRN (15:06)
[2020-03-23] MEDS ORDERED: DIPH/PERTUSS(ACELL)/TETANUS VAC/PF 0.5 ML SYR (>=10YO) IM PRN (15:06)
[2020-03-23] MEDS ORDERED: ACETAMINOPHEN 325 MG TABLET PO PRN (15:06)
[2020-03-23] MEDS ORDERED: MEASLES,MUMPS&RUBELLA VACC/PF 0.5 ML VIAL SUBCUT PRN (15:06)
[2020-03-23] MEDS ORDERED: ACETAMINOPHEN 1,000 MG/100 ML RTUPB IV PRN (15:06)
--- NOTE | 2020-03-23 15:14 | Operative Report ---
Operative Report DATE OF SURGERY: 03/23/20 PREOPERATIVE DIAGNOSIS: IUP at 39 weeks and 0 days, previous , undesir ed fertility, presents in labor POSTOPERATIVE DIAGNOSIS: Same OPERATION: Repeat low transverse hysterotomy section with Gaston bilateral tubal ligation SURGEON: LING MIR ANESTHESIA: Spinal COMPLICATIONS: None ESTIMATED BLOOD LOSS: 750 cc INTRAOPERATIVE FINDINGS: Male infant cephalic presentation Apgars of 7 and 8, Kiwi used x2 pop-off's secondary to difficulty with delivery PROCEDURE: The patient was taken to the operating room, prepared and draped in anormal sterile fashion in a supine position with a leftward tilt. A transverse skin incision was made with a scalpel and carried through tothe underlying layer of fascia with the same scalpel. The fascia was excised in the midline and extended laterally with Karlos. The fascia was then dissected from the rectus muscle sharply with Karlos and the rectus muscle was divided and the peritoneal cavity was entered sharply with the same Metzenbaum. With good visualization of the bladder and the uterus the bladder blade was inserted. The hysterotomy was nicked with a scalpel and extended laterally with surgeon finger fraction. Attempts at delivering the infant were unsuccessful due to tightening of the muscles and possibly an inadequate extension of incision , therefore bandage scissors were used to extend the uterine incision and when this proved to be unfruitful the rectus muscles were divided using the bandage scissors , the fascia was then extended with the bandage scissors and the skin was extended with a scalpel . Used x2 pop-off's with 65 mmHg applied . The infant was then delivered we had difficulty with delivery of the shoulders but was able to manipulate the shoulders through the uterine incision and path and then get the fetus out of the uterus . The nose and mouth were suctioned with a suction bulb, the cord was clamped and cut and handed off to awaiting pediatricians. Cord blood was collected. The placenta was removed manually. The uterus was exteriorized and cleared of clots and debris. The hysterotomy was closed with 0 Monocryl in a running, locked fashion. A second layer of the same suture was used to imbricate to ensure hemostasis. Attention was then turned to the fallopian tubes where the right fallopian tube was grasped with a Volga, the mesosalpinx was divided with a Bovie. a 3-1/2 cm segment of fallopian tube was tied off with 2 pieces of 2-0 chromic.this segment was ligated using Metzenbaums and the pedicles were made hemostatic with the Bovie. This procedure was repeated on the left fallopian tube without difficulty. The uterus was returned to the abdomen and peritoneal cavity was cleared of clots and debris. The pedicles were inspected and they were still hemostatic. The rectus muscle and peritoneum were repaired with mattress stitch of 2-0 Chromic. The fascia was closed with 0-Vicryl. The subcutaneous layer was closed with plain catgut and the skin was closed with 4-0 Vicryl. The patient tolerated the procedure well. Sponge, lap, and needle counts correct x2 and the patient was taken to recovery in stable condition.
--- NOTE | 2020-03-23 15:55 | Warning Signs in Babies ---
VOD Warning Signs Datetime Report Generated by [facility]: 03/23/2020 15:55 VOD#[id number] -Warning Signs in Babies: Needs to be viewed. (03/23/2020 10:02:Jocelyn Amor RN)
[2020-03-23 16:59] LABS: ABSOLUTE EOSINOPHILS # (AUTO) 0.3 10^3/uL (0.0-0.6); ABSOLUTE LYMPHOCYTES (AUTO) 2.6 10^3/uL (0.5-4.7); ABSOLUTE MONOCYTES (AUTO) 0.3 10^3/uL (0.1-1.4); ABSOLUTE NEUT (AUTO) 9.2 10^3/uL (1.7-8.2); BASOPHILS % (AUTO) 0.2 % (0-2); EOSINOPHILS % (AUTO) 2.3 % (0-6); HEMATOCRIT 30.2 % (36.0-47.0); HEMOGLOBIN 10.1 g/dL (12.0-15.5); MEAN CORPUSCULAR HGB CONC 33.5 g/dL (32.0-36.0); MEAN CORPUSCULAR VOLUME 81 fl (80-97); MONOCYTES % (AUTO) 2.1 % (3-13); PLATELET COUNT 221 10^3/uL (150-450); RED BLOOD COUNT 3.75 10^6/uL (3.72-5.28); RED CELL DISTRIBUTION WIDTH 13.3 % (11.5-14.0); SEGMENTED NEUTROPHILS % (AUTO) 74.4 % (42-78); TOTAL CELLS COUNTED % (AUTO) 100 %; WHITE BLOOD COUNT 12.3 10^3/uL (4.0-10.5)
[2020-03-23 17:10] LABS: INTERNATIONAL RATION (INR) 0.97; PROTHROMBIN TIME 13.1 SEC (11.4-15.4)
[2020-03-23 17:11] LABS: PARTIAL THROMBOPLASTIN TIME 28.3 SEC (23.5-35.8)
--- NOTE | 2020-03-23 17:25 | Birth Certificate Data ---
Cert Data Datetime Report Generated by CPN: 03/23/2020 17:24 CERTIFICATE DATA Delivery Provider: Katie White MD (03/23/2020 13:22:Jocelyn Amor RN) 47a. Care: Yes (03/23/2020 10:02:Loly Cooper RN) 47b. Date of First Visit: 10/11/2019 00:00 (03/23/2020 10:02:Loly Cooper RN) 47c. Date of Last Visit: 03/20/2020 00:00 (03/23/2020 10:02:Loly Cooper RN) 47d. Number of Visits: 9 (03/23/2020 10:02:Loly Cooper RN) 48a. Number of Prev Live Births: 1 (03/23/2020 10:02:Loly Cooper RN) 48b. Now Livin (03/23/2020 10:02:Loly Cooper RN) 48c. Live Births Now : 0 (03/23/2020 10:02:QS system process) 48d. Date of Last Live : 06/08/2016 00:00 (03/23/2020 10:02:Loly Cooper RN) 48e. Losses: 0 (03/23/2020 10:02:Loly Cooper RN) RISK FACTORS IN THIS 49a. Diabetes: No (03/23/2020 10:02:Jocelyn Amor RN) 49b. Hypertension: No (03/23/2020 10:02:Jocelyn Amor RN) 49c. Previous Births: 0 (03/23/2020 10:02:Loly Cooper RN) 49d. Stillborns: No (03/23/2020 10:02:Jocelyn Amor RN) 49d. IUGR: No (03/23/2020 10:02:Jocelyn Amor RN) 49e. Infertility Treatment: No (03/23/2020 10:02:Jocelyn Amor RN) 49f. Previous Cesareans: 1 (03/23/2020 10:02:Loly Cooper RN) Mother's Height 50b. Height Inches: 61 (03/23/2020 15:32:QS system process) Mother's Weight 51a. Pre- Weight (lbs): 163 (03/23/2020 10:02:Loly Cooper RN) 51b. Weight at Delivery (lbs): 185 (03/23/2020 15:32:QS system process) 52. Dt Last Normal Menses Began: 06/03/2019 00:00 (03/23/2020 10:02:Loly Cooper RN) Infections Present/Treated 53a. Gonorrhea: No (03/23/2020 10:02:Loly Cooper RN) Results this Hospital Visit : Negative (03/23/2020 10:02:Jocelyn Amor RN) 53b. Syphilis: No (03/23/2020 10:02:Loly Cooper RN) 53c. Chlamydia: No (03/23/2020 10:02:Loly Cooper RN) Results this Hospital Visit: Negative (03/23/2020 10:02:Jocelyn Amor RN) 53d. Hepatitis B: No (03/23/2020 10:02:Loly Cooper RN) Results this Hospital Visit: Negative (03/23/2020 10:02:Jocelyn Amor RN) 53e. Hepatitis C: Negative (03/23/2020 10:02:Jocelyn Amor RN) 53h. Mother Tested for HBsAG: Yes (03/23/2020 10:02:Jocelyn Amor RN) 53i. Date Tested: 10/10/2019 00:00 (03/23/2020 10:02:Jocelyn Amor RN) 53j. Test Result: Negative (03/23/2020 10:02:Jocelyn Amor RN) Obstetric Procedures 54a, b, c. Obstetric Procedures: Ultrasound (03/23/2020 10:02:Loly Cooper RN) Cigarette Smoking Cigarette Smoking: Former Smoker. [id number] (03/23/2020 10:02:Jocelyn Amor RN) 55a. Packs: 2 (03/23/2020 10:02:Jocelyn Amor RN) 55b. Packs: 2 (03/23/2020 10:02:Jocelyn Amor RN) Onset of Labor 56a. PROM >12 Hrs: 0.08 (03/23/2020 10:02:QS system process) 57a. Induction of Labor: N/A (03/23/2020 10:02:Alena Valentin RN) 57c. Non-Vertex Presentation A: Vertex (03/23/2020 10:02:Loly Cooper RN) 57d. Steroids - Lung Mat: None (03/23/2020 10:02:Alena Valentin RN) 57d. Steroids - Lung Mat: Not Applicable (03/23/2020 10:02:Alena Valentin RN) 57f. Mat Ch[place] or Temp >100.4: 98.1 (03/23/2020 10:02:Jocelyn Amor RN) 57g. Moderate/Heavy Meconium: Clear (03/23/2020 10:02:Jocelyn Amor RN) 57h. Intolerance of Labor: Repeat Elective (03/23/2020 10:02:Alena Valentin RN) 57i. Epidural/Spinal Anesthesia: None (03/23/2020 10:02:Alena Valentin RN) Method of Delivery 58a. Forceps - Unsuccessful A: N/A (03/23/2020 10:02:Loly Cooper RN) 58b. Vacuum - Unsuccessful A: Successful (03/23/2020 10:02:Jocelyn Amor RN) 58c. Presentation at 58c. Presentation at - A : Vertex (03/23/2020 10:02:Loly Cooper RN) 58c. Presentation at - A : N/A (03/23/2020 10:02:Loly Cooper RN) 58c. Presentation at - A : Cephalic (03/23/2020 10:23:Jocelyn Amor RN) Final Route and Method of Del 58d. Baby A Route/Delivery: (03/23/2020 10:02:Loly Cooper RN) 58e. Trial of Labor Attempted: No (03/23/2020 10:02:Alena Valentin RN) 58e. Trial of Labor Attempted A: N/A (03/23/2020 10:02:Alena Valentin RN) 58e. Trial of Labor Attempted B: N/A (03/23/2020 10:02:Alena Valentin RN) Maternal Morbidity 59b. 3rd or 4th Degree Lacs: None (03/23/2020 10:02:Alena Valentin RN) Birthweight Baby A: 3370 (03/23/2020 10:02:Meg Ahumada RN) 60a. Pounds : 7 (03/23/2020 10:02:QS system process) 60b. Ounces: 7 (03/23/2020 10:02:QS system process) 61. GA at Delivery Baby A: 39.0 (03/23/2020 10:02:Loly Cooper RN) : Full Term- 39- 40.6 Weeks (03/23/2020 10:02:QS system process) 62a. 5 Minute Baby A: 9 (03/23/2020 10:02:QS system process)
--- NOTE | 2020-03-23 17:25 | Delivery Summary ---
Del Sum A-C Datetime Report Generated by CPN: 03/23/2020 17:24 DELIVERY PERSONNEL DELIVERY PERSONNEL: [id number] Delivery Doctor:: Katie White MD DOPE AND FABRIC WORKER:: Johanny Alston CRNA Density Control Puncher:: Jocelyn Amor RN Neonatal Nurse Practitioner:: JANIA Genao Nursery Nurse:: Meg Quispe RN Correctional Therapy Director/SHARPLES MACHINE OPERATOR: [facility] Correctional Therapy Director/SHARPLES MACHINE OPERATOR: Aleshia Bridges, PRINTING MANAGER MATERNAL INFORMATION Delivery Anesthesia: Spinal Medications After Delivery: Pitocin Bolus-Please Comment; Cytotec 1000mcg Per Rectum/Vagina Meds After Delivery Comment: Pitocin 40 units in NS total per DOPE AND FABRIC WORKER Delivery QBL: 855 Maternal Complications: None LABOR SUMMARY EDC: 03/30/2020 00:00 No. Babies in Womb: 1 Attempted: No Labor Anesthesia: None LABOR INFORMATION Reason for Induction: Not Applicable Oxytocin: N/A Group B Beta Strep: positive Antibiotics # of Doses: 2 Name of Antibiotic Given: ANCEF/ PCN Steroids Given: None Reason Steroids Not Administered: Not Applicable MEMBRANES Membranes Rupture Method: Artificial Rupture of Membranes: 03/23/2020 14:25 Length of Rupture (hr): 0.08 Amniotic Fluid Color: Clear Amniotic Fluid Amount: Small Amniotic Fluid Odor: Normal STAGES OF LABOR Stage 3 hr: 0 Stage 3 min: 1 VAGINAL DELIVERY Episiotomy: None Laceration #1: None Laceration Extension #1: N/A Sponge Count Correct: N/A Sharps Count Correct: N/A CSECTION DELIVERY Primary Indication: Repeat Elective CSection Urgency: Non-Scheduled CSection Incidence: Repeat Labor: Labor Elective: Elective CSection Incision: Lower Uterine Transverse Sterilization Procedure: Skyla BABY A INFORMATION Delivery Date/Time: 03/23/2020 14:30 Method of Delivery: Nurse Controlled Delivery: No Born in Route : No : N/A Forceps: N/A Vacuum Extraction: Successful Shoulder Dystocia : No ASSISTED DELIVERY BABY A Vacuum Number of Pulls: 2 Vacuum Number of PopOffs: 2 Vacuum School Treasurer: KIWI PRESENTATION/POSITION BABY A Presentation: Cephalic Cephalic Presentation: Vertex Breech Presentation: N/A PLACENTA INFORMATION BABY A Placenta Delivery Time : 03/23/2020 14:31 Placenta Method of Delivery: Manual Removal Placenta Status: Delivered SCORES BABY A Heart Rate 1 min: Slow, Below 100 bpm Resp Effort 1 min: Absent Reflex Irritability 1 min: Grimace Muscle Tone 1 min: Flaccid Color 1 min: Blue/Pale SCORE 1 MIN: 2 Heart Rate 5 min: >100 bpm Resp Effort 5 min: Good Cry Reflex Irritability 5 min: Cough or Sneeze or Pulls Away Muscle Tone 5 min: Active Motion Color 5 min: Body [place], Extremities Blue SCORE 5 MIN: 9 INFANT INFORMATION BABY A Gestational Age at Delivery: 39.0 Gestational Status: Full Term- 39- 40.6 Weeks Outcome : Liveborn Condition : Stable Sex: Male IDENTIFICATION BABY A Verification Date/Time: 03/23/2020 14:32 ID Band Number: [id number] Mother's Name Verified: Yes RN Verifying Infant: C [place] RN Additional Verifying Personnel: S. Arroyo PRINTING MANAGER WEIGHT/LENGTH BABY A Birthweight (gm): 3370 Infant Weight (lb): 7 Infant Weight (oz): 7 Length (in): 20.00 Length (cm): 50.80 CORD INFORMATION BABY A No. Cord Vessels: 3 Nuchal Cord : N/A Cord Blood Taken: Yes-For Eval (Mom's Blood Type - or O+) Suction: Mouth; Nose ASSESSMENT BABY A Complications: None Skin to Skin: No Grill Attendant/ALS Called : Yes Care By: J QUISPE RN Transferred To: [facility] BABY B INFORMATION : N/A
[2020-03-23] MEDS: OXYCODONE-ACETAMINOPHEN 5-325 MG TABLET PO PRN (18:33)
[2020-03-23] MEDS: DOCUSATE SODIUM 100 MG CAPSULE PO SCH (18:55)
[2020-03-23] MEDS: IBUPROFEN 800 MG TABLET PO SCH (18:56)
[2020-03-23] MEDS: KETOROLAC TROMETHAMINE INJ/PF 30 MG/1 ML SDV IV SCH (22:59)
[2020-03-23] MEDS: SIMETHICONE 80 MG TAB.CHEW PO PRN (23:13)
[2020-03-24] MEDS: IBUPROFEN 800 MG TABLET PO SCH ×5 (00:10→23:46)
[2020-03-24] MEDS: KETOROLAC TROMETHAMINE INJ/PF 30 MG/1 ML SDV IV SCH (05:09)
[2020-03-24] MEDS: OXYCODONE-ACETAMINOPHEN 5-325 MG TABLET PO PRN ×2 (05:09→09:33)
[2020-03-24] MEDS: SIMETHICONE 80 MG TAB.CHEW PO PRN ×2 (05:09→23:48)
[2020-03-24 06:50] LABS: HEMOGLOBIN 10.2 g/dL (12.0-15.5); MEAN CORPUSCULAR HEMOGLOBIN 26.9 pg (27.0-33.4); MEAN CORPUSCULAR VOLUME 79 fl (80-97); PLATELET COUNT 194 10^3/uL (150-450); RED CELL DISTRIBUTION WIDTH 13.7 % (11.5-14.0); WHITE BLOOD COUNT 10.2 10^3/uL (4.0-10.5)
[2020-03-24] MEDS: DOCUSATE SODIUM 100 MG CAPSULE PO SCH ×2 (09:33→17:53)
[2020-03-24] MEDS: PRENATAL VITAMIN W DHA CAPSULE PO SCH (09:33)
--- NOTE | 2020-03-24 14:26 | PDOC PROGRESS REPORT ---
Subjective-OB Progress Note for:: 03/24/20 Subjective: Pt doing well, no complaints. She is resting, bleeding is stable. Voiding w/o difficulty, reports reg diet and + flatus. Physical Exam (OB) Vital Signs: Temp Pulse Resp BP Pulse Ox 97.6 F 73 18 109/80 98 03/24/20 11:08 03/24/20 11:08 03/24/20 11:08 03/24/20 11:08 03/24/20 11:08 Intake & Output 03/23/20 03/24/20 03/25/20 06:59 06:59 06:59 Intake Total 3300 Output Total 1850 700 Balance -1850 2600 Weight 83.9 kg - PIH/Pre-Eclampsia Clonus: Negative Headache: Absent Epigastric Pain: No Visual Changes: No - Dressing Removed: No Incision: Well Approximated Closure Type: Surgical Glue - Maternal Morbidity 59. Maternal Morbidity (serious complications experinced by the mother associated with labor and delivery: None of the above - Lochia Lochia Amount: Scant < 10 ml Lochia Color: Rubra/Red - Abdomen Description: Soft, Round Hernia Present: No Fundal Description: Firm, Midline Fundal Height: u/u - u/2 Objective-Diagnostic Laboratory: 03/24/20 06:30 03/23/20 03/23/20 03/24/20 11:30 16:45 06:30 WBC 12.3 H 10.2 RBC 3.75 3.80 Hgb 10.1 L 10.2 L Hct 30.2 L 30.0 L MCV 81 79 L MCH 27.0 26.9 L MCHC 33.5 34.0 RDW 13.3 13.7 Plt Count 221 194 Seg Neutrophils % 74.4 Blood Type A NEGATIVE Antibody Screen POSITIVE 03/24/20 06:30 WBC RBC Hgb Hct MCV MCH MCHC RDW Plt Count Seg Neutrophils % Blood Type A NEGATIVE Antibody Screen Assessment and Plan(PN) - Assessment and Plan (1) Status post primary low transverse section Is this a current diagnosis for this admission?: Yes - Time Spent with Patient Time with patient: Less than 15 minutes Medications reviewed and adjusted accordingly: Yes - Disposition Anticipated Discharge Disposition: Home, Self Care Anticipated Discharge Timeframe: within 24 hours
[2020-03-25] MEDS: IBUPROFEN 800 MG TABLET PO SCH ×2 (05:16→11:29)
[2020-03-25] MEDS: OXYCODONE-ACETAMINOPHEN 5-325 MG TABLET PO PRN (05:19)
--- NOTE | 2020-03-25 06:58 | RADIOLOGY REPORT (SQ) ---
CHEST X-RAY 1 VIEW on 03/25/2020 at 6:20 AM CLINICAL INDICATION: Right rib pain while breathing COMPARISON: 11/15/2019 FINDINGS: The lungs are clear. There is no pneumothorax or pleural effusion. Cardiac, hilar and mediastinal contours are within normal limits. Pulmonary vascularity is within normal limits. No bony abnormality is noted. IMPRESSION: No active disease.
--- NOTE | 2020-03-25 06:58 | RADIOLOGY REPORT (SQ) ---
Abdomen x-ray single view on 03/25/2020 at 6:20 AM CLINICAL INDICATION: Right rib pain COMPARISON: None FINDINGS: Bowel gas pattern is unremarkable. No increased stool to suggest constipation is noted. No abnormal calcification or mass effect is noted. No bony abnormality is noted. IMPRESSION: Nonspecific abdomen.
[2020-03-25] MEDS: PRENATAL VITAMIN W DHA CAPSULE PO SCH (11:29)
[2020-03-25] MEDS: DOCUSATE SODIUM 100 MG CAPSULE PO SCH (11:29)
[2020-03-25 12:00] VITALS: BP 131/72
--- NOTE | 2020-03-25 12:36 | PDOC DISCHARGE SUMMARY ---
Impression - Admit/DC Date/PCP Admission Date/Primary Care Provider: 03/23/20 10:48 LING MIR MD Discharge Date: 03/25/20 - Discharge Diagnosis (1) Status post primary low transverse section Is this a current diagnosis for this admission?: Yes - Additional Information Resuscitation Status: Full Code Discharge Diet: Regular Discharge Activity: Balance Activity w/Rest, Pelvic Rest Referrals: LING MIR MD [Primary Care Provider] - Prescriptions: Oxycodone HCl/Acetaminophen [Percocet 5-325 mg Tablet] 1 tab PO Q4HP PRN #30 tablet PRN Reason: Ibuprofen [Motrin 800 mg Tablet] 800 mg PO Q8HP PRN #60 tablet PRN Reason: Home Medications: Albuterol Sulfate [Ventolin 0.083% Neb 2.5 mg/3 mL Ampul] 2.5 mg NEB Q6HP PRN 5 Days #30 vial.neb 08/17/19 Cetirizine HCl [Zyrtec 10 mg Tablet] 10 mg PO DAILY 11/16/19 Fluticasone Propion/Salmeterol [Advair HFA 115-21 mcg Inhaler] 2 puff IH Q12 #2 inhaler 11/19/19 Pnv No.103/Folic/Om3s/Fish Oil [ Gummies] 1 each PO DAILY 03/21/20 Sertraline HCl [Zoloft 50 mg Tablet] 50 mg PO DAILY 03/23/20 Ibuprofen [Motrin 800 mg Tablet] 800 mg PO Q8HP PRN #60 tablet 03/25/20 Oxycodone HCl/Acetaminophen [Percocet 5-325 mg Tablet] 1 tab PO Q4HP PRN #30 tablet 03/25/20 HPI Gestational Age: 39.0 Reason(s) for Admission: Onset of Labor Procedures: NST Intrapartum Procedure(s): Vacuum Extraction, : Low Cervical, Transverse Hospital Course 59. Maternal Morbidity (serious complications experinced by the mother associated with labor and delivery: None of the above Results Laboratory Results: WBC 10.2 10^3/uL (4.0-10.5) 03/24/20 06:30 RBC 3.80 10^6/uL (3.72-5.28) 03/24/20 06:30 Hgb 10.2 g/dL (12.0-15.5) L 03/24/20 06:30 Hct 30.0 % (36.0-47.0) L 03/24/20 06:30 MCV 79 fl (80-97) L 03/24/20 06:30 MCH 26.9 pg (27.0-33.4) L 03/24/20 06:30 MCHC 34.0 g/dL (32.0-36.0) 03/24/20 06:30 RDW 13.7 % (11.5-14.0) 03/24/20 06:30 Plt Count 194 10^3/uL (150-450) 03/24/20 06:30 Lymph % (Auto) 21.0 % (13-45) 03/23/20 16:45 [place] % (Auto) 2.1 % (3-13) L 03/23/20 16:45 Eos % (Auto) 2.3 % (0-6) 03/23/20 16:45 Baso % (Auto) 0.2 % (0-2) 03/23/20 16:45 Absolute Neuts (auto) 9.2 10^3/uL (1.7-8.2) H 03/23/20 16:45 Absolute Lymphs (auto) 2.6 10^3/uL (0.5-4.7) 03/23/20 16:45 Absolute Monos (auto) 0.3 10^3/uL (0.1-1.4) 03/23/20 16:45 Absolute Eos (auto) 0.3 10^3/uL (0.0-0.6) 03/23/20 16:45 Absolute Basos (auto) 0.0 10^3/uL (0.0-0.2) 03/23/20 16:45 Seg Neutrophils % 74.4 % (42-78) 03/23/20 16:45 PT 13.1 SEC (11.4-15.4) 03/23/20 16:45 INR 0.97 03/23/20 16:45 APTT 28.3 SEC (23.5-35.8) 03/23/20 16:45 Urine Color YELLOW 03/23/20 10:17 Urine Appearance SLIGHTLY-CLOUDY 03/23/20 10:17 Urine pH 5.0 (5.0-9.0) 03/23/20 10:17 Ur Specific [place] 1.018 03/23/20 10:17 Urine Protein 30 mg/dL (NEGATIVE) H 03/23/20 10:17 Urine Glucose (UA) NEGATIVE mg/dL (NEGATIVE) 03/23/20 10:17 Urine Ketones NEGATIVE mg/dL (NEGATIVE) 03/23/20 10:17 Urine Blood NEGATIVE (NEGATIVE) 03/23/20 10:17 Urine Nitrite NEGATIVE (NEGATIVE) 03/23/20 10:17 Urine Bilirubin NEGATIVE (NEGATIVE) 03/23/20 10:17 Urine Urobilinogen 2.0 mg/dL (<2.0) H 03/23/20 10:17 Ur Leukocyte Esterase SMALL (NEGATIVE) H 03/23/20 10:17 Urine Ascorbic Acid NEGATIVE (NEGATIVE) 03/23/20 10:17 Urine Opiates Screen NEGATIVE 03/23/20 10:17 Urine Methadone Screen NEGATIVE 03/23/20 10:17 Ur Barbiturates Screen NEGATIVE 03/23/20 10:17 Ur Phencyclidine Scrn NEGATIVE 03/23/20 10:17 Ur Amphetamines Screen NEGATIVE 03/23/20 10:17 U Benzodiazepines Scrn NEGATIVE 03/23/20 10:17 Urine Cocaine Screen NEGATIVE 03/23/20 10:17 U Marijuana (THC) Screen NEGATIVE 03/23/20 10:17 RPR NONREACTIVE (NONREACTIVE) 03/23/20 11:30 Blood Type A NEGATIVE 03/24/20 06:30 Antibody Screen POSITIVE 03/23/20 11:30 Antibody Identification RHOGAM INDUCED ANTI-D 03/23/20 11:30 Screen NEGATIVE 03/24/20 06:30 Impressions: Chest X-Ray 03/25/20 00:00 IMPRESSION: No active disease. KUB X-Ray 03/25/20 05:35 IMPRESSION: Nonspecific abdomen. Plan Plan of Treatment: f/u at [facility] on Wednesday for incision check Time Spent: Less than 30 Minutes
== END 2020-03-25 15:41 | disposition home or self-care (01) | DRG 785 ==
LOC: LC 10:07 → LR 10:48 → 2N 17:30
PROVIDERS: ADMIT Obstetrics & Gynecology; ATTEND Obstetrics & Gynecology
PROC: 10D00Z1 Extraction of Products of Conception, Low, Open Approach (ICD-10-PCS; principal; 2020-03-23)
PROC: 0UB70ZZ Excision of Bilateral Fallopian Tubes, Open Approach (ICD-10-PCS; 2020-03-23)
PROC: 3E0234Z Introduction of Serum, Toxoid and Vaccine into Muscle, Percutaneous Approach (ICD-10-PCS; 2020-03-24)
DX: O99.824 Streptococcus B carrier state complicating childbirth (principal); O34.211 Maternal care for low transverse scar from previous cesarean delivery; Z37.0 Single live birth; O99.334 Smoking (tobacco) complicating childbirth; F17.210 Nicotine dependence, cigarettes, uncomplicated; O99.52 Diseases of the respiratory system complicating childbirth; J45.909 Unspecified asthma, uncomplicated; O99.344 Other mental disorders complicating childbirth; F41.9 Anxiety disorder, unspecified; F32.9 Major depressive disorder, single episode, unspecified; Z3A.39 39 weeks gestation of pregnancy; O26.893 Other specified pregnancy related conditions, third trimester; Z67.11 Type A blood, Rh negative
CPT/HCPCS: 1961; 36415; 71045; 74018; 80307; 81005; 85025; 85027; 85461; 85610; 85730; 86592; 86850; 86870; 86900; 86901; 88302; 94760; 94799; J0131; J0690; J1885; J2210; J2250; J2370; J2405; J2540; J2590; J2790; J3010; J3490; J7060; J7120

== ENCOUNTER 2020-04-23 21:57 | Emergency (ER) | payer MEDICAID ==
--- NOTE | 2020-04-23 22:49 | ER Document Report ---
ED General - General Chief Complaint: Asthma Exacerbation Stated Complaint: TROUBLE BREATHING Time Seen by Provider: 04/23/20 22:44 Primary Care Provider: LING MIR MD [Primary Care Provider] - Follow up as needed TRAVEL OUTSIDE OF THE [place] IN LAST 30 DAYS: No - HPI Notes: 24-year-old female with history of asthma here with asthma exacerbation X2 weeks. Patient states that she initially started to improve and feel better, however for the past 3 days has started to feel bad again. She states that she typically has an asthma flare around this time of year. She reports an intermittently productive cough of a clear to yellow sputum. She denies GI symptoms. She recently had a baby in the beginning of March. She has no known Covid exposures. Covid swab was negative with EMS. She received albuterol, epi IM and 125 Solu-Medrol with EMS. - Related Data Allergies/Adverse Reactions: No Known Allergies Allergy (Verified 08/16/16 16:35) Home Medications: Albuterol Past Medical History - General Information source: Patient - Social History Smoking Status: Former Smoker Chew tobacco use (# tins/day): No Frequency of alcohol use: Occasional Drug Abuse: None Family History: None - Past Medical History Cardiac Medical History: Denies: Hx Hypertension, Hx Pulmonary Embolism, Hx Heart Murmur Pulmonary Medical History: Reports: Hx Asthma - USES INHALERS, Hx Respiratory Failure Denies: Hx Sleep Apnea, Hx Tuberculosis Neurological Medical History: Denies: Hx Cerebrovascular Accident, Hx Seizures Endocrine Medical History: Denies: Hx Diabetes Mellitus Type 1, Hx Diabetes Mellitus Type 2, Hx Hyperthyroidism, Hx Hypothyroidism Renal/ Medical History: Denies: Hx Kidney Stones, Hx Ovarian Cysts, Hx Peritoneal Dialysis, Hx Pelvic Inflammatory Disease Malignancy Medical History: Denies: Hx Breast Cancer, Hx Cervical Cancer, Hx Ovarian Cancer GI Medical History: Denies: Hx Gastroesophageal Reflux Disease, Hx Hiatal Hernia, Hx Ulcer Musculoskeletal Medical History: Denies Hx Fibromyalgia Psychiatric Medical History: Reports: Hx Depression - TAKES ANTI-DEPRESSION MEDS Denies: Hx Bipolar Disorder, Hx Post Traumatic Stress Disorder, Hx Schizophrenia Traumatic Medical History: Denies: Hx Fractures Infectious Medical History: Denies: Hx HIV Past Surgical History: Reports: Hx Section Review of Systems - Review of Systems Constitutional: denies: Fever EENT: No symptoms reported Cardiovascular: denies: Chest pain Respiratory: Cough, Short of breath, Wheezing Gastrointestinal: denies: Abdominal pain, Diarrhea, Nausea, Vomiting Genitourinary: No symptoms reported Female Genitourinary: No symptoms reported Musculoskeletal: No symptoms reported Skin: No symptoms reported Hematologic/Lymphatic: No symptoms reported Neurological/Psychological: No symptoms reported Physical Exam - Vital signs Vitals: Temp Pulse Resp BP Pulse Ox 97.7 F 120 H 24 H 143/89 H 90 L 04/23/20 22:00 04/23/20 22:00 04/23/20 22:00 04/23/20 22:00 04/23/20 22:00 - General General appearance: Appears well, Alert - HEENT Head: Normocephalic, Atraumatic Extraocular movements intact: Yes Pupils: PERRL - Respiratory Respiratory status: Tachypnea, Other - Able to speak in full sentences. No: Labored Breath sounds: Nonproductive cough, Wheezing - Cardiovascular Rhythm: Tachycardia Heart sounds: Normal auscultation - Abdominal Tenderness: Nontender - Extremities General lower extremity: No: Edema - Neurological Neuro grossly intact: Yes Cognition: Normal Orientation: AAOx4 - Psychological Associated symptoms: Normal affect - Skin Skin Temperature: Warm Course - Re-evaluation Re-evalutation: 24-year-old female about 1 month here with shortness of breath/cough/wheezing, she has a history of asthma and typically flares once a year. She received interventions with EMS reports she is feeling better. She is able to speak in full sentences, though remains tachypneic and has inspiratory and expiratory wheezing. Will give another albuterol neb and magnesium. Given that she is recently , will obtain CTA chest to rule out pulmonary embolism, which will also get a lipid look to see if there is any signs of infection in the lung nunes. 04/24/20 01:48 CTA is negative for PE. Does show evidence of mild bilateral pneumonia, concerning for viral pneumonia such as Covid 04/24/20 01:57 Into check on patient, she reports she is feeling better. She is off oxygen and satting 96 to 97% on room air. She does still have some persistent wheezing. I discussed with her lung nunes concerning for Covid, will rapid test her at this time given that she has a 1-month-old at home 04/24/20 04:19 Patient reports she is much improved, she feels comfortable going home, no hypoxia. Rapid Covid is negative. Have prescribed azithromycin and prednisone burst. Return precautions given, stable time of discharge. - Vital Signs Vital signs: Temp Pulse Resp BP Pulse Ox 97.7 F 120 H 19 133/83 H 93 04/23/20 22:13 04/23/20 22:00 04/24/20 02:01 04/24/20 02:01 04/24/20 02:01 - Laboratory Results Result Diagrams: 04/23/20 22:10 04/23/20 22:10 Laboratory Results Interpreted: 04/23/20 04/23/20 04/23/20 22:10 22:10 23:15 WBC 19.4 H Hgb 11.8 L Hct 35.8 L MCV 79 L MCH 26.1 L RDW 14.8 H Lymphocytes % (Manual) 11 L Monocytes % (Manual) 0 L Eosinophils % (Manual) 31 H Abs Neuts (Manual) 11.3 H Abs Monocytes (Manual) 0.0 L Absolute Eos (Manual) 6.0 H Glucose 148 H Urine Protein 100 H Urine Ketones TRACE H Urine Bilirubin MODERATE H Urine Urobilinogen 2.0 H Ur Leukocyte Esterase TRACE H Critical Laboratory Results Reviewed: No Critical Results - Radiology Results Critical Radiology Results Reviewed: No Critical Results Discharge - Discharge Clinical Impression: Asthma exacerbation Qualifiers: Asthma severity: unspecified severity Asthma persistence: intermittent Qualified Code(s): J45.21 - Mild intermittent asthma with (acute) exacerbation Disposition: HOME, SELF-CARE Additional Instructions: Please begin course of prednisone and azithromycin. Use your inhaler every 4 hours, you may use 4 puffs at a time. Please return to the emergency department for any concerning worsening symptoms. Prescriptions: RX: Prednisone [Deltasone 20 mg Tablet] 40 mg PO DAILY 5 Days #10 tablet RX: Azithromycin [Zithromax 250 mg Tablet] 250 mg PO ASDIR PRN #6 tablet PRN Reason: Referrals: LING MIR MD [Primary Care Provider] - Follow up as needed
[2020-04-23] MEDS ORDERED: ALBUTEROL SULFATE 0.083% NEB 2.5 MG/3 ML AMPUL NEB ONE (23:05)
[2020-04-23] MEDS ORDERED: MAGNESIUM SULFATE/D5W 1 GM/100 ML RTUPB IV ONE (23:08)
[2020-04-23 23:19] LABS: HEMATOCRIT 35.8 % (36.0-47.0); HEMOGLOBIN 11.8 g/dL (12.0-15.5); MEAN CORPUSCULAR HEMOGLOBIN 26.1 pg (27.0-33.4); MEAN CORPUSCULAR VOLUME 79 fl (80-97); PLATELET COUNT 278 10^3/uL (150-450); RED BLOOD COUNT 4.52 10^6/uL (3.72-5.28); RED CELL DISTRIBUTION WIDTH 14.8 % (11.5-14.0); WHITE BLOOD COUNT 19.4 10^3/uL (4.0-10.5)
[2020-04-23 23:25] LABS: ANION GAP 7 (5-19); BLOOD UREA NITROGEN 8 mg/dL (7-20); CALCIUM 9.2 mg/dL (8.4-10.2); CARBON DIOXIDE 28 mmol/L (22-30); CHLORIDE 105 mmol/L (98-107); GLUCOSE 148 mg/dL (75-110); POTASSIUM 3.6 mmol/L (3.6-5.0)
[2020-04-23 23:39] LABS: APPEARANCE,URINE SLIGHTLY-CLOUDY; BILIRUBIN,URINE MODERATE (NEGATIVE); COLOR,URINE YELLOW; GLUCOSE, URINE NEGATIVE (NEGATIVE); KETONES,URINE TRACE mg/dL (NEGATIVE); LEUKOCYTE ESTERASE,URINE TRACE (NEGATIVE); NITRITE,URINE NEGATIVE (NEGATIVE); PROTEIN,URINE 100 mg/dL (NEGATIVE); URINE SPECIFIC GRAVITY 1.032
[2020-04-23 23:53] LABS: ABSOLUTE LYMPHOCYTES# (MANUAL) 2.1 10^3/uL (0.5-4.7); BASOPHILS % (MANUAL) 0 % (0-2); LYMPHOCYTES % (MANUAL) 11 % (13-45); MONOCYTES % (MANUAL) 0 % (3-13); SEGMENTED NEUTROPHILS % (MAN) 58 % (42-78); TOTAL CELLS COUNTED 100
[2020-04-23 23:54] LABS: ANISOCYTOSIS SLIGHT; EOSINOPHILS % (MANUAL) 31 % (0-6)
[2020-04-23 23:59] LABS: PLATELET COMMENT ADEQUATE
--- NOTE | 2020-04-24 01:39 | RADIOLOGY REPORT (SQ) ---
CLINICAL HISTORY: SOB, hypoxia, eval PE. PT C/O ASTHMA FLARE UP. CREAT 0.60, HCG NEG. COMPARISON: None. TECHNIQUE: CT CHEST ANGIOGRAPHY WITH IV CONTRAST on 04/24/2020 12:00 AM DIRECT[employer]. MIPS reconstructions were generated. This exam was performed according to our departmental dose-optimization program, which includes automated exposure control, adjustment of the mA and/or kV according to patient size and/or use of iterative reconstruction technique. MIP images were generated. FINDINGS: Thoracic aorta is normal in course and caliber without aneurysm or dissection. Pulmonary arteries are adequately opacified without acute or chronic filling defects. The heart is normal in size. There is no pericardial effusion. Intrathoracic lymph nodes are not enlarged. There is no pleural effusion, pleural thickening or pneumothorax. Central airways are patent. There are mild nonspecific scattered groundglass opacities throughout both lungs. There is mid lung predominance. There are no acute abnormalities within the limited images of the upper abdomen. There are no acute osseous findings. No suspicious bony lesions. IMPRESSION: No aortic dissection or aneurysm. No pulmonary embolus. Probable mild bilateral pneumonia. Imaging features can be seen with viral pneumonia, though are nonspecific and can occur with a variety of infectious and noninfectious processes. [PneInd]
[2020-04-24] MEDS ORDERED: GUAIFENESIN 600 MG TABLET.SA PO ONE (01:56)
[2020-04-24] MEDS ORDERED: ALBUTEROL SULFATE 0.083% NEB 2.5 MG/3 ML AMPUL NEB ONE (01:56)
[2020-04-24] MEDS ORDERED: RINGERS SOLUTION,LACTATED 1,000 ML IV ONE (01:57)
[2020-04-24] MEDS ORDERED: ALBUTEROL SULFATE HFA (90 MCG/PUFF) 8 GM MDI (1 MDI/ER DISP) IH ONE (04:20)
[2020-04-24 06:18] VITALS: BP 114/67
[2020-04-26 12:31] LABS: PATH REVIEW PATHOLOGIST REVIEWED
== END 2020-04-24 06:28 | disposition home or self-care (01) ==
LOC: ER 21:57
DX: O90.9 Complication of the puerperium, unspecified (principal); J45.21 Mild intermittent asthma with (acute) exacerbation; Z20.822 Contact with and (suspected) exposure to COVID-19
CPT/HCPCS: 94640 ×2; 99285; 96361; 96365; 36415; 85025; 0241U ×4; 81025; 80048; 81001; 71275; J3490 ×2; J3475; J7120; J7613 ×2; C9803